=== PATIENT | male | born 1965 | race Caucasian/White ===

== ENCOUNTER 2016-09-07 12:12 | Emergency (ER) | payer BC ==
[~2016-09-07] VITALS: Ht 190.5 cm; Wt 102.1 kg
[2016-09-07 12:13] VITALS: BP 144/94
[2016-09-07] MEDS ORDERED: PARO20TA3 (12:19)
== END 2016-09-07 12:56 | disposition home or self-care (01) ==
LOC: M ED 12:37
DX: J01.90 Acute sinusitis, unspecified (principal); H92.03 Otalgia, bilateral

== ENCOUNTER 2017-07-16 22:11 | Emergency (ER) | payer BC ==
[2017-07-16] MEDS: KETOROLAC 60 MG/2 ML VIAL (J1885) IM (23:12)
[2017-07-17] MEDS: PERCOCET 5MG/325MG TAB PO (00:12)
[2017-07-17] MEDS: CYCLOBENZAPRINE 10 MG TAB PO (00:12)
== END 2017-07-17 00:24 | disposition home or self-care (01) ==
LOC: M ED 07-17 00:24
DX: M51.37 Other intervertebral disc degeneration, lumbosacral region (principal); F41.9 Anxiety disorder, unspecified; Z79.899 Other long term (current) drug therapy; F17.210 Nicotine dependence, cigarettes, uncomplicated
CPT/HCPCS: J1885

== ENCOUNTER → 2018-10-03 | Outpatient (REF) | payer BC ==
[~2018-10-03] MED LIST: CYCL10TA PO; PARO20TA3; PERC5TAB12 PO
== END ==
LOC: M LAB REF 16:38
PROVIDERS: ATTEND Physician Assistant
DX: J02.9 Acute pharyngitis, unspecified (principal)

== ENCOUNTER → 2018-10-03 | Outpatient (CLI) | payer BC ==
--- NOTE | 2018-10-03 11:19 | REP ---
Left knee five views History: Pain There is no acute fracture or dislocation. The joint spaces are normal in appearance. A calcified density is present medial to the patella. This represents ligamentous or tendon calcification. Impression: There is no acute fracture or dislocation. Electronically Signed by Leland Nugent MD 10/03/2018 11:11 A
== END ==
LOC: M WUC 10:13
PROVIDERS: ATTEND Physician Assistant
DX: M25.562 Pain in left knee (principal)

== ENCOUNTER → 2018-12-14 | Outpatient (REF) | payer BC ==
[~2018-12-14] MED LIST changes: +NAPR-837 PO; -PARO20TA3; +PARO20TA3 PO
[2018-12-14 15:51] LABS: BASO % 0.4 % (0.0-1.0); EOS # 0.2 10^3/uL (0.0-0.50); LYMPH # 2.6 10^3/uL (1.5-4.5); LYMPH % 35.9 % (24.0-44.0); MEAN CORPUSCULAR HEMOGLOBIN 31.8 pg (27.0-33.0); MEAN CORPUSCULAR HGB CONC 34.1 g/dl (32.0-36.5); MEAN CORPUSCULAR VOLUME 93.4 fl (80.0-96.0); MONO # 0.8 10^3/uL (0.0-0.8); MONO % 10.8 % (0.0-5.0); NEUTROPHILS # 3.5 10^3/uL (1.8-7.7); NEUTROPHILS % 49.8 % (36.0-66.0); PLATELET COUNT, AUTOMATED 291 10^3/uL (150-450); RED BLOOD COUNT 4.71 10^6/uL (4.30-6.10); WHITE BLOOD COUNT 7.1 10^3/uL (4.0-10.0)
[2018-12-14 16:43] LABS: ERYTHROCYTE SEDIMENTATION RATE 12 mm/hr (0-20)
[2018-12-17 00:06] LABS: Lyme Disease IgG/IgM Antibodie <0.91 ISR (0.00-0.90); Lyme Disease IgM Ab Quantitati <0.80 index (0.00-0.79)
== END ==
LOC: M LABDRAW1 13:17
PROVIDERS: ATTEND Orthopaedic Surgery
DX: M17.12 Unilateral primary osteoarthritis, left knee (principal)

== ENCOUNTER 2019-03-07 11:52 | Day surgery (SDC) | payer BC ==
[~2019-03-07] VITALS: Ht 190.5 cm; Wt 102.1 kg
[~2019-03-07 11:52] MED LIST changes: +LIDOCAINE 2% INJ 100 MG/5 ML SDV (FOR ANES.) As Ordered ONE; -NAPR-837 PO; +NS 1,000 ML IV ONE; +PROPOFOL 200 MG/20 ML VIAL As Ordered ONE
[2019-03-07] MEDS ORDERED: PHENYLephrine HCL 500 MCG/5 ML (100MCG/ML) SYRINGE (J2370) As Ordered ONE (13:46)
[2019-03-07] MEDS ORDERED: PROPOFOL 200 MG/20 ML VIAL As Ordered ONE (14:08)
--- NOTE | 2019-03-07 14:09 | ROOR ---
Patient Name: Jonathan Kaminski Procedure Date: 03/07/2019 1:35 PM Date of : 1965 Age: 53 Room: [facility] Gender: Male Note Status: Finalized Procedure: Total Colonoscopy to Cecum + Cold Snare Polypectomy + Hemoclip Indications: High risk colon cancer surveillance: Personal history of colonic polyps, Last colonoscopy: 2014 Providers: Leroy Coburn MD Referring MD: PHILIP Brown Requesting Provider: Medicines: Monitored Anesthesia Care Complications: No immediate complications. Procedure: Pre-Anesthesia Assessment: - The heart rate, respiratory rate, oxygen saturations, blood pressure, adequacy of pulmonary ventilation, and response to care were monitored throughout the procedure. The Colonoscope was introduced through the anus and advanced to the cecum, identified by appendiceal orifice and ileocecal valve. The colonoscopy was performed without difficulty. The patient tolerated the procedure well. The quality of the bowel preparation was excellent. Findings: The perianal and digital rectal examinations were normal. Non-bleeding internal hemorrhoids were found during retroflexion. The hemorrhoids were small and Grade I (internal hemorrhoids that do not prolapse). Scattered small-mouthed diverticula were found in the recto-sigmoid colon, sigmoid colon and descending colon. Multiple sessile polyps were found in the mid ascending colon. The polyps were small in size. These polyps were removed with a cold snare. Resection and retrieval were complete. To prevent bleeding after the polypectomy, one hemostatic clip was successfully placed (MR conditional). There was no bleeding at the end of the procedure. The exam was otherwise without abnormality on direct and retroflexion views. Impression: - Non-bleeding internal hemorrhoids. - Diverticulosis in the recto-sigmoid colon, in the sigmoid colon and in the descending colon. - Multiple small polyps in the mid ascending colon, removed with a cold snare. Resected and retrieved. Clip (MR conditional) was placed. - The examination was otherwise normal on direct and retroflexion views. - The exam was otherwise normal to the cecum. Recommendation: - Patient has a contact number available for emergencies. The signs and symptoms of potential delayed complications were discussed with the patient. Return to normal activities tomorrow. Written discharge instructions were provided to the patient. - High fiber diet. - Discharge patient to home. - Continue present medications. - Await pathology results. - Telephone GI clinic for pathology results in 1 week. - Repeat colonoscopy date to be determined after pending pathology results are reviewed for surveillance. - Return to referring physician. - The findings and recommendations were discussed with the patient's family. Leroy Coburn MD Leroy Coburn MD 03/07/2019 2:09:08 PM Electronically signed by Leroy Coburn MD Number of Addenda: 0 Note Initiated On: 03/07/2019 1:35 PM Estimated Blood Loss: Estimated blood loss: none.
[2019-03-07 14:35] VITALS: BP 142/95
== END 2019-03-07 14:50 | disposition home or self-care (01) ==
LOC: M OPP 11:52
PROVIDERS: ATTEND Internal Medicine Gastroenterology
DX: Z12.11 Encounter for screening for malignant neoplasm of colon (principal); Z86.010 Personal history of colon polyps; K64.0 First degree hemorrhoids; K57.30 Diverticulosis of large intestine without perforation or abscess without bleeding; D12.2 Benign neoplasm of ascending colon; F41.9 Anxiety disorder, unspecified; F17.210 Nicotine dependence, cigarettes, uncomplicated; Z79.899 Other long term (current) drug therapy
CPT/HCPCS: 45385; 88305; J2370

== ENCOUNTER 2019-04-26 07:53 | Emergency (ER) | payer OTHER, BC ==
[~2019-04-26] VITALS: Ht 190.5 cm; Wt 102.3 kg
[~2019-04-26 07:53] MED LIST changes: -LIDOCAINE 2% INJ 100 MG/5 ML SDV (FOR ANES.) As Ordered ONE; -NS 1,000 ML IV ONE; -PROPOFOL 200 MG/20 ML VIAL As Ordered ONE
--- NOTE | 2019-04-26 09:45 | REP ---
Clinical: Trauma. Fall. Technique: Frontal view of the pelvis with neutral and frog lateral views of the right hip. Findings: No obvious acute fracture dislocation. Skeletal structures, joint spaces, and surrounding soft tissues appear relatively normal for age. Impression: No acute fracture or dislocation. Electronically Signed by Joe Grimes MD 04/26/2019 09:36 A
--- NOTE | 2019-04-26 09:46 | REP ---
Clinical: Trauma. Fall. . Technique: AP, lateral, bilateral oblique, and coned-down views. Findings: Alignment and lordosis is maintained. The vertebral bodies including transverse process and spinous processes are intact and there is no evidence for acute fracture / compression injury or subluxation. No evidence for spondylolysis or spondylolisthesis. Mild/early moderate generalized age-related changes noted. Impression: Generalized age-related changes. No acute lumbosacral spine trauma/injury appreciated. Electronically Signed by Joe Grimes MD 04/26/2019 09:37 A
[2019-04-26] MEDS ORDERED: NAPR-837 PO (10:00)
[2019-04-26 10:10] VITALS: BP 111/73
== END 2019-04-26 10:12 | disposition home or self-care (01) ==
LOC: M ED 07:53
DX: S30.0XXA Contusion of lower back and pelvis, initial encounter (principal); W18.30XA Fall on same level, unspecified, initial encounter; Y92.098 Other place in other non-institutional residence as the place of occurrence of the external cause; M51.36 Other intervertebral disc degeneration, lumbar region; F41.9 Anxiety disorder, unspecified; Z79.899 Other long term (current) drug therapy

== ENCOUNTER → 2019-06-11 | Outpatient (REF) | payer BC ==
[~2019-06-11] MED LIST changes: +NAPR-837 PO
[2019-06-11 15:30] LABS: BASO % 0.6 % (0.0-1.0); EOS # 0.2 10^3/uL (0.0-0.5); EOS % 2.8 % (0.0-3.0); HEMATOCRIT 48.6 % (42.0-52.0); HEMOGLOBIN 16.2 g/dl (13.5-17.5); LYMPH # 2.4 10^3/uL (1.5-5.0); LYMPH % 37.2 % (24.0-44.0); MEAN CORPUSCULAR HEMOGLOBIN 31.4 pg (27.0-33.0); MEAN CORPUSCULAR HGB CONC 33.3 g/dl (32.0-36.5); MEAN CORPUSCULAR VOLUME 94.2 fl (80.0-96.0); MONO # 0.6 10^3/uL (0.0-0.8); MONO % 8.9 % (0.0-5.0); NEUTROPHILS # 3.2 10^3/uL (1.5-8.5); NEUTROPHILS % 50.2 % (36.0-66.0); PLATELET COUNT, AUTOMATED 312 10^3/uL (150-450); RED BLOOD COUNT 5.16 10^6/uL (4.30-6.10); WHITE BLOOD COUNT 6.4 10^3/uL (4.0-10.0)
[2019-06-11 15:55] LABS: ERYTHROCYTE SEDIMENTATION RATE 9 mm/hr (0-20)
[2019-06-11 16:02] LABS: ALBUMIN 3.9 GM/DL (3.2-5.2); BILIRUBIN,DIRECT 0.1 MG/DL (0.0-0.2); BILIRUBIN,TOTAL 0.4 MG/DL (0.2-1.0); CALCIUM LEVEL 9.1 MG/DL (8.5-10.1); TOTAL PROTEIN 7.5 GM/DL (6.4-8.2)
== END ==
LOC: M LABDRAW1 11:04
PROVIDERS: ATTEND Internal Medicine Pulmonary Disease
DX: R91.8 Other nonspecific abnormal finding of lung field (principal)

== ENCOUNTER 2020-06-24 22:27 | Emergency (ER) | payer BC ==
[~2020-06-24] VITALS: Ht 190.5 cm; Wt 108.5 kg
[~2020-06-24 22:27] MED LIST changes: +CYCL-707 PO; -CYCL10TA PO
--- OUTSIDE RECORDS SUMMARY | 2020-06-24 22:34 | CCD ---
Author [facility] Organization [facility] Address [address] [place] [address] Phone Care Team Providers Care Director [employer] Name Role Phone Isaac EDUCATION DEAN, Gina Costello PP [phone] Rola Bañuelos Unavailable [phone] [facility] Gastroenterology and Metabolic Disease, [facility] Unavailable [phone] Reason for Referral No Reason for Referral Recorded Problems Includes: Active, inactive, and resolved Problems All Visits Onset Date - Time Resolved Date - Time Provider Co ndition Status Hypertension (Systemic) 05/20/2020 - 8:41AM Gina Gray NP Active Emphysema, unspecified 01/23/2020 - 12:00AM Gina Gray NP Active Note: per pulmonary consult 01/2020 Solitary Pulmonary Nodule 05/28/2019 - 12:00AM Gina Gray NP Active Note: 16.5 mm left upper lob e Preventive Medicine Services 05/15/2019 - 12:00AM Kelsey Gray NP Active Osteoarthritis Localized Knee Left 12/12/2018 - 12:00AM Vika Aguilar RN Active Note: Mechanical problems in the left knee, probably had a remote dislocation in a general counselor, no degenerative arthritis seen on the x-ray. MRI scan recomended. Overweight 10/28/2016 - 12:00AM Ana Rosa PALACIOS Active Trigeminal Neuralgia 02/06/2013 - 12:00AM Unknown - Unknown Vika Patel NP Resolved Note: followed by dr beatrice spencer, referral to neurology made per note re eval 7-[address] spencer Vitamin D Deficiency 03/09/2011 - 12:00AM Ana Rosa PALACIOS Active Note: Unchanged Impaired Fasting Glucose 03/03/2011 - 12:00AM Unknown - Unknown Vika J. Shaben EDUCATION DEAN Resolved Note: Unchanged - FBG 101; r epeat labs pending Nicotine Dependence 03/02/2011 - 12:00AM Ana Rosairma PALACIOS Active Note: Unchanged - started ag e 20; 1/2 ppd; interested in dual therapy Elevated Blood Pressure Reading Without Diagnosis of H yperte 03/04/2010 - 12:00AM Gina Gray NP Inactive Note: Unchanged - White coat hypertension at times Hyperlipidemia 03/04/2010 - 12:00AM Ana Rosa Rodney Cline P A Active Note: Unchanged Anxiety Disorder Nos 07/15/2009 - 12:00AM Ana Rosa Rodney Rangela yamil PALACIOS Active Note: Well-Controlled - on P axil for many years Other and Unspecified Injury to Finger 10/29/2008 - 12:00AM Unkn own - Unknown Vika Patel EDUCATION DEAN Resolved Note: 09/25/08 right thumb de bridement of open fx, removal of skin fat , fascia and bone, internal fixation proximal phalanx intrarticular and extensor tendon repair done by Dr. Antoine Currently followed by [facility] whom pt went to for 2nd opinion Plan of Treatment Referrals To Diagnosis GI - Colonoscopy - Referral Note: Please schedule patient with provi jaylen; prefers [facility] GI - Colonoscopy - Referral Encntr for g eneral adult medical exam w/o abnormal findings Note: Please schedule patient with provi jaylen; requests [facility] Encounter for genera l adult medical exam w abnormal findings Note: Please schedule patient with [facility] j[facility]; colonoscopy. previously seen [facility] but would like to go to [facility] last scourer apt. language barrier with previous office. previous colonoscopy with polyps and repeat was due 04/2016. GI - Colonoscopy - Referral Leroy Coburn MD Encounter fo r screening for malignant neoplasm of colon Note: Please schedule patient with provi jaylen; colonoscopy; requesting [place]. history polyps Pulmonology Solitary pulmonary n odule Note: Please schedule patient with provi jaylen for findings on low dose CT lung. See images [facility] Urology Elevated prosta te specific antigen [PSA] Note: Please schedule patient with [facility] in [place] Future Appointments Date Time Location Provider Chronic Disease Follow-up 11/24/2020 4:00PM [facility] Gina Gray NP Future Tests Order Diagnosis Results Due Ordering Provid er Visit Summary - Standard Visit Visit Summary Standard Visi t Essential (primary) hypertension 06/05/20 Gina Gray EDUCATION DEAN Lab CBC w/ Auto Diff 12/02/20 Gina Gu imball EDUCATION DEAN Lab COMPREHENSIVE METABOLIC PANEL 12/02/20 Gina Gray EDUCATION DEAN Lab LIPID PANEL 12/02/20 Ginakatey Burton ll EDUCATION DEAN Lab TSH 12/02/20 Gina Burton ll EDUCATION DEAN Findings Encounter Date Ordered return to the clinic if condition worsens or n ew symptoms arise Primary Care Telehealth FaceTime with Gina Gray NP 06/03/2020 Ordered return to the clinic if condition worsens or n ew symptoms arise Acute Follow-up Telehealth with Gina Gray NP 05/21/2020 Ordered return to the clinic if condition worsens or n ew symptoms arise AHR with Gina Gray NP 05/20/2020 Ordered Clinical summary transmitted to referring provider electronically with reasonable certainty of receipt or receiving provider electronically through [employer] [facility] Follow-up Labs with Gina Gray NP 05/28/2019 Ordered Clinical summary transmitted to referring provider electronically with reasonable certainty of receipt or receiving provider electronically through [employer] [facility] Establish Care with Gina Gray NP 05/15/2019 Ordered Clinical summary transmitted to referring provider electronically or receiving provider electronically through [employer] [facility] AHR with Ana Rosa PALACIOS 05/09/2018 Ordered return to the clinic if condition worsens or n ew symptoms arise AHR with Ana Rosa PALACIOS 05/09/2018 Ordered return to the clinic if condition worsens or n ew symptoms arise AHR with Ana Rosa Cline PA 05/05/2017 Ordered Transition in care, clinical sum mariluz provided electronically through [employer] Chronic Disease Follow-up with Ana Rosa PALACIOS 10/28/2016 Return to the clinic if condition worsens or new sympt oms arise Chronic Disease Follow-up with Ana Rosa PALACIOS 10/28/2016 Ordered fluids Walk-In with Mariluz Hastings EDUCATION DEAN 10/11/2016 Ordered return to the clinic if condition worsens or n ew symptoms arise Walk-In with Mariluz Hastings EDUCATION DEAN 10/11/2016 Ordered Transition in care, clinical sum mariluz provided electronically through [employer] Walk-In with Mariluz Hastings NP 10/11/2016 Ordered return to the clinic if condition worsens or n ew symptoms arise AHR with Ana Rosa PALACIOS 07/22/2015 Ordered disposition - 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 Patient or quality assurance was instructed in use of medication for otitis media. Importance of followup was stressed. Also discussed appropiate use of antipyretics and decongestants. Also, the patient is to return if there is persistnece of fever or severe pain for more than 48 hours, or other new significant symptoms Same Day Acute with Mariluz Hastings NP 09/16/2013 Ordered return to the clinic if condition worsens or n ew symptoms arise Same Day Acute with Mariluz Hastings NP 09/16/2013 Ordered follow-up visit 1 year Medication Follow-up with Matt Patel NP 07/11/2013 Ordered return to the clinic if condition worsens or n ew symptoms arise Medication Follow-up with Vika Patel NP 07/11/2013 Medications as reviewed. Order CXR Tylenol PRN RTC if symptoms persist or worsen M Same Day with Roselyn Box NP 07/04/2012 Ordered return to the clinic if condition worsens or n ew symptoms arise M Same Day with Roselyn Box NP 07/04/2012 Ordered follow-up visit 1 year AHR with Vika Patel NP 03/07/2012 Ordered return to the clinic if condition worsens or n ew symptoms arise AHR with Vika Patel NP 03/07/2012 Ordered follow-up visit 6 months/ 1 year 30 minutes with Emely Patel NP 03/02/2011 Ordered return to the clinic if condition worsens or n ew symptoms arise 30 minutes with Vika Patel NP 03/02/2011 Advised to increase PO fluids and inc rease rest. Tylenol / motrin prn pain / fever. Will send urine for urinalysis and culture. May consider urology referral if he has had history of infections in past. He routinely sees Vika Patel NP who is PCP. He was advised to RTC if no improvement in 48 hours or sooner with new or worsening sx. Patient expressed understanding and agreed with plan M Same Day with Queta Aponte NP 08/27/2010 Ordered return to the clinic if condition worsens or n ew symptoms arise M Same Day with Queta Aponte NP 08/27/2010 Ordered fluids M Same Day with Mariluz PALACIOS 04/08 Ordered return to the clinic if condition worsens or n ew symptoms arise M Same Day with Mariluz PALACIOS 04/08/2010 Ordered a lipid profile 30 minutes with Vika Patel NP 03/04/2010 Ordered CBC CMP, TSH, PSA 30 minutes with Vika Patel NP 03/04/2010 Ordered follow-up visit 6 months 30 minutes with Vika Patel NP 03/04/2010 Ordered fluids M Office Visit - Short with Sotero brand DO 01/19/2010 Ordered return to the clinic if condition worsens or n ew symptoms arise M Office Visit - Short with Sotero Wren DO 01/19/2010 Ordered a comprehensive metabolic panel CBC Lipids 3 0 minutes with Vika Patel NP 07/15/2009 Ordered follow-up visit 30 minutes with Vika Patel NP 07/15/2009 Ordered thyroid function tests 30 minutes with Vika regalado NP 07/15/2009 Assessments Includes: Assessments for all patient encounters Findings Encounter Date Conjunctivitis in the left eye Primary Care Telehealth FaceTime with Gina Gray EDUCATION DEAN 06/03/2020 Hypertension Primary Care Telehealth FaceTime with Landon Gray EDUCATION DEAN 06/03/2020 Nicotine dependence Primary Care Telehealth FaceTime with Landon Gray EDUCATION DEAN 06/03/2020 Overweight Primary Care Telehealth FaceTime with Landon Gray EDUCATION DEAN 06/03/2020 Assessment of nonspecific abnormal results of liver fu nction studies Acute Follow-up Telehealth with Gina Gray EDUCATION DEAN 05/21/2020 Assessment of prostate-specific antigen in serum was e levated Acute Follow-up Telehealth with Gina Gray EDUCATION DEAN 05/21/2020 Anxiety disorder NOS AHR with Gina Gray EDUCATION DEAN Conjunctivitis in the left eye AHR with Gina Gray EDUCATION DEAN 05/20/2020 Dermatitis AHR with Gina Gray EDUCATION DEAN 05/20/2020 Hyperlipidemia AHR with Gina L Vinton EDUCATION DEAN 05/20/2020 Hypertension AHR with Gina L Vinton EDUCATION DEAN 05/20/2020 Nicotine dependence AHR with Gina L Vinton EDUCATION DEAN 05/20/2020 Overweight AHR with Gina L Vinton EDUCATION DEAN 05/20/2020 Visit for: routine adult H&P with abnormal findings AH R with Gina L Isaac EDUCATION DEAN 05/20/2020 Assessment of solitary pulmonary nodule Follow-up Labs with Gina L Isaac EDUCATION DEAN 05/28/2019 Anxiety disorder NOS Establish Care with Gina L Isaac N P 05/15/2019 Hyperlipidemia Establish Care with Gina L Vinton EDUCATION DEAN 05/15/2019 Nicotine dependence Establish Care with Gina L Isaac EDUCATION DEAN 05/15/2019 Overweight Establish Care with Gina L Vinton EDUCATION DEAN 05/15/2019 Visit for routine adult H&P without abnormal findings Establish Care with Gina L Isaac EDUCATION DEAN 05/15/2019 Vitamin D deficiency Establish Care with Gina L Vinton N P 05/15/2019 Anxiety disorder NOS AHR with Ana Rosa T [place] PA 05/09/2018 Hyperlipidemia AHR with Ana Rosa T [place] PA 05/09/2018 Nicotine dependence AHR with Ana Rosa T Son PA 05/09/2018 Visit for: routine adult H&P AHR with Ana Rosa T Son PA Vitamin D deficiency AHR with Ana Rosa T [place] PA 05/09/2018 Anxiety disorder NOS AHR with Ana Rosa T Son PA 05/05/2017 Upper respiratory infection AHR with Ana Rosa T [place] PA 07/2017 Visit for: routine adult H&P AHR with Ana Rosa T Son PA Anxiety disorder NOS Chronic Disease Follow-up with Ana Rosa T [place] PA 10/28/2016 Hyperlipidemia Chronic Disease Follow-up with Ana Rosa T [place] PA 10/28/2016 Nicotine dependence Chronic Disease Follow-up with Ana Rosa T Son PA 10/28/2016 Overweight Chronic Disease Follow-up with Ana Rosa T [place] PA 10/28/2016 Vitamin D deficiency Chronic Disease Follow-up with Ana Rosa T [place] PA 10/28/2016 Viral syndrome Walk-In with Mariluz Hastings EDUCATION DEAN 10/11/2016 Anxiety disorder NOS AHR with Ana Rosa T [place] PA 07/22/2015 Hyperlipidemia AHR with Ana Rosa T Son PA 07/22/2015 Nicotine dependence AHR with Ana Rosa T [place] PA 07/22/2015 Visit for: routine adult H&P AHR with Ana Rosa T [place] PA Vitamin D deficiency AHR with Ana Rosa T [place] PA 07/22/2015 Anxiety disorder NOS AHR with Ana Rosa T [place] PA 07/16/2014 Hyperlipidemia AHR with Ana Rosa T [place] PA 07/16/2014 Nicotine dependence AHR with Ana Rosa T Son PA 07/16/2014 Normal routine history and physical adult AHR with Ana Rosa T Son PA 07/16/2014 Vitamin D deficiency AHR with Ana Rosa T Son PA 07/16/2014 Acute bronchitis Same Day Acute with Mariluz Nicole Navi talamantes EDUCATION DEAN 09/16/2013 Otitis media BILAT Same Day Acute with Elainedonte talamantes EDUCATION DEAN 09/16/2013 Anxiety disorder NOS Medication Follow-up with Vika regalado NP 07/11/2013 Nicotine dependence Medication Follow-up with Vika kent EDUCATION DEAN 07/11/2013 Normal routine history and physical Medication Follow- up with Vika Patel NP 07/11/2013 Bronchitis M Same Day with Roselyn Box EDUCATION DEAN 013 Normal routine history and physical s ee updated problem list above for impression and plan of any problems addressed today. AHR with Vika Patel EDUCATION DEAN 03/07/2012 Normal routine history and physical Anxiety Elevated BP without diagnosis of hypertension 30 minutes with Vika Patel NP 03/02/2011 Urinary tract infection M Same Day with Queta Aponte NP Bronchitis M Same Day with Mariluz PALACIOS 04/08 Impaired fasting glucose M Same Day with Mariluz PALACIOS 04/08/2010 Pharyngitis M Same Day with Mariluz PALACIOS 04/08 Impaired Fasting Glucose Elevated BP without dx of hypertension 30 minutes with Vika Patel NP 03/04/2010 Anxiety disorder NOS 30 minutes with Vika Patel NP 06/2009 Hyperlipidemia 30 minutes with Vika Patel NP 06/2009 Nicotine dependence - continuous M Office Visit - Shor t with Sotero Wren DO 01/19/2010 Upper respiratory infection M Office Visit - Short with Indy Wren DO 01/19/2010 Generalized anxiety disorder 30 minutes with Vika del angel NP 07/15/2009 Instructions Instructions not supported for this document typeNo Instructions Recorded Medical Equipment - Implanted Devices Includes: Current and historical DevicesNo Medical Equipment Recorded Medications Includes: Current and historical Medications Current Medications (continue as prescribed) Gentamicin Sulfate 0.3% Ophthalmic Solution 06/03/2020 - 07/2020 Provider: Gina Gray NP Diagnosis: Unspecified conjunct ivitis 2 drops both eyes 4 times a day for 7 days PARoxetine HCl 20 MG Oral Tablet 05/20/2020 Provide r: Gina Gray NP Diagnosis: Anxiety disorder, un specified 1 tab by mouth once a day Past Medications on file Erythromycin 5 MG/GM Ophthalmic Ointment 05/20/2020 - 2020 Provider: Gina Gray NP Diagnosis: Unspecified conjunct ivitis 0.5 inch ribbon to both eyes 4 times daily for 7 days PARoxetine HCl 20 MG Oral Tablet 05/05/2020 - 05/20/2020 Pro vider: Gina Gray NP Diagnosis: Hyperlipidemia, unsp ecified 1 tab by mouth once a day Anoro Ellipta 62.5-25 MCG/INH Inhalation Aerosol Powde r Breath Activated 06/14/2019 - 10/11/2019 Provider: Pepe Torres MD Diagnosis: Paxil 20 MG Oral Tablet 05/10/2019 - 05/05/2020 Provider: Gina Gray NP Diagnosis: Hyperlipidemia, unsp ecified once a day Nicotine 7MG/24HR Transdermal Patch 24 Hour 06/09/2018 - Provider: Ana Rosa PALACIOS Diagnosis: Nicotine dependence, cigarettes, uncomplicated once a day; 1 patch transdermal; change every 24 hours; begin after finishing 14 mg patch Nicotine 14MG/24HR Transdermal Patch 24 Hour 06/09/2018 - Provider: Ana Rosa PALACIOS Diagnosis: Nicotine dependence, cigarettes, uncomplicated once a day; 1 patch transdermal; change every 24 hours Paxil 20MG Oral Tablet 05/09/2018 - 05/10/2019 Provider: Ana Rosa PALACIOS Diagnosis: Hyperlipidemia, unsp ecified once a day Nicotine Polacrilex 4MG Mouth/Throat Lozenge 05/09/2018 - Provider: Ana Rosa PALACIOS Diagnosis: Nicotine dependence, cigarettes, uncomplicated as directed; place losenge in cheek as n eeded for breakthrough cravings; use lowest affective dose; MDD 2 losenges Nicotine 21MG/24HR Transdermal Patch 24 Hour 05/09/2018 - Provider: Ana Rosa PALACIOS Diagnosis: Nicotine dependence, cigarettes, uncomplicated once a day; 1 patch transdermal q 24 hours Paxil 20MG Oral Tablet 05/09/2018 - 05/09/2018 Provider: Ana Rosa PALACIOS Diagnosis: Hyperlipidemia, unsp ecified once a day Paxil 20MG Oral Tablet 05/05/2017 - 05/09/2018 Provider: Ana Rosa PALACIOS Diagnosis: Hyperlipidemia, unsp ecified once a day Benzonatate 200MG Oral Capsule 10/11/2016 - 10/28/2016 Provi jaylen: Mariluz Hastings NP Diagnosis: three times a day prn cough Ventolin HFA 108 (90 Base)MCG/ACT Inhalation Aerosol S olution 10/11/2016 - 05/05/2017 Provider: Mariluz Hastings NP Diagnosis: 2 PUFFS INH Q 4 - 6 HRS PRN Paxil 20MG Oral Tablet 09/30/2016 - 05/05/2017 Provider: Ana Rosa PALACIOS Diagnosis: Hyperlipidemia, unsp ecified once a day Paxil 20 MG Tablet 10/20/2015 - 10/11/2016 Provider: Ana Rosa PALACIOS Diagnosis: Anxiety disorder, un specified qd - once a day once a day 1 tab po daily Paxil 20 MG Tablet 10/02/2015 - 09/30/2016 Provider: Ana Rosa PALACIOS Diagnosis: Hyperlipidemia, unsp ecified once a day Paxil 20 MG Tablet 10/02/2015 - 10/20/2015 Provider: Ana Rosa PALACIOS Diagnosis: Anxiety disorder, un specified qd - once a day once a day 1 tab po daily Paxil 20 MG Tablet 07/22/2015 - 10/02/2015 Provider: Ana Rosa PALACIOS Diagnosis: Hyperlipidemia, unsp ecified once a day Paxil 20 MG Tablet 07/22/2015 - 10/02/2015 Provider: Ana Rosa PALACIOS Diagnosis: Anxiety disorder, un specified qd - once a day once a day 1 tab po daily Vitamin D 1000 UNIT Tablet 08/30/2014 - 07/22/2015 Provider: Diagnosis: Paxil 20 MG Tablet 07/16/2014 - 07/22/2015 Provider: Ana Rosa PALACIOS Diagnosis: Anxiety State Unspec ified qd - once a day once a day 1 tab po daily Augmentin 875-125 MG OR TABS 09/16/2013 - 07/16/2014 Provide r: Mariluz Leavittanagan EDUCATION DEAN Diagnosis: Paxil 20 MG OR TABS 07/11/2013 - 07/16/2014 Provider: Vika Patel NP Diagnosis: Anxiety State Unspec ified 1 tab po daily Paxil 20 MG OR TABS 05/09/2013 - 07/11/2013 Provider: Vika Patel EDUCATION DEAN Diagnosis: Anxiety State Unspec ified 1 tab po daily carBAMazepine 100 MG OR CHEW 02/06/2013 - 07/11/2013 Provide r: Diagnosis: per dr spencer 100mg tablet Ventolin HFA 108 (90 Base) MCG/ACT IN AERS 07/04/2012 - 11/2012 Provider: Roselyn Box NP Diagnosis: Acute Bronchitis take 2 puffs QID PRN cough/wheezing Medrol (Frank) 4 MG OR TABS 07/04/2012 - 02/06/2013 Provider: Roselyn Box NP Diagnosis: Acute Bronchitis take as directed. Zithromax Z-Frank 250 MG OR TABS 07/04/2012 - 02/06/2013 Provi jaylen: Roselyn Box NP Diagnosis: Acute Bronchitis take 2 tabs PO day 1, then 1 tab PO day 2-5 Vitamin D 1000 UNIT OR CAPS 03/07/2012 - 07/04/2012 Provider : Diagnosis: Paxil 20 MG OR TABS 03/07/2012 - 05/09/2013 Provider: Vika Patel NP Diagnosis: Anxiety State Unspec ified 1 tab po daily Paxil 20 MG OR TABS 10/15/2011 - 03/07/2012 Provider: Vika Patel NP Diagnosis: Anxiety State Unspec ified 1 tab po daily Vitamin D 1000 UNIT OR CAPS 03/09/2011 - 03/07/2012 Provider : Diagnosis: Paxil 20 MG OR TABS 03/02/2011 - 10/15/2011 Provider: Vika Patel NP Diagnosis: Anxiety State Unspec ified 1 tab po daily Cipro 500 MG OR TABS 08/27/2010 - 03/02/2011 Provider: Queta Aponte NP Diagnosis: Paxil 20 MG OR TABS 08/26/2010 - 03/02/2011 Provider: Vika Patel NP Diagnosis: Anxiety State Unspec ified 1 tab po daily Zithromax Z-Frank 250 MG OR TABS 04/08/2010 - 08/24/2010 Provi jaylen: Mariluz PALACIOS Diagnosis: 2 tabs po day one, 1tab po daily days 2- 5 Medrol (Frank) 4 MG OR TABS 04/08/2010 - 08/24/2010 Provider: Mariluz PALACIOS Diagnosis: Paxil 20 MG OR TABS 03/04/2010 - 08/26/2010 Provider: Vika Patel NP Diagnosis: Anxiety State Unspec ified 1 tab po daily Paxil 20 MG OR TABS 03/04/2010 - 08/24/2010 Provider: Vika Patel NP Diagnosis: Generalized Anxiety Disorder 1 daily Proventil HFA 108 (90 Base) MCG/ACT IN AERS 01/19/2010 - 06/2009 Provider: Sotero Wren DO Diagnosis: 2 puffs up to QID PRN - guaiFENesin-Codeine 100-10 MG/5ML OR SYRP 01/19/2010 - 03/04 Provider: Sotero Wren DO Diagnosis: 2 tsp at bedtime if needed Paxil 20 MG OR TABS 07/15/2009 - 03/04/2010 Provider: Vika Patel NP Diagnosis: Generalized Anxiety Disorder 1 daily Paxil 20 MG OR TABS 07/15/2009 - 07/15/2009 Provider: Vika Patel NP Diagnosis: Generalized Anxiety Disorder 1 daily Ambien 10 MG OR TABS 03/25/2008 - 07/15/2009 Provider: Dwain Leach RPA-C Diagnosis: 1 hs as directed Paxil 20 MG OR TABS 03/25/2008 - 07/15/2009 Provider: Dwain Leach RPA-C Diagnosis: 1 daily Paxil 20 MG OR TABS 03/25/2008 - 07/15/2009 Provider: Dwain Leach RPA-C Diagnosis: Generalized Anxiety Disorder 1 daily Paxil 20 MG OR TABS 02/14/2007 - 03/25/2008 Provider: Coral Munoz DO Diagnosis: Generalized Anxiety Disorder Tobramycin Sulfate 0.3% OP SOLN 12/26/2006 - 07/15/2009 Prov ider: Sotero Coello Siena CONTE Diagnosis: 2 drops 4 times a day, affected eye(s) Medications Administered Includes: Administered Medications in patient's chartNo Administered Medications Recorded Vital Signs Includes: Vital Signs from 06/05/2019 through 06/05/2020 Vital Name 06/03/2020 03:33P 05/21/2020 01:21P 05/20/2020 09:31A 05/20/2020 08:16A Pain Level 0 0 0 Blood Pressure Sitting R 128/80 138 /98 BP Cuff Size Large Pulse Rate-Sitting (bpm) 75 Pulse Rhythm Regular Respiration Rate (breaths/min) 18 Temp-Tympanic (F) 96.3 Height (in) 73 Weight (lb) 225 Body Mass Index (kg/m2) 29.7 Body Surface Area (m2) 2.26 Oxygen Saturation (%) 97 Flow Rate (l/min) (None (Ro om Air)) FiO2 (%) 21 Note: pt unable to obtain vitals Results Includes: Results from 06/05/2019 through 06/05/2020 GAMMA GLUTAMYL TRANSPEPTIDASE [facility] Ordered by Gina Gray NP on 05/21/[address] [place] [address], [id number] Collected: 05/20/2020 Reported: 05/22/2020 08:15 tel :[phone] GAMMA GLUTAMYL TRANSPEPTIDASE 41 U/L (5-90) N (Normal) Note: Responsible Observer: GGT GAMMA GL UTAMYL TRANSPEPTIDASE 300.3000 (A) Reviewed by Gina Gray NP on 05/03; All test results are final unless otherwise noted. Reported Physicians [facility] Ordered by Gina Gray NP on 05/21/[address] [place] [address], [id number] Collected: 05/20/2020 Reported: 05/22/2020 08:16 tel :[phone] Reported Physicians See Note None Note: Reported Physicians:Ordering: Gina Abbottding: Gina Gray Reviewed by Gina Gray NP on 05/03; All test results are final unless otherwise noted. RHEUMATOID FACTOR [facility] Ordered by Gina Gray NP on 05/20/[address] [place], [address] Collected: 05/20/2020 Reported: 05/20/2020 14:15 tel :[phone] RHEUMATOID FACTOR NEGATIVE (NEGATIVE) None Note: Test performed by latex agglutina tion methodologyResponsible Observer: RHEUMATOID FACT RHEUMATOID FACTOR 500.0600 (A) Reviewed by Gina Gray NP on 05/03; All test results are final unless otherwise noted. SED RATE [facility] Ordered by Gina Gray NP on 05/20/[address] [place], [address] Collected: 05/20/2020 Reported: 05/20/2020 14:17 tel :[phone] SED RATE 13 mm/hr (0-20) N (Normal) Note: Responsible Observer: ESR SED RATE 100.6000 (A) Reviewed by Gina Gray NP on 05/03; All test results are final unless otherwise noted. URIC ACID [facility] Ordered by Gina Gray NP on 05/20/[address] [place], [address] Collected: 05/20/2020 Reported: 05/22/2020 08:15 tel :[phone] URIC ACID 7.2 MG/DL (2.6-7.2) N (Normal) Note: Responsible Observer: URIC URIC AC ID 300.2150 (A) Reviewed by Gina Gray NP on 05/03; All test results are final unless otherwise noted. C-REACTIVE PROTEIN [facility] Ordered by Gina Gray NP on 05/20/[address] [place], [address] Collected: 05/20/2020 Reported: 05/22/2020 08:15 tel :[phone] C-REACTIVE PROTEIN 13 MG/L (0.00-5.00) H (High) Note: Responsible Observer: C-REACTIVE P ROT C-REACTIVE PROTEIN 300.3650 (A) Reviewed by Gina Gray NP on 05/03; All test results are final unless otherwise noted. Cyclic Citrullinat Pep IgG/IgA [facility] Ordered by Gina Gray NP on 05/20/[address] [place] [address], [address] Collected: 05/20/2020 Reported: 05/22/2020 09:24 tel :[phone] Cyclic Citrullinat Pep IgG/IgA 12 units (0-19) None Note: Negativ e <20 Weak positive 20 - 39 Moderate positive 40 - 59 Strong positive >59 Performed at: - [facility] [address] [id number] Rug Dyer Helper: David Sanchez MD, Phone: [phone] Observer: Cyclic Cit Pep Cyclic Citrullinat Pep IgG/IgA [id number] [phone] (A) Reviewed by Gina Gray NP on 05/03; All test results are final unless otherwise noted. Antinuclear Antibodies, IFA [facility] Ordered by Gina Gray NP on 05/20/[address] [place] [address], [address] Collected: 05/20/2020 Reported: 05/22/2020 09:24 tel :[phone] SALLY,IFA,S Negative (.) None Note: Negative <1:80 Borderline 1:80 Positive >1:80 Performed at: - [facility] [address] [id number] [place] D[place] Helper: Hallie Ariza MD, Phone: [phone] Observer: SALLY,IFA,S SALLY,IFA,S [id number] [phone] (A) Reviewed by Gina Gray NP on 05/03; All test results are final unless otherwise noted. Reported Physicians [facility] Ordered by Gina Gray NP on 05/20/[address] [place], [address] Collected: 05/20/2020 Reported: 05/22/2020 09:24 tel :[phone] Reported Physicians See Note None Note: Reported Physicians:Ordering: Gina Abbott LAttending: Gina Gray Reviewed by Gina Gray NP on 05/03; All test results are final unless otherwise noted. CBC w/ Auto Diff [facility] Ordered by Gina Gray NP on 05/20/[address] [place] [address], [address] Collected: 05/20/2020 Reported: 05/20/2020 14:17 tel : BASO # (AUTO) 0.04 10\^3/uL (0.00-0.20) N (Normal) Note: Responsible Observer: BASO # (AUTO ) BASO # (AUTO) 100.1500 (A) BASO % (AUTO) 0.6 % (0.0-2.0) N (Normal) Note: Responsible Observer: BASO % (AUTO ) BASO % (AUTO) 100.1250 (A) EOS # (AUTO) 0.17 10\^3/uL (0.00-1.10) N (Normal) Note: Responsible Observer: EOS # (AUTO) EOS # (AUTO) 100.1450 (A) EOS % (AUTO) 2.7 % (0.0-11.0) N (Normal) Note: Responsible Observer: EOS % (AUTO) EOS % (AUTO) 100.1200 (A) GRAN # (AUTO) 3.22 10\^3/uL (1.50-6.50) N (Normal) Note: Responsible Observer: GRAN # (AUTO ) GRAN #(AUTO) 100.1325 (A) GRAN % (AUTO) 51.1 % (42.0-75.0) N (Normal) Note: Responsible Observer: GRAN % (AUTO ) GRAN % (AUTO) 100.1000 (A) HEMATOCRIT 47.6 % (41.0-53.0) N (Normal) Note: Responsible Observer: HCT HEMATOCR IT 100.0400 (A) HEMOGLOBIN 15.8 G/DL (13.0-17.5) N (Normal) Note: Responsible Observer: HGB HEMOGLOB IN 100.0300 (A) IG # (AUTO) 0.0 10\^3/uL (<0.5) None Note: Responsible Observer: IG # (AUTO) IG # (AUTO) 100.1260 (A) IG % (AUTO) 0.3 % (1.00-5.00) None Note: Responsible Observer: IG % (AUTO) IG % (AUTO) 100.1255 (A) LYMPH # (AUTO) 2.2 k/uL (1.0-5.0) N (Normal) Note: Responsible Observer: LYMPH # (AUT O) LYMPH # (AUTO) 100.1350 (A) LYMPH % (AUTO) 35.3 % (20.0-51.0) N (Normal) Note: Responsible Observer: LYMPH % (AUT O) LYMPH % (AUTO) 100.1100 (A) MCH 30.9 PG (27.0-34.0) N (Normal) Note: Responsible Observer: MCH MCH 100 .0600 (A) MCHC 33.2 G/DL (32-36) N (Normal) Note: Responsible Observer: MCHC MCHC 1 00.0650 (A) MCV 93.2 FL (80.0-100.0) N (Normal) Note: Responsible Observer: MCV MCV 100 .0550 (A) MONO # (AUTO) 0.63 k/uL (0.20-1.50) N (Normal) Note: Responsible Observer: MONO # (AUTO ) MONO # (AUTO) 100.1400 (A) MONO % (AUTO) 10.0 % (2.0-15.0) N (Normal) Note: Responsible Observer: MONO % (AUTO ) MONO% (AUTO) 100.1150 (A) MPV 9.3 FL (8.7-13.2) N (Normal) Note: Responsible Observer: MPV MPV 100 .0950 (A) PLATELET COUNT 355 10\^3/uL (130-400) N (Normal) Note: Responsible Observer: PLT PLATELET COUNT 100.0850 (A) RED BLOOD COUNT 5.11 10\^6/uL (4.30-5.80) N (Normal) Note: Responsible Observer: RBC RED BLOO D COUNT 100.0250 (A) RDW 12.5 % (11.5-14.5) N (Normal) Note: Responsible Observer: RDW RDW 100 .0700 (A) WHITE BLOOD COUNT 6.31 10\^3/uL (4.00-10.50) N (Normal) Note: Responsible Observer: WBC WHITE BL OOD COUNT 100.0150 (A) Reviewed by Gina Gray NP on 05/03; All test results are final unless otherwise noted. COMPREHENSIVE METABOLIC PANEL [facility] Ordered by Gina Gray NP on 05/20/[address] [place] [address], [address] Collected: 05/20/2020 Reported: 05/22/2020 08:15 tel :[phone] ALB/GLOB RATIO 2.1 G/DL (1.0-3.0) N (Normal) Note: Responsible Observer: A/G RATIO AL B/GLOB RATIO 300.4100 (A) ALBUMIN 4.7 G/DL (3.0-5.1) N (Normal) Note: Responsible Observer: ALB ALBUMIN 300.3900 (A) ALKALINE PHOSPHATASE 141 U/L (40-140) H (High) Note: Responsible Observer: ALK PHOS ALK LOREE PHOSPHATASE 300.3110 (A) ALT 25 U/L (5-48) N (Normal) Note: Responsible Observer: ALT/SGPT ALT 300.3100 (A) AST 22 U/L (5-40) N (Normal) Note: Responsible Observer: AST/SGOT AST 300.3050 (A) BUN/CREAT RATIO 15 (8-36) N (Normal) Note: Responsible Observer: BUN/CREAT RA MATY BUN/CREAT RATIO 300.0450 (A) BILIRUBIN,TOTAL 0.5 MG/DL (0.1-1.3) N (Normal) Note: Responsible Observer: TOTAL BILI T OTAL BILIRUBIN 300.2700 (A) BLOOD UREA NITRO 17 MG/DL (7-25) N (Normal) Note: Responsible Observer: BUN BLOOD UR EA NITROGEN 300.0350 (A) CA 9.6 MG/DL (8.7-10.5) N (Normal) Note: Responsible Observer: CA CALCIUM 300.2200 (A) CHLORIDE 104 MEQ/L (94-110) N (Normal) Note: Responsible Observer: CL CHLORIDE 300.0200 (A) CARBON DIOXIDE 28 MEQ/L (22-33) N (Normal) Note: Responsible Observer: CO2 CARBON D IOXIDE 300.0250 (A) CREATININE 1.1 MG/DL (0.6-1.4) N (Normal) Note: Responsible Observer: CREAT CREATI NINE 300.0400 (A) ANION GAP 9 (5-16) N (Normal) Note: Responsible Observer: ANION GAP AN ION GAP 300.0300 (A) GFR 69.2 ML/MIN None Note: Stage G2 - Mildly decreased kidne y function The GFR is an estimate of the Glomerular Filtration Rate. It is an aid to assess a patient's renal function. It is not a conclusive diagnosis of kidney disease. GFR normal is >=90 The MDRD GFR calculation is considered valid between the ages of 18 and 75 years only.Responsible Observer: GFR GFR 300.0410 (A) GLOBULIN 2.2 G/DL (1.5-3.5) N (Normal) Note: Responsible Observer: GLOB GLOBULI N 300.4050 (A) GLUCOSE 98 MG/DL (70-100) N (Normal) Note: Responsible Observer: GLU GLUCOSE 300.0500 (A) POTASSIUM 4.5 MEQ/L (3.5-5.3) N (Normal) Note: Responsible Observer: K POTASSIUM 300.0150 (A) SODIUM 136 MEQ/L (135-145) N (Normal) Note: Responsible Observer: NA SODIUM 3 00.0100 (A) TOTAL PROTEIN 6.9 G/DL (5.9-8.3) N (Normal) Note: Responsible Observer: TP TOTAL PRO TEIN 300.3750 (A) Reviewed by Gina Gray NP on 05/03; All test results are final unless otherwise noted. LIPID PANEL [facility] Ordered by Gina Gray NP on 05/20/[address] [place] [address], [address] Collected: 05/20/2020 Reported: 05/22/2020 08:15 tel :[phone] CHOL/HDL RATIO 5.6 (0-4.9) H (High) Note: Responsible Observer: CHOL/HDL RAT IO CHOL/HDL RATIO 300.4700 (A) CHOLESTEROL 201 MG/DL (125-200) H (High) Note: Responsible Observer: CHOL CHOLEST MARYANN 300.4350 (A) HDL CHOLESTEROL 36 MG/DL (39-96) L (Low) Note: Responsible Observer: HDL HDL CHOL ESTEROL 300.4600 (A) LDL CHOLESTEROL 142 MG/DL (50-130) H (High) Note: Responsible Observer: LDL LDL CHOL ESTEROL 300.4400 (A) TRIGLYCERIDES 116 MG/DL (45-150) N (Normal) Note: Responsible Observer: TRIG TRIGLYC ERIDES 300.4300 (A) Reviewed by Gina Gray NP on 05/03; All test results are final unless otherwise noted. PSA SCREEN [facility] Ordered by Gina Gray NP on 05/20/[address] [place], [address] Collected: 05/20/2020 Reported: 05/22/2020 08:15 tel : PSA SCREEN 7.92 NG/ML (0.06-4.00) H (High) Note: Do not interpret PSA results as a bsolute evidence of the presence or absence of Malignant Disease. The obtained PSA value should be used in conjunction with information available from clinical evaluation and other diagnostic procedures. Following post-radical prostatectomy, the guidelines for biochemical recurrence of prostate cancer is a detectable or rising PSA value that is greater than or equal to 0.2 ng/ml with a second confirmatory level of greater than or equal to 0.2 ng/ml. The result for the PSA is determined using the [place] [employer] System that utilizes a direct chemiluminometric technology. The result is not interchangeble with different assay methods.Responsible Observer: PSA PROSTATE SPECIFIC ANTIGEN 300.5105 (A) Reviewed by Gina Gray NP on 05/03; All test results are final unless otherwise noted. TSH [facility] Ordered by Gina Gray NP on 05/20/[address], [place], [address] Collected: 05/20/2020 Reported: 05/22/2020 08:15 tel : TSH 1.922 uIU/ML (0.470-4.200) N (Normal) Note: Patients should not be tested for 72 hours post fluorescein dye angiography. A false depression of result may occur.Responsible Observer: TSH TSH 300.5500 (A) Reviewed by Gina Gray NP on 05/03; All test results are final unless otherwise noted. Reported Physicians [facility] Ordered by Gina Gray NP on 05/20/[address] [place], [address] Collected: 05/20/2020 Reported: 05/22/2020 08:16 tel : Reported Physicians See Note None Note: Reported Physicians:Ordering: Gina Abbottding: Gina Gray Reviewed by Gina Gray EDUCATION DEAN on 05/03; All test results are final unless otherwise noted. History of Present Illness History of Present Illness not supported for this document typeNo History of Present Illness Recorded Social History Description Last Updated Caffeine use was one 1 liter 06/03/2020 Secondhand cigarette smoke exposure 06/03/2020 Smoking status 06/03/2020 : Current everyday smoker 06/2020 Alcohol use (male) less than 4 drinks per occasion / 14 per week 05/20/2020 Daily cola consumption 1 liter 05/20/2020 No domestic violence 05/20/2020 Not using drugs 05/20/2020 Procedures and Surgical History Surgical History Last Updated History of chest tube insertion 05/02/2009 s/p spontan eous pneumothorax 05/20/2020 History of orthopedic surgery surgical repair of righ t thumb after an injury 05/20/2020 Medical History Includes: Medical History in patient's chart Description Last Updated Colon polyps 05/09/2018 History of anxiety disorder NOS 05/09/2018 Past medical history -Please see Problem List for Act halie Chronic Problems 05/09/2018 Family History Includes: Family History in patient's chart Description Last Updated Family history of cancer father-prostate 05/15/2019 Maternal history of not using drugs 05/15/2019 No maternal history of depression 05/15/2019 No paternal history of depression 05/15/2019 Paternal history of not using drugs 05/15/2019 Family history of hypertension 05/09/2018 Review of Systems Review of Systems not supported for this document typeNo Review of Systems Recorded Mental Status Mental Status not supported for this document type Description Cognitive functioning was normal Oriented to time, place, and person Thought processes were not impaired The thought content revealed no impairme nt Functional Status Functional Status not supported for this document typeNo Functional Status Recorded Physical Exam Physical Exam not supported for this document typeNo Physical Exam Recorded Immunizations Includes: Immunizations in patient's chart Vaccine Dose # Date Site Reaction(s) Status Source Boostrix 1 07/11/2013 Left Arm Complete (Administered) [facility] Influenza 1 03/25/2008 Left Arm Complete (Administered) [facility] Influenza 2 03/02/2011 Left Arm Complete (Administered) [facility] Influenza 3 05/09/2018 Complete (Refused) [facility] are Allergies Includes: Active, inactive, and resolved AllergiesNo Known Allergies Encounters Includes: Encounters from 06/05/2019 through 06/05/2020 Encounter Provider Location Date Check-In Time Check-Out Time D iagnosis Primary Care Telehealth FaceTime Gina Gray NP [facility] 06/03/2020 05/20/2020 3:40PM 4:07PM Conjunctivitis - Lef t Eye, Hypertension (Systemic), Overweight, Nicotine Dependence [Patient Encounter] Gina Gray NP 05/23/20202020 2:00PM 05/21/2020 11:59PM Acute Follow-up Telehealth Gina Gray NP [facility] 05/20/2020 1:30PM 2:02PM Assessment of Serum Prostate -specific Antigen (Psa) Elevated, Assessment of Nonspecific Abnormal Results of Function Studies Liver AHR Gina Gray NP [facility] 05/20/2020 7:54AM 9: 25AM Overweight, Visit For: Routine Adult H&p with Abnormal Findings, Hyperlipidemia, Nicotine Dependence, Anxiety Disorder Nos, Hypertension (Systemic), Dermatitis, Conjunctivitis - Left Eye Chart Prep Bonita Alvarado RN 04/24/2020 05/28/2019 10:22AM 11:59PM Chart Update Gina Gray NP 01/23/2020 05/28/2019 12 :58PM 05/28/2019 11:59PM Insurance Includes: Active Insurance Policies Plan Name Member ID Group # Subscriber Relationship Effective Da nitza 1 - [employer] [phone] [id number] Jonathan Kaminski Self 08/01/2015 - Unknown Advance Directives Includes: Current Advance Directives Directive Pat Aware Third Constitution Party Effective Date Reviewed Status RHIO Yes 03/07/2012 Current and Ve rified Note: 03/07/12 Ebola Screening Performed Yes 05/28/2019 Current and Verified Note: Within the last month, have you traveled outside of the [place]? - NO packet given Pt Bill of Rights, Priv Prac, Ad Dir Yes 05/20/2020 Current and Verified Note: Pt declined AD packet Health Concerns Includes: Active Health Concerns Anxiety Disorder Nos Onset 07/15/2009 Emphysema, unspecified Onset 01/23/2020 Hyperlipidemia Onset 03/04/2010 Hypertension (Systemic) Onset 05/20/2020 Nicotine Dependence Onset 03/02/2011 Overweight Onset 10/28/2016 Preventive Medicine Services Onset 05/15/2019 Vitamin D Deficiency Onset 03/09/2011 Goals Includes: Active Goals Goal for Nicotine Use: smoking cessation Reduce risk of heart attacks and strokes and cancers Added 03/02/2011 by Provider Health Concern: Nicotine Dependence Maintain Vitamin D level above 30 Added 03/09/2011 by Provider Health Concern: Vitamin D Deficiency Preventative Medicine Services: Added 05/15/2019 by Provider Health Concern: Preventive Medicine Services Goal for Mental Health: control of sympt oms Added 05/16/2019 by Provider Health Concern: Anxiety Disorder Nos Goal for Cardiovascular Health:Total cho lesterol < 200Triglycerides < 150LDL <130BP less than 140/90 Added 05/16/2019 by Provider Health Concerns: Hyperlipidemia, Hypertension (Systemic) Goal for Weight loss: BMI less than 25 o r 5-10 % weight loss Added 05/16/2019 by Provider Health Concern: Overweight Goal for Pulmonary health: Maintain curr ent pulmonary functionAvoid exacerbations.Symptom control Added 05/20/2020 by Provider Health Concern: Emphysema, unspecified Interventions Includes: Interventions for active Goals Patient is aware of the adverse effects of smoking. Discussed the benefits of smoking cessation.Continues to smoke daily against medical advice.Continue to cut down on the amount of cigarettes smoked daily.Continue Nicotine lozenges as directed. Added 05/16/2019 Goal: Goal for Nicotine Use: smoking cessationReduce risk of heart attacks and strokes and cancers When the level of Vitamin D in the body is too low it can cause the bones to become thin, brittle or misshapen. Vitamin D also can play a role in insulin resistance, high blood pressure and immune function.Adults get most of their Vitamin D through their diet and the exposure to sunlight. The recommended amount of Vitamin D per day for adults is 600 IU. Added 05/16/2019 Goal: Maintain Vitamin D level above 30 Colon Cancer Screening beginning age 50; Last Colonoscopy: 03/07/19Due for next colonoscopy 03/23Lung Cancer Screening; 01/15/2020.AAA screening; Will order when he turns 63Prostate Cancer Screening: PSA-0.81 on 05/15/2019Vaccines:--Influenza-Declines--Pneumovax 23-future--[id number]--Iqww-9/12/14 Added 05/15/2019 Goal: Preventative Medicine Services: Dentist-Dr. CarnesOptometrist- Cayetano Jo Added 05/16/2019 Goal: Preventative Medicine Services: --Take a time out: practice yoga, listen to music, meditate, get a massage, or learn relaxation techniques. Stepping back from the problem helps clear your head.--Eat well balanced meals. Do not skip any meals. Do keep healthful energy-boosting snacks on hand.--Limit alcohol and caffeine, both of which can aggravate anxiety and trigger panic attacks.--Get enough sleep. When stressed your body needs additional sleep and rest.--Exercise daily to help you feel good and maintain your health.--Take deep breaths. Inhale and exhale slowly.--Count to 10 slowly. Repeat and count to 20 if necessary.--Welcome humor. A good laugh goes a long way.--Maintain a positive attitude. Make an effort to replace negative thoughts with positive ones.--Learn what triggers your anxiety. Is it work, family, school, or something else you can identify? Write in a journal when you're feeling stressed or anxious, and look for a pattern.--Talk to someone. Tell friends/family you're feeling overwhelmed and let them know how they can help you. Talk to a provider, therapist, or counselor for professional help. to a provider, therapist, or counselor for professional help. Added 05/16/2019 Goal: Goal for Mental Health: control of symptoms Continue with lifestyle modificationsDie t: Low fat, low cholesterol diet low sodium diet and reduce caffeineDrink 48-64 ounces of water daily.Nicotine: Avoid nicotine / smokingExercise 4-5 times per week for at least 20 minutes each day.To lower your cholesterol:-Avoiding red meat, butter, fried foods, cheese, and other foods that have a lot of saturated fat-Losing weight (if you are overweight)-Being more active Discussed carli factors for cardiovascular disease such as Male of age 53, smoker, family history of HTN, overweight.He will monitor and record blood pressure and heart rate at least twice a week and bring to your next appointment.Call clinic for blood pressure greater than 160/90.If BP remains elevated, he agrees to start anti-hypertensive agent. Added 05/16/2019 Goal: Goal for Cardiovascular Health:Total cholesterol < 200Triglycerides < 150LDL <130BP less than 140/90 --Work on weight loss by increasing phys ical activity to include at least 20-30 minutes daily. --Increase fresh fruits and vegetables while decreasing portion sizes. --Increase lean meats & proteins. --Exchange white breads and foods for whole grains. --Decreasing your weight can help protect against and/or improve other health conditions such as Diabetes, Hypertension and Hyperlipidemia. Added 05/16/2019 Goal: Goal for Weight loss: BMI less than 25 or 5-10 % weight loss Specialty Services: Continue to follow up with Pulmonary as scheduled.Quit smokingAvoid any known triggers that cause exacerbations. Added 05/20/2020 Goal: Goal for Pulmonary health: Maintain current pulmonary functionAvoid exacerbations.Symptom control Evaluations & Outcomes Includes: Evaluations & Outcomes for active Goals Goal converted from Patient Problem data . Goal is currently In Progress. Added 03/02/2011 - In Progress Goal: Goal for Nicotine Use: smoking cessationReduce risk of heart attacks and strokes and cancers Goal converted from Patient Problem data . Goal is currently In Progress. Added 03/09/2011 - In Progress Goal: Maintain Vitamin D level above 30
--- OUTSIDE RECORDS SUMMARY | 2020-06-24 22:35 | CCD ---
Author Author [facility] Organization [facility] Address Unknown Phone Unavailable Care Team Providers Care Therapist Occupational Name Role Phone Shaben, E Mariluz BUSINESS ANALYST [employer] Unavailable Unavailable Shaben, E Mariluz BUSINESS ANALYST [employer] Unavailable Unavailable Shaben, E Mariluz BUSINESS ANALYST [employer] Unavailable Unavailable Shaben, E Mariluz BUSINESS ANALYST [employer] Unavailable Unavailable Shaben, E Mariluz BUSINESS ANALYST [employer] Unavailable Unavailable Shaben, E Mariluz BUSINESS ANALYST [employer] Unavailable Unavailable Shaben, E Mariluz BUSINESS ANALYST [employer] Unavailable Unavailable Shaben, E Mariluz BUSINESS ANALYST [employer] Unavailable Unavailable Shaben, E Mariluz BUSINESS ANALYST [employer] Unavailable Unavailable Shaben, E Mariluz BUSINESS ANALYST [employer] Unavailable Unavailable Shaben, E Mariluz BUSINESS ANALYST [employer] Unavailable Unavailable Shaben, E Mariluz BUSINESS ANALYST [employer] Unavailable Unavailable Shaben, E Mariluz BUSINESS ANALYST [employer] Unavailable Unavailable Shaben, E Mariluz BUSINESS ANALYST [employer] Unavailable Unavailable Shaben, E Mariluz BUSINESS ANALYST [employer] Unavailable Unavailable Shaben, E Mariluz BUSINESS ANALYST [employer] Unavailable Unavailable Shaben, E Mariluz BUSINESS ANALYST [employer] Unavailable Unavailable Shaben, E Mariluz BUSINESS ANALYST [employer] Unavailable Unavailable Shaben, E Mariluz BUSINESS ANALYST [employer] Unavailable Unavailable Shaben, E Mariluz BUSINESS ANALYST [employer] Unavailable Unavailable Shaben, E Mariluz BUSINESS ANALYST [employer] Unavailable Unavailable Shaben, E Mariluz BUSINESS ANALYST [employer] Unavailable Unavailable Shaben, E Mariluz BUSINESS ANALYST [employer] Unavailable Unavailable Shaben, E Mariluz BUSINESS ANALYST [employer] Unavailable Unavailable Trang Lewis Unavailable Unavailable Kovall, L Delilah PA Unavailable Unavailable Kovall, L Delilah PA Unavailable Unavailable Kovall, L Delilah PA Unavailable Unavailable Kovall, L Delilah PA Unavailable Unavailable Kovall, L Delilah PA Unavailable Unavailable Kovall, L Delilah PA Unavailable Unavailable Kovall, L Delilah PA Unavailable Unavailable Christiano LUNA, Bonita Unavailable [phone] Shaben, E Mariluz BUSINESS ANALYST [employer] Unavailable Unavailable Shaben, E Mariluz BUSINESS ANALYST [employer] Unavailable Unavailable Shaben, E Mariluz BUSINESS ANALYST [employer] Unavailable Unavailable Shaben, E Mariluz BUSINESS ANALYST [employer] Unavailable Unavailable Shaben, E Mariluz BUSINESS ANALYST [employer] Unavailable Unavailable Shaben, E Mariluz BUSINESS ANALYST [employer] Unavailable Unavailable Shaben, E Mariluz BUSINESS ANALYST [employer] Unavailable Unavailable Shaben, E Mariluz BUSINESS ANALYST [employer] Unavailable Unavailable Shaben, E Mariluz BUSINESS ANALYST [employer] Unavailable Unavailable Shaben, E Mariluz BUSINESS ANALYST [employer] Unavailable Unavailable Shaben, E Mariluz BUSINESS ANALYST [employer] Unavailable Unavailable Shaben, E Mariluz BUSINESS ANALYST [employer] Unavailable Unavailable Shaben, E Mariluz BUSINESS ANALYST [employer] Unavailable Unavailable Shaben, E Mariluz BUSINESS ANALYST [employer] Unavailable Unavailable Shaben, E Mariluz BUSINESS ANALYST [employer] Unavailable Unavailable Shaben, E Mariluz BUSINESS ANALYST [employer] Unavailable Unavailable Shaben, E Mariluz BUSINESS ANALYST [employer] Unavailable Unavailable Shaben, E Mariluz BUSINESS ANALYST [employer] Unavailable Unavailable Shaben, E Mariluz BUSINESS ANALYST [employer] Unavailable Unavailable Shaben, E Mariluz BUSINESS ANALYST [employer] Unavailable Unavailable Shaben, E Mariluz BUSINESS ANALYST [employer] Unavailable Unavailable Shaben, E Mariluz BUSINESS ANALYST [employer] Unavailable Unavailable Shaben, E Mariluz BUSINESS ANALYST [employer] Unavailable Unavailable Shaben, E Mariluz BUSINESS ANALYST [employer] Unavailable Unavailable NISHANT, L DELILAH JAVA SOFTWARE ENGINEER Unavailable Unavailable NISHANT, L DELILAH JAVA SOFTWARE ENGINEER Unavailable Unavailable NISHANT, L DELILAH JAVA SOFTWARE ENGINEER Unavailable Unavailable NISHANT, L DELILAH JAVA SOFTWARE ENGINEER Unavailable Unavailable NISHANT, L DELILAH JAVA SOFTWARE ENGINEER Unavailable Unavailable NISHANT, L DELILAH JAVA SOFTWARE ENGINEER Unavailable Unavailable NISHANT, L DELILAH JAVA SOFTWARE ENGINEER Unavailable Unavailable NISHANT, L DELILAH JAVA SOFTWARE ENGINEER Unavailable Unavailable NISHANT, L DELILAH JAVA SOFTWARE ENGINEER Unavailable Unavailable NISHANT, L DELILAH JAVA SOFTWARE ENGINEER Unavailable Unavailable NISHANT, L DELILAH JAVA SOFTWARE ENGINEER Unavailable Unavailable NISHANT, L DELILAH JAVA SOFTWARE ENGINEER Unavailable Unavailable NISHANT, L DELILAH JAVA SOFTWARE ENGINEER Unavailable Unavailable NISHANT, L DELILAH JAVA SOFTWARE ENGINEER Unavailable Unavailable NISHANT, L DELILAH JAVA SOFTWARE ENGINEER Unavailable Unavailable NISHANT, L DELILAH JAVA SOFTWARE ENGINEER Unavailable Unavailable NISHANT, L DELILAH JAVA SOFTWARE ENGINEER Unavailable Unavailable NISHANT, L DELILAH JAVA SOFTWARE ENGINEER Unavailable Unavailable NISHANT, L DELILAH JAVA SOFTWARE ENGINEER Unavailable Unavailable NISHANT, L DELILAH JAVA SOFTWARE ENGINEER Unavailable Unavailable NISHANT, L DELILAH JAVA SOFTWARE ENGINEER Unavailable Unavailable NISHANT, L DELILAH JAVA SOFTWARE ENGINEER Unavailable Unavailable NISHANT, L DELILAH JAVA SOFTWARE ENGINEER Unavailable Unavailable NISHANT, L DELILAH JAVA SOFTWARE ENGINEER Unavailable Unavailable NISHANT, L DELILAH JAVA SOFTWARE ENGINEER Unavailable Unavailable NISHANT, L DELILAH JAVA SOFTWARE ENGINEER Unavailable Unavailable NISHANT, L DELILAH JAVA SOFTWARE ENGINEER Unavailable Unavailable NISHANT, L DELILAH JAVA SOFTWARE ENGINEER Unavailable Unavailable NISHANT, L DELILAH JAVA SOFTWARE ENGINEER Unavailable Unavailable NISHANT, L DELILAH JAVA SOFTWARE ENGINEER Unavailable Unavailable NISHANT, L DELILAH JAVA SOFTWARE ENGINEER Unavailable Unavailable NISHANT, L DELILAH JAVA SOFTWARE ENGINEER Unavailable Unavailable NISHANT, L DELILAH JAVA SOFTWARE ENGINEER Unavailable Unavailable NISHANT, L DELILAH JAVA SOFTWARE ENGINEER Unavailable Unavailable NISHANT, L DELILAH JAVA SOFTWARE ENGINEER Unavailable Unavailable NISHANT, L DELILAH JAVA SOFTWARE ENGINEER Unavailable Unavailable NISHANT, L DELILAH JAVA SOFTWARE ENGINEER Unavailable Unavailable NISHANT, L DELILAH JAVA SOFTWARE ENGINEER Unavailable Unavailable NISHANT, L DELILAH JAVA SOFTWARE ENGINEER Unavailable Unavailable NISHANT, L DELILAH JAVA SOFTWARE ENGINEER Unavailable Unavailable NISHANT, L DELILAH JAVA SOFTWARE ENGINEER Unavailable Unavailable NISHANT, L DELILAH JAVA SOFTWARE ENGINEER Unavailable Unavailable NISHANT, L DELILAH JAVA SOFTWARE ENGINEER Unavailable Unavailable NISHANT, L DELILAH JAVA SOFTWARE ENGINEER Unavailable Unavailable NISHANT, L DELILAH JAVA SOFTWARE ENGINEER Unavailable Unavailable NISHANT, L DELILAH JAVA SOFTWARE ENGINEER Unavailable Unavailable NISHANT, L DELILAH JAVA SOFTWARE ENGINEER Unavailable Unavailable NISHANT, L DELILAH JAVA SOFTWARE ENGINEER Unavailable Unavailable NISHANT, L DELILAH JAVA SOFTWARE ENGINEER Unavailable Unavailable NISHANT, L DELILAH JAVA SOFTWARE ENGINEER Unavailable Unavailable NISHANT, L DELILAH JAVA SOFTWARE ENGINEER Unavailable Unavailable NISHANT, L DELILAH JAVA SOFTWARE ENGINEER Unavailable Unavailable NISHANT, L DELILAH JAVA SOFTWARE ENGINEER Unavailable Unavailable NISHANT, L DELILAH JAVA SOFTWARE ENGINEER Unavailable Unavailable NISHANT, L DELILAH JAVA SOFTWARE ENGINEER Unavailable Unavailable NISHANT, L DELILAH JAVA SOFTWARE ENGINEER Unavailable Unavailable NISHANT, L DELILAH JAVA SOFTWARE ENGINEER Unavailable Unavailable NISHANT, L DELILAH JAVA SOFTWARE ENGINEER Unavailable Unavailable NISHANT, L DELILAH JAVA SOFTWARE ENGINEER Unavailable Unavailable NISHANT, L DELILAH JAVA SOFTWARE ENGINEER Unavailable Unavailable NISHANT, L DELILAH JAVA SOFTWARE ENGINEER Unavailable Unavailable NISHANT, L DELILAH JAVA SOFTWARE ENGINEER Unavailable Unavailable NISHANT, L DELILAH JAVA SOFTWARE ENGINEER Unavailable Unavailable NISHANT, L DELILAH JAVA SOFTWARE ENGINEER Unavailable Unavailable NISHANT, L DELILAH JAVA SOFTWARE ENGINEER Unavailable Unavailable NISHANT, L DELILAH JAVA SOFTWARE ENGINEER Unavailable Unavailable NISHANT, L DELILAH JAVA SOFTWARE ENGINEER Unavailable Unavailable NISHANT, L DELILAH JAVA SOFTWARE ENGINEER Unavailable Unavailable NISHANT, L DELILAH JAVA SOFTWARE ENGINEER Unavailable Unavailable NISHANT, L DELILAH JAVA SOFTWARE ENGINEER Unavailable Unavailable Santana Torres MD Unavailable Unavailable Santana Torres MD Unavailable Unavailable TorresSantana MD Unavailable Unavailable TorresSantana MD Unavailable Unavailable TorresSantana MD Unavailable Unavailable Santana Torres MD Unavailable Unavailable Santana Torres MD Unavailable Unavailable Santana Torres MD Unavailable Unavailable Santana Torres MD Unavailable Unavailable Santana Torres MD Unavailable Unavailable TorresSantana MD Unavailable Unavailable TorresSantana MD Unavailable Unavailable TorresSantana MD Unavailable Unavailable TorresSantana MD Unavailable Unavailable TorresSantana MD Unavailable Unavailable TorresSantana MD Unavailable Unavailable TorresSantana MD Unavailable Unavailable Santana Torres MD Unavailable Unavailable Santana Torres MD Unavailable Unavailable TorresSantana MD Unavailable Unavailable TorresSantana MD Unavailable Unavailable TorresSantana MD Unavailable Unavailable Santana Torres MD Unavailable Unavailable Santana Torres MD Unavailable Unavailable Santana Torres MD Unavailable Unavailable Santana Torres MD Unavailable Unavailable Santana Torres MD Unavailable Unavailable Santana Torres MD Unavailable Unavailable Santana Torres MD Unavailable Unavailable Santana Torres MD Unavailable Unavailable Santana Torres MD Unavailable Unavailable Santana Torres MD Unavailable Unavailable Santana Torres MD Unavailable Unavailable Santana Torres MD Unavailable Unavailable Santana Torres MD Unavailable Unavailable Santana Torres MD Unavailable Unavailable Santana Torres MD Unavailable Unavailable Santana Torres MD Unavailable Unavailable Santana Torres MD Unavailable Unavailable Santana Torres MD Unavailable Unavailable Santana Torres MD Unavailable Unavailable Santana Torres MD Unavailable Unavailable Santana Torres MD Unavailable Unavailable Santana Torres MD Unavailable Unavailable Santana Torres MD Unavailable Unavailable Santana Torres MD Unavailable Unavailable Santana Torres MD Unavailable Unavailable Santana Torres MD Unavailable Unavailable Santana Torres MD Unavailable Unavailable Santana Torres MD Unavailable Unavailable Santana Torres MD Unavailable Unavailable Santana Torres MD Unavailable Unavailable Santana Torres MD Unavailable Unavailable Santana Torres MD Unavailable Unavailable Santana Torres MD Unavailable Unavailable Santana Torres MD Unavailable Unavailable Santana oTrres MD Unavailable Unavailable Santana Torres MD Unavailable Unavailable Santana Torres MD Unavailable Unavailable Santana Torres MD Unavailable Unavailable Santana Torres MD Unavailable Unavailable Santana Torres MD Unavailable Unavailable Santana Torrse MD Unavailable Unavailable Santana Torres MD Unavailable Unavailable Santana Torres MD Unavailable Unavailable Santana Torres MD Unavailable Unavailable Santana Torres MD Unavailable Unavailable Torres, Santana Pepe MD Unavailable Unavailable Torres, Santana Cantu MD Unavailable Unavailable Torres, Santana Pepe MD Unavailable Unavailable Torres, Santana Pepe MD Unavailable Unavailable Torres, Santana Pepe MD Unavailable Unavailable Torres, Santana Ppee MD Unavailable Unavailable Torres, Santana Pepe MD Unavailable Unavailable Torres, Santana Pepe MD Unavailable Unavailable Torres, Santana Pepe MD Unavailable Unavailable Torres, Santana Pepe MD Unavailable Unavailable Torres, Santana Pepe MD Unavailable Unavailable Torres, Santana Pepe MD Unavailable Unavailable Torres, Santana Pepe MD Unavailable Unavailable Torres, Santaan Pepe MD Unavailable Unavailable Torres, Santana Pepe MD Unavailable Unavailable Torres, Santana Pepe MD Unavailable Unavailable Torres, Santana Pepe MD Unavailable Unavailable Torres, Santana Pepe MD Unavailable Unavailable Torres, Santana Pepe MD Unavailable Unavailable Torres, Santana Pepe MD Unavailable Unavailable Torres, Santana Pepe MD Unavailable Unavailable Torres, Santaan Pepe MD Unavailable Unavailable Torres, Santana Pepe MD Unavailable Unavailable Torres, Santana Pepe MD Unavailable Unavailable Torres, Santana Pepe MD Unavailable Unavailable Torres, Santana Pepe MD Unavailable Unavailable Torres, Santana Pepe MD Unavailable Unavailable Torres, Santana Pepe MD Unavailable Unavailable Torres, Santana Pepe MD Unavailable Unavailable Torres, Santana Pepe MD Unavailable Unavailable Torres, Santana Pepe MD Unavailable Unavailable Torres, Santana Cantu MD Unavailable Unavailable Torres, Santana Pepe MD Unavailable Unavailable Torres, Santana Pepe MD Unavailable Unavailable Torres, Santana Pepe MD Unavailable Unavailable Re-disclosure Warning The records that you are about to access may contain information from federally-assisted alcohol or drug abuse programs. If such information is present, then the following federally mandated warning applies: This information has been disclosed to you from records protected by federal confidentiality rules (42 CFR part 2). The federal rules prohibit you from making any further disclosure of this information unless further disclosure is expressly permitted by the written consent of the person to whom it pertains or as otherwise permitted by 42 CFR part 2. A general authorization for the release of medical or other information is NOT sufficient for this purpose. The Federal rules restrict any use of the information to criminally investigate or prosecute any alcohol or drug abuse patient.The records that you are about to access may contain highly sensitive health information, the redisclosure of which is protected by Article 27-F of the [place] State Public Health law. If you continue you may have access to information: Regarding HIV / AIDS; Provided by facilities licensed or operated by the [facility] Office of Mental Health; or Provided by the [facility] Office for People With Developmental Disabilities. If such information is present, then the following [facility] mandated warning applies: This information has been disclosed to you from confidential records which are protected by state law. State law prohibits you from making any further disclosure of this information without the specific written consent of the person to whom it pertains, or as otherwise permitted by law. Any unauthorized further disclosure in violation of state law may result in a fine or mcc sentence or both. A general authorization for the release of medical or other information is NOT sufficient authorization for further disc losure. Advance Directives Directive Description Business Planning Manager Automobile Relocation Engineer Status Observation Descr iption Data Source(s) packet given Pt Bill of Rights, Priv Prac, Ad Dir completed packet given Pt Bill of Rights, Priv Prac, Ad Dir [facility] Note: Pt declined AD packet Ebola Screening Performed completed Ebol a Screening Performed [facility] ([facility]) Note: Within the last month, have you tr aveled outside of the [place]? -NO packet given Pt Bill of Rights, Priv Prac, Ad Dir completed packet given Pt Bill of Rights, Priv Prac, Ad Dir [facility] ([facility]) Note: Pt declined AD packet Ebola Screening Performed completed Ebol a Screening Performed [facility] ([facility]) Note: Within the last month, have you tr [place]veled outside of the [place]? -NO Allergies and Adverse Reactions Type Description Substance Reaction Status Data Source(s ) Allergy to substance No Known Allergies No known allergies (situation ) [facility] ([facility]) Allergy to substance No Known Allergies No known allergies (situation ) [facility] ([facility]) Allergy to substance No Known Allergies No known allergies (situation ) [facility] ([facility]) Family History Family Member Name Family Member Gender Family Member Status Date o f Status Description Data Source(s) Unknown Unknown Problem [facility] ([facility]) Encounters Encounter Providers Location Date Indications Data Source(s ) Outpatient<td ID="encounterTypeDescripti onID0">Primary Care Telehealth FaceTime</td><td>Delilah Dillard NP</td><td>[facility]</td><td>06/03/2020</td><td>05/20/2020 3:40PM</td><td>4:07PM</td> <td><content ID="encounterDiagnosisID0-0">Conjunctivitis - Left Eye</content>, <content ID="encounterDiagnosisID0-1">Hypertension (Systemic)</content>, <content ID="encounterDiagnosisID0-2">Overweight</content>, <content ID="encounterDiagnosisID0-3">Nicotine Dependence</content></td> Attender: DELILAH DILLARD NP [facility] 05/20/2020 03:40:00 PM EST - 06/03/2020 04:07:48 PM EST Conjunctivitis - Left EyeHypertension (Systemic)OverweightNicotine Dependence [facility] ([facility]) Conjunctivitis - Left Eye Hypertension (Systemic) Overweight Nicotine Dependence Unknown<td ID="encounterTypeDescriptionI D1">[Patient Encounter]</td><td>Delilah Dillard NP</td><td></td><td>05/23/2020</td><td>05/20/2020 2:00PM</td><td>05/21/2020 11:59PM</td><td></td> Attender: DELILAH DILLARD NP 05/20/2020 02:00:00 PM EST - 05/21/2020 11:59:00 PM EST [place] [facility] Outpatient<td ID="encounterTypeDescripti onID2">Acute Follow-up Telehealth</td><td>Delilah Dillard NP</td><td>[facility]</td><td>05/21/2020</td><td>05/20/2020 1:30PM</td><td>2:02PM</td><td> <content ID="encounterDiagnosisID2-0">Assessment of Serum Prostate-specific Antigen (Psa) Elevated</content>, <content ID="encounterDiagnosisID2-1"> Assessment of Nonspecific Abnormal Results of Function Studies Liver</content></td> Attender: DELILAH DILLARD NP [facility] 05/20/2020 01:30:00 PM EST - 05/21/2020 02:02:08 PM EST Assessment of Nonspecific Abnormal Results of Function Studies LiverAssessment of Serum Prostate-specific Antigen (Psa) Elevated [facility] ([facility]) Assessment of Nonspecific Abnormal Resul ts of Function Studies Liver Assessment of Serum Prostate-specific An tigen (Psa) Elevated Outpatient Attender: DELILAH DILLARD NP 05/20/2020 09:34:0 0 AM EST lab [facility] lab Outpatient<td ID="encounterTypeDescripti onID3">[facility]</td><td>Delilah Dillard NP</td><td>[facility]</td><td>05/20/2020</td><td>7:54AM</td><td>9:25AM</td><td><content ID="encounterDiagnosisID3-0">Overweight</content>, <content ID="encounterDiagnosisID3-1">Visit For: Routine Adult H&p with Abnormal Findings</content>, <content ID="encounterDiagnosisID3- 2">Hyperlipidemia</content>, <content ID="encounterDiagnosisID3-3">Nicotine Dependence</content>, <content ID="encounterDiagnosisID3-4">Anxiety Disorder Nos</content>, <content ID="encounterDiagnosisID3-5">Hypertension (Systemic)</content>, <content ID="encounterDiagnosisID3-6">Dermatitis</content> , <content ID="encounterDiagnosisID3-7">Conjunctivitis - Left Eye</content></td> Attender: DELILAH DILLARD NP [facility] 05/20/2020 07:54:00 AM EST - 05/20/2020 09:25:02 AM EST Conjunctivitis - Left EyeDermatitisHyper tension (Systemic)Visit For: Routine Adult H&p with Abnormal FindingsOverweightNicotine DependenceHyperlipidemiaAnxiety Disorder Nos [facility] ([facility]) Conjunctivitis - Left Eye Dermatitis Hypertension (Systemic) Visit For: Routine Adult H&p with Abnorm al Findings Overweight Nicotine Dependence Hyperlipidemia Anxiety Disorder Nos Outpatient Attender: Pepe Pérez/Amy/William/Troy fischer 10/02/2019 01:45:00 PM EDT [facility] ([facility] ) Outpatient Referrer: Pepe Torres MD 09/14/2019 09:13:0 0 AM EDT [facility] Outpatient Referrer: Pepe Torres MD 09/14/2019 09:12:0 0 AM EDT [facility] Outpatient Referrer: Pepe Torres MD 09/07/2019 08:57:0 0 AM EDT [facility] Outpatient Referrer: Pepe Torres MD 08/13/2019 01:54:0 0 PM EDT [facility] Outpatient Attender: Pepe Pérez/Amy/William/R eindl 07/05/2019 02:00:00 PM EST [facility] ([facility] Outpatient Attender: Pepe Pérez/Amy/William/R eindl 06/11/2019 09:00:00 AM EST [facility] ([facility] Outpatient Referrer: Mariluz BHATT 06/07/2019 09:35:00 A M EST [facility] Outpatient Referrer: Mariluz Patel [facility] 06/07/2019 08:56:00 A M EST [facility] Outpatient<td ID="encounterTypeDescripti onID0">Follow-up Labs</td><td>Delilah Dillard NP</td><td>[facility]</td><td>05/28/2019</td><td><content ID="encounterDiagnosisID0-0">Assessment of Solitary Pulmonary Nodule</content></td> Attender: DELILAH DILLARD NP [facility] 0 04:18:00 PM EST - 05/28/2019 04:49:11 PM EST Assessment of Solitary Pulmonary Nodule [place] ([facility]) Assessment of Solitary Pulmonary Nodule Unknown<td ID="encounterTypeDescriptionI D5">Chart Update</td><td>Delilah Dillard NP</td><td></td><td>01/23/2020</td><td>05/28/2019 12:58PM</td><td>05/28/2019 11:59PM</td><td></td> Attender: DELILAH DILLARD NP 05/28/2019 12:58:00 PM EST - 05/28/2019 11:59:00 PM EST [facility] ([facility]) Unknown<td ID="encounterTypeDescriptionI D4">Chart Prep</td><td>Bonita Alvarado RN</td><td></td><td>04/24/2020</td><td>05/28/2019 10:22AM</td><td>05/28/2019 11:59PM</td><td></td> Attender: Bonita Alvarado RN 05/28/2019 10:22:00 AM EST - 05/28/2019 11:59:00 PM EST [facility] ([facility]) Unknown<td ID="encounterTypeDescriptionI D1">Referral Order</td><td>Mariluz Patel JAVA SOFTWARE ENGINEER</td><td></td><td>05/25/2019</td><td></td> Attender: Mariluz FRANZP 05/25/2019 02:30:00 PM EST - 05/25/2019 11:59:00 PM EST [facility] ([facility]) Outpatient Referrer: DELILAH DILLARD NP 05/24/2019 01:02:0 0 PM EST [facility] Outpatient Referrer: DELILAH DILLARD NP 05/24/2019 01:01:0 0 PM EST [facility] Outpatient Referrer: DELILAH DILLARD NP 05/24/2019 11:19:0 0 AM EST [facility] Outpatient Referrer: DELILAH DILLARD NP 05/22/2019 11:10:0 0 AM EST [facility] Outpatient Referrer: DELILAH DILLARD NP 05/17/2019 11:15:0 0 AM EST [facility] Outpatient Referrer: DELILAH DILLARD NP 05/15/2019 02:08:0 0 PM EST [facility] Outpatient Referrer: DELILAH DILLARD NP 05/15/2019 01:45:0 0 PM EST [facility] Outpatient Referrer: Delilah PALACIOS 05/15/2019 01:44:00 PM EST [facility] Outpatient Attender: DELILAH DILLARD NP 05/15/2019 08:39:0 0 AM EST Lab [facility] Outpatient<td ID="encounterTypeDescripti onID2">Establish Care</td><td>Delilah Dillard NP</td><td>[facility]</td><td>05/15/2019</td><td><content ID="encounterDiagnosisID2-0">Hyperlipidemia</content>, <content ID="encounterDiagnosisID2-1">Vitamin D Deficiency</content>, <content ID="encounterDiagnosisID2-2">Anxiety Disorder Nos</content>, <content ID="encounterDiagnosisID2-3">Nicotine Dependence</content>, <content ID="encounterDiagnosisID2-4">Overweight</content>, <content ID="encounterDiagnosisID2-5">Visit For: Routine Adult H&p Without Abnormal Findings</content></td> Attender: DELILAH DILLARD NP [facility] 020 07:56:00 AM EST - 05/15/2019 08:34:57 AM EST Visit For: Routine Adult H&p Without Abnormal FindingsVisit For: Routine Adult H&p Without Abnormal FindingsOverweightOverweightVitamin D DeficiencyVitamin D DeficiencyNicotine DependenceNicotine DependenceHyperlipidemiaHyperlipidemiaAnxiety Disorder NosAnxiety Disorder Nos [place] [facility] [place] Visit For: Routine Adult H&p Without Abn ormal Findings Visit For: Routine Adult H&p Without Abn ormal Findings Overweight Overweight Vitamin D Deficiency Vitamin D Deficiency Nicotine Dependence Nicotine Dependence Hyperlipidemia Hyperlipidemia Anxiety Disorder Nos Anxiety Disorder Nos Outpatient Referrer: Delilah PALACIOS 05/10/2019 03:54:00 PM EST [facility] Radiology Imaging Medications Medication Brand Name Start Date Product Form Dose Route Admi nistrative Instructions Pharmacy Instructions Status Indications Reaction Description Data Source(s) 0.3 % 06/04/2020 12:00:00 AM EST drops 5 INSTILL 2 DROPS IN EACH EYE FOUR TIMES A DAY INSTILL 2 DROPS IN EACH EYE FOUR TIMES A DAY SOLD: 06/05/2020 [facility] Gentamicin Sulfate (FDC) 3 MG/ML Ophthal mony Solution Gentamicin Sulfate 0.3% Ophthalmic Solution Gentamicin Sulfate 0.3% Ophthalmic Solution 06/03/2020 12:00:00 AM EST active gentamic in 3 MG/ML Ophthalmic [facility] PARoxetine HCl 20 MG Oral Tablet PARoxetine HCl 20 MG Oral T ablet 05/20/2020 12:00:00 AM EST 1 active paroxeti ne hydrochloride 20 MG Oral Tablet MICHAEL ([facility]) 5 mg/gram (0.5 %) 05/20/2020 12:00:00 AM EST ointment 3 APPLY 1/2 INCH RIBBON TO BOTH EYES FOUR TIMES A DAY FOR 7 DAYS APPLY 1/2 INCH RIBBON TO BOTH EYES FOUR TIMES A DAY FOR 7 DAYS SOLD: 05/26/2020 [facility] Erythromycin 0.005 MG/MG Ophthalmic Oint ment Erythromycin 5 MG/GM Ophthalmic Ointment Erythromycin 5 MG/GM Ophthalmic Ointment 05/20/2020 12:00:00 AM EST completed erythromycin 0.005 MG/ MG Ophthalmic Ointment [facility] PARoxetine HCl 20 MG Oral Tablet PARoxetine HCl 20 MG Oral T ablet 05/05/2020 12:00:00 AM EST 1 aborted paroxetine hydrochloride 20 MG Oral Tablet MICHAEL ([facility]) 75 mg 06/24/2019 12:00:00 AM EST capsule 10 TAKE ONE CAPSULE BY MOUTH EVERY 12 HOURS TAKE ONE CAPSULE BY MOUTH EVERY 12 HOURS SOLD: 06/24/2019 [facility] 30 ACTUAT umeclidinium 0.0625 MG/ACTUAT / vilanterol 0.025 MG/ACTUAT Dry Powder Inhaler [Anoro] Anoro Ellipta 62.5-25 MCG/INH Inhalation Aerosol Powder Breath Activated Anoro Ellipta 62.5-25 MCG/INH Inhalation Aerosol Powder Breath Activated 06/14/2019 12:00:00 AM EST 1 aborted 30 ACTUAT umeclidinium 0.0625 MG/ACTUAT / vilanterol 0.025 MG/ACTUAT Dry Powder Inhaler [Anoro] MICHAEL ([facility]) 62.5-25 mcg/actuation 06/11/2019 12:00:00 AM EST blister wit h device 180 INHALE ONE PUFF BY MOUTH EVERY DAY INHALE ONE PUFF BY MOUTH EVERY DAY SOLD: 06/13/2019 [facility] 30 ACTUAT umeclidinium 0.0625 MG/ACTUAT / vilanterol 0.025 MG/ACTUAT Dry Powder Inhaler [Anoro] Anoro Ellipta 06/11/2019 12:00:00 AM EST RESPIRA ANGELY completed MEDENT ([facility], ) Paroxetine 20 MG Oral Tablet [Paxil] Paxil 20 MG Oral Tablet Paxil 20 MG Oral Tablet 05/10/2019 12:00:00 AM EST 1 aborted paroxetine hydrochloride 20 MG Oral Tablet [Paxil] MICHAEL ([facility]) 500 mg 04/26/2019 12:00:00 AM EST tablet 20 TAKE ONE TABLET BY MOUTH TWICE A DAY WITH FOOD TAKE ONE TABLET BY MOUTH TWICE A DAY WITH FOOD SOLD: 019 [facility] 24 HR Nicotine 0.292 MG/HR Transdermal P atch Nicotine 7MG/24HR Transdermal Patch 24 Hour Nicotine 7MG/24HR Transdermal Patch 24 Hour 06/09/2018 12:00 :00 AM EST 1 aborted 24 HR nicotine 0 .292 MG/HR Transdermal System MICHAEL ([facility]) 24 HR Nicotine 0.583 MG/HR Transdermal P atch Nicotine 14MG/24HR Transdermal Patch 24 Hour Nicotine 14MG/24HR Transdermal Patch 24 Hour 9 12:00:00 AM EST 1 aborted 24 HR nicotine 0 .583 MG/HR Transdermal System MICHAEL ([facility]) Nicotine 4 MG Oral Lozenge Nicotine Polacrilex 4MG Angelica th/Throat Lozenge Nicotine Polacrilex 4MG Mouth/Throat Lozenge 05/09/2018 12:00:00 AM EST aborted nicotine 4 [address] Oral Lozenge [address] ([facility]) Paroxetine 20 MG Oral Tablet [Paxil] Paxil 20MG Oral T ablet Paxil 20MG Oral Tablet 05/09/2018 12:00:00 AM EST 1 aborted paroxetine hydrochloride 20 MG Oral Tablet [Paxil] MICHAEL ([facility]) Insurance Providers Payer name Policy type / Coverage type Policy ID Covered green party ID Covered green party's relationship to ayala Policy Ayala Plan Information [place] 302/307 [id number] SP [id number] EXCELLUS BCBS B [id number] S VYE [id number] BCBS [facility] Other 0 Self 0 SELF PAY BLUE CROSS [id number] SP [id number] 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 BCBS [facility] Other 0 Self 0 [facility]BS [facility] Other 0 Self 0 SELF PAY BLUE CROSS [id number] SP [id number] PACO CONSTRUCTION O [id number] S [id number] PACO CONSTRUCTION [id number] SP [id number] [facility]BS [facility] Other 0 Self 0 [place] PPO 302/307 [id number] SP [id number] BCBS/[employer]cell[employer] Commercial [id number] Self [id number] [id number] BCBS/[employer] Commercial [id number] Self VY [id number] BCBS [facility] Other 0 Self 0 SELF PAY BLUE CROSS [id number] SP [id number] [facility]BS [facility] Other 0 Self 0 [facility] Other 0 Self 0 ID IDENTIFICATION [id number] Other In surance [id number] [employer] [id number] Blue Cross/Shield [id number] BCBS [facility] Other 0 Self 0 BLUE CROSS [id number] SP [id number] BCBS [place] PPO 302/307 [id number] SP [id number] BLUE CROSS [id number] SP [id number] BLUE CROSS [id number] SP [id number] SELF PAY P S [id number] Problems, Conditions, and Diagnoses Code Display Name Description Problem Type Effective Dates Data Source(s) 27142102 Hypertensive disorder, systemic arterial (disorder) Hypertension (Systemic) Problem 05/20/2020 08:41:00 AM [place] ([employer] [facility]) 492.8 Emphysema, unspecified Emphysema, unspecified Problem 01/23/2020 12:00:00 [facility] 793.11 Solitary Pulmonary Nodule Solitary Pulmonary Nodule Fi nding 05/28/2019 12:00:00 AM [facility] [id number] Solitary Pulmonary Nodule Solitary Pulmonary Nodule Fi nding 05/28/2019 12:00:00 AM [facility] 00785 Preventive Medicine Services Preventive Medicine Servi wilman Problem 05/15/2019 12:00:00 AM EST MICHAEL ([facility]) 53224 Preventive Medicine Services Preventive Medicine Servi wilman Problem 05/15/2019 12:00:00 AM EST MICHAEL ([facility]) 52217 Preventive Medicine Services Preventive Medicine Servi wilman Problem 05/15/2019 12:00:00 AM EST MICHAEL ([facility]) E78.5 Hyperlipidemia, unspecified E78.5 - Hyperlipidemia, un specified Diagnosis 05/20/2020 09:34:00 AM [facility] Z12.5 Encounter for screening for malignant ne oplasm of prostate Z12.5 - Encounter for screening for malignant neoplasm of prostate Diagnosis 05/20/2020 09:34:00 AM [facility] E66.3 Overweight E66.3 - Overweight Diagnosis 05/20/2020 09:34: 00 AM [facility] L30.9 Dermatitis, unspecified L30.9 - Dermatitis, unspecifie d Diagnosis 05/20/2020 09:34:00 AM [facility] Surgeries/Procedures Procedure Description Date Indications Data Source(s) Operation on bone (procedure) History of orthopedic fields rgery surgical repair of right thumb after an injury 05/20/2020 12:00:00 AM EST [address] ([facility]) Insertion of pleural tube drain (procedure) History of chest tube insertion 05/02/2009 s/p spontaneous pneumothorax 05/20/2020 12:00:00 AM EST MICHAEL ([facility]) Spirometry 06/11/2019 12:00:00 AM EST M EDENT ([facility], ) Aerosol Or Vapor Inhalations 06/11/2019 12:00:00 AM ES T MEDENT ([facility], ) Results ID Date Data Source [id number] 05/20/2020 09:50:00 AM EST [facility] Name Value Range Interpretation Code Description Data Madelyn rce(s) Supporting Document(s) Reported Physicians See Note Reported Physicians MICHAEL ([facility]) Note: Reported Physicians:Ordering: Delilah Abbott LAttending: Delilah Dillard ID Date Data Source [id number] 05/20/2020 09:50:00 AM EST MICHAEL ([facility]) Name Value Range Interpretation Code Description Data Madelyn rce(s) Supporting Document(s) Thyrotropin [Units/volume] in Serum or Plasma by Detec tion limit <= 0.05 mIU/L 1.922 uIU/ML Normal TSH [place] ([facility]) Note: Patients should not be tested for 72 hours post fluorescein dye angiography. A false depression of result may occur.Responsible Observer: TSH TSH 300.5500 (A) ID Date Data Source [id number] 05/20/2020 09:50:00 AM EST [place] ([facility]) Name Value Range Interpretation Code Description Data Madelyn rce(s) Supporting Document(s) PSA SCREEN 7.92 NG/ML Above high normal PSA SCREEN [place] ([facility]) Note: Do not interpret PSA results as [...] for the PSA is determined using the [employer] that utilizes a direct chemiluminometric technology. The result is not interchangeble with different assay methods.Responsible Observer: PSA PROSTATE SPECIFIC ANTIGEN 300.5105 (A) ID Date Data Source [id number] 05/20/2020 09:50:00 AM EST [place] ([facility]) Name Value Range Interpretation Code Description Data Madelyn rce(s) Supporting Document(s) Deprecated Cholesterol.in LDL/Cholestero l.in HDL [Mass ratio] in Serum or Plasma 5.6 Above high normal CHOL/HDL RATIO [place] ([facility]) Note: Responsible Observer: CHOL/HDL RAT IO CHOL/HDL RATIO 300.4700 (A) Cholesterol crystals [Presence] in Stone by Infrared spectroscop y 201 MG/DL Above high normal CHOLESTEROL [place] ([facility]) Note: Responsible Observer: CHOL CHOLEST MARYANN 300.4350 (A) Cholesterol in LDL [Mass/volume] in Serum or Plasma by Direct as say 142 MG/DL Above high normal LDL CHOLESTEROL [place] ([facility]) Note: Responsible Observer: LDL LDL CHOL ESTEROL 300.4400 (A) Cholesterol in HDL [Mass/volume] in Serum or Plasma ultracen trifugate 36 MG/DL Below low normal HDL CHOLESTEROL [place] ([facility]) Note: Responsible Observer: HDL HDL CHOL ESTEROL 300.4600 (A) Triglyceride [Mass/volume] in Serum or Plasma 116 MG/DL N ormal TRIGLYCERIDES [place] ([facility]) Note: Responsible Observer: TRIG TRIGLYC ERIDES 300.4300 (A) ID Date Data Source [id number] 05/20/2020 09:50:00 AM EST [place] ([facility]) Name Value Range Interpretation Code Description Data Madelyn rce(s) Supporting Document(s) Albumin/Globulin [Mass Ratio] in Amniotic fluid 2.1 G/DL Normal ALB/GLOB RATIO [place] ([facility]) Note: Responsible Observer: A/G RATIO AL B/GLOB RATIO 300.4100 (A) Alkaline phosphatase isoenzyme [Units/volume] in Serum or Plasma 141 U/L Above high normal ALKALINE PHOSPHATASE [place] ([facility]) Note: Responsible Observer: ALK PHOS ALK LOREE PHOSPHATASE 300.3110 (A) Albumin [Mass/volume] in Synovial fluid 4.7 G/DL Normal ALBUMIN [place] ([facility]) Note: Responsible Observer: ALB ALBUMIN 300.3900 (A) Alanine aminotransferase [Enzymatic activity/volume] in Seru m or Plasma 25 U/L Normal ALT [place] ([facility]) Note: Responsible Observer: ALT/SGPT ALT 300.3100 (A) Aspartate aminotransferase [Enzymatic activity/volume] in Serum or Plasma 22 U/L Normal AST [place] ([facility]) Note: Responsible Observer: AST/SGOT AST 300.3050 (A) Urea nitrogen/Creatinine [Mass Ratio] in Serum or Plasma 15 Normal BUN/CREAT RATIO [place] ([facility]) Note: Responsible Observer: BUN/CREAT RA MATY BUN/CREAT RATIO 300.0450 (A) Bilirubin.total [Mass/volume] in Serum or Plasma 0.5 MG/DL Normal BILIRUBIN,TOTAL [place] ([facility]) Note: Responsible Observer: TOTAL BILI T OTAL BILIRUBIN 300.2700 (A) BLOOD UREA NITRO 17 MG/DL Normal BLOOD UREA NITRO [facility] ([facility]) Note: Responsible Observer: BUN BLOOD UR EA NITROGEN 300.0350 (A) CA 9.6 MG/DL Normal CA [facility] Note: Responsible Observer: CA CALCIUM 300.2200 (A) Chloride [Moles/volume] in Serum, Plasma or Blood 104 MEQ/L Normal CHLORIDE MICHAEL ([facility]) Note: Responsible Observer: CL CHLORIDE 300.0200 (A) Carbon dioxide, total [Moles/volume] in Serum or Plasma 28 MEQ/L Normal CARBON DIOXIDE MICHAEL ([facility]) Note: Responsible Observer: CO2 CARBON D IOXIDE 300.0250 (A) Creatine/Creatinine [Mass Ratio] in Urine 1.1 MG/DL Danielle l CREATININE MICHAEL ([facility]) Note: Responsible Observer: CREAT CREATI NINE 300.0400 (A) Anion gap in Blood 9 Normal ANION GAP MICHAEL ([facility]) Note: Responsible Observer: ANION GAP AN ION GAP 300.0300 (A) Globulin [Mass/volume] in Serum by calculation 2.2 G/DL Normal GLOBULIN MICHAEL ([facility]) Note: Responsible Observer: GLOB GLOBULI N 300.4050 (A) GFR 69.2 ML/MIN GFR MICHAEL ([facility]) Note: Stage G2 - Mildly decreased kidne y function The GFR is an estimate of the Glomerular Filtration Rate. It is an aid to assess a patient's renal function. It is not a conclusive diagnosis of kidney disease. GFR normal is >=90 The MDRD GFR calculation is considered valid between the ages of 18 and 75 years only.Responsible Observer: GFR GFR 300.0410 (A) Glucose [Presence] in Urine 98 MG/DL Normal GLUCOSE GR [place] ([facility]) Note: Responsible Observer: GLU GLUCOSE 300.0500 (A) Potassium [Mass/volume] in Blood 4.5 MEQ/L Normal POT ASSIUM MICHAEL ([facility]) Note: Responsible Observer: K POTASSIUM 300.0150 (A) Sodium [Moles/volume] in Serum, Plasma or Blood 136 MEQ/L Normal SODIUM MICHAEL ([facility]) Note: Responsible Observer: NA SODIUM 3 00.0100 (A) Protein [Mass/volume] in Synovial fluid 6.9 G/DL Normal TOTAL PROTEIN MICHAEL ([facility]) Note: Responsible Observer: TP TOTAL PRO TEIN 300.3750 (A) ID Date Data Source [id number] 05/20/2020 09:50:00 AM EST MICHAEL ([facility]) Name Value Range Interpretation Code Description Data Madelyn rce(s) Supporting Document(s) BASO # (AUTO) 0.04 10\\^3/uL Normal BASO # (AUTO) MICHAEL ([facility]) Note: Responsible Observer: BASO # (AUTO ) BASO # (AUTO) 100.1500 (A) BASO % (AUTO) 0.6 % Normal BASO % (AUTO) MICHAEL ([facility]) Note: Responsible Observer: BASO % (AUTO ) BASO % (AUTO) 100.1250 (A) EOS # (AUTO) 0.17 10\\^3/uL Normal EOS # (AUTO) MICHAEL ( [facility]) Note: Responsible Observer: EOS # (AUTO) EOS # (AUTO) 100.1450 (A) EOS % (AUTO) 2.7 % Normal EOS % (AUTO) MICHAEL ([facility]) Note: Responsible Observer: EOS % (AUTO) EOS % (AUTO) 100.1200 (A) GRAN # (AUTO) 3.22 10\\^3/uL Normal GRAN # (AUTO) MICHAEL ([facility]) Note: Responsible Observer: GRAN # (AUTO ) GRAN #(AUTO) 100.1325 (A) GRAN % (AUTO) 51.1 % Normal GRAN % (AUTO) MICHAEL ([facility]) Note: Responsible Observer: GRAN % (AUTO ) GRAN % (AUTO) 100.1000 (A) Hematocrit [Volume Fraction] of Blood by Automated count 47.6 % Normal HEMATOCRIT MICHAEL ([facility]) Note: Responsible Observer: HCT HEMATOCR IT 100.0400 (A) Hemoglobin [Mass/volume] in Blood 15.8 G/DL Normal HE MOGLOBIN MICHAEL ([facility]) Note: Responsible Observer: HGB HEMOGLOB IN 100.0300 (A) IG # (AUTO) 0.0 10\\^3/uL IG # (AUTO) MICHAEL ([facility]) Note: Responsible Observer: IG # (AUTO) IG # (AUTO) 100.1260 (A) IG % (AUTO) 0.3 % IG % (AUTO) MICHAEL ([facility]) Note: Responsible Observer: IG % (AUTO) IG % (AUTO) 100.1255 (A) LYMPH # (AUTO) 2.2 k/uL Normal LYMPH # (AUTO) MICHAEL ( [facility]) Note: Responsible Observer: LYMPH # (AUT O) LYMPH # (AUTO) 100.1350 (A) LYMPH % (AUTO) 35.3 % Normal LYMPH % (AUTO) MICHAEL ( [facility]) Note: Responsible Observer: LYMPH % (AUT O) LYMPH % (AUTO) 100.1100 (A) Erythrocyte mean corpuscular hemoglobin [Entitic mass] by Automated count 30.9 PG Normal MCH [place] ([facility]) Note: Responsible Observer: MCH MCH 100 .0600 (A) Erythrocyte mean corpuscular hemoglobin concentration [Mass/volume] by Automated count 33.2 G/DL Normal MCHC [place] ([facility]) Note: Responsible Observer: MCHC MCHC 1 00.0650 (A) Erythrocyte mean corpuscular volume [Entitic volume] by Auto mated count 93.2 FL Normal MCV [place] ([facility]) Note: Responsible Observer: MCV MCV 100 .0550 (A) MONO # (AUTO) 0.63 k/uL Normal MONO # (AUTO) MICHAEL ([facility]) Note: Responsible Observer: MONO # (AUTO ) MONO # (AUTO) 100.1400 (A) MONO % (AUTO) 10.0 % Normal MONO % (AUTO) MICHAEL ([facility]) Note: Responsible Observer: MONO % (AUTO ) MONO% (AUTO) 100.1150 (A) MPV 9.3 FL Normal MPV MICHAEL ([facility]) Note: Responsible Observer: MPV MPV 100 .0950 (A) Platelets [#/volume] in Plasma by Automated count 355 10\\^3/uL Normal PLATELET COUNT [place] ([facility]) Note: Responsible Observer: PLT PLATELET COUNT 100.0850 (A) Erythrocytes [#/volume] in Blood by Automated count 5.11 10\\^6/uL Normal RED BLOOD COUNT [place] ([facility]) Note: Responsible Observer: RBC RED BLOO D COUNT 100.0250 (A) Erythrocyte distribution width [Ratio] by Automated count 12.5 % Normal RDW [place] ([facility]) Note: Responsible Observer: RDW RDW 100 .0700 (A) Leukocytes [#/volume] in Blood by Automated count 6.31 10\\^3/uL Normal WHITE BLOOD COUNT [place] ([facility]) Note: Responsible Observer: WBC WHITE BL OOD COUNT 100.0150 (A) ID Date Data Source [id number] 05/20/2020 09:50:00 AM EST MICHAEL ([facility]) Name Value Range Interpretation Code Description Data Madelyn rce(s) Supporting Document(s) Reported Physicians See Note Reported Physicians [place] ([facility]) Note: Reported Physicians:Ordering: Delilah Abbott LAttending: Delilah Dillard ID Date Data Source [id number] 05/20/2020 09:50:00 AM EST MICHAEL ([facility]) Name Value Range Interpretation Code Description Data Madelyn rce(s) Supporting Document(s) SALLY,IFA,S Negative SALLY,IFA,S [place] ([facility]) Note: Negative <1:80 Borderline 1:80 Positive >1:80 Performed at: - [facility] [address] [id number] [employer] Coach: Hallie Ariza MD, Phone: [phone] Observer: SALLY,IFA,S SALLY,IFA,S [phone] (A) ID Date Data Source [id number] 05/20/2020 09:50:00 AM EST MICHAEL ([facility]) Name Value Range Interpretation Code Description Data Madelyn rce(s) Supporting Document(s) Cyclic Citrullinat Pep IgG/IgA 12 units Cycli c Citrullinat Pep IgG/IgA [place] ([facility]) Note: Negativ e <20 Weak positive 20 - 39 Moderate positive 40 - 59 Strong positive >59 Performed at: - [facility] [address] [id number] [employer] Coach: David Sanchez MD, Phone: [phone] Observer: Cyclic Cit Pep Cyclic Citrullinat Pep IgG/IgA [phone] (A) ID Date Data Source [id number] 05/20/2020 09:50:00 AM EST MICHAEL ([facility]) Name Value Range Interpretation Code Description Data Madelyn rce(s) Supporting Document(s) C-REACTIVE PROTEIN 13 MG/L Above high normal C-REACTIVE PROTEIN [place] ([facility]) Note: Responsible Observer: C-REACTIVE P ROT C-REACTIVE PROTEIN 300.3650 (A) ID Date Data Source [id number] 05/20/2020 09:50:00 AM EST MICHAEL ([facility]) Name Value Range Interpretation Code Description Data Madelyn rce(s) Supporting Document(s) URIC ACID 7.2 MG/DL Normal URIC ACID [place] ([facility]) Note: Responsible Observer: URIC URIC AC ID 300.2150 (A) ID Date Data Source [id number] 05/20/2020 09:50:00 AM EST MICHAEL ([facility]) Name Value Range Interpretation Code Description Data Madelyn rce(s) Supporting Document(s) SED RATE 13 mm/hr Normal SED RATE [place] ([facility]) Note: Responsible Observer: ESR SED RATE 100.6000 (A) ID Date Data Source [id number] 05/20/2020 09:50:00 AM EST MICHAEL ([facility]) Name Value Range Interpretation Code Description Data Madelyn rce(s) Supporting Document(s) Rheumatoid factor [Presence] in Serum by Latex agglutination NEGATI VE RHEUMATOID FACTOR [place] ([facility]) Note: Test performed by latex agglutina tion methodologyResponsible Observer: RHEUMATOID FACT RHEUMATOID FACTOR 500.0600 (A) ID Date Data Source [id number] 05/20/2020 09:50:00 AM EST MICHAEL ([facility]) Name Value Range Interpretation Code Description Data Madelyn rce(s) Supporting Document(s) Reported Physicians See Note Reported Physicians [place] ([facility]) Note: Reported Physicians:Ordering: Delilah Abbott LAttending: Delilah Dillard ID Date Data Source [id number] 05/20/2020 09:50:00 AM EST [place] ([facility]) Name Value Range Interpretation Code Description Data Madelyn rce(s) Supporting Document(s) Gamma glutamyl transferase [Enzymatic activity/volume] in Serum or Plasma 41 U/L Normal GAMMA GLUTAMYL TRANSPEPTIDASE [place] ([facility]) Note: Responsible Observer: GGT GAMMA GL UTAMYL TRANSPEPTIDASE 300.3000 (A) ID Date Data Source [id number] 05/20/2020 02:15:00 PM [facility] Name Value Range Interpretation Code Description Data Madelyn rce(s) Supporting Document(s) RHEUMATOID FACTOR NEGATIVE NEGATIVE [facility] Test performed by latex agglutination m ethodology ID Date Data Source [id number] 05/20/2020 02:17:00 PM EST [facility] Name Value Range Interpretation Code Description Data Madelyn rce(s) Supporting Document(s) SED RATE 13 mm/hr 0-20 N [facility] ID Date Data Source [id number] 05/22/2020 08:15:00 AM EST [facility] Name Value Range Interpretation Code Description Data Madelyn rce(s) Supporting Document(s) URIC ACID 7.2 MG/DL 2.6-7.2 N [facility] ID Date Data Source [id number] 05/22/2020 09:24:00 AM EST [facility] Name Value Range Interpretation Code Description Data Madelyn rce(s) Supporting Document(s) Cyclic Citrullinat Pep IgG/IgA 12 units 0-19 [facility] Negative <20 Weak positive 20 - 39 Moderate positive 40 - 59 Strong positive >59 Performed at: - [facility] [id number] [employer] Coach: David Sanchez MD, Phone: [phone] ID Date Data Source [id number] 05/22/2020 08:15:00 AM EST [facility] Name Value Range Interpretation Code Description Data Madelyn rce(s) Supporting Document(s) C-REACTIVE PROTEIN 13 MG/L 0.00-5.00 [facility] ID Date Data Source [id number] 05/22/2020 09:24:00 AM EST [facility] Name Value Range Interpretation Code Description Data Madelyn rce(s) Supporting Document(s) SALLY,IFA,S Negative . [facility] Ne gative <1:80 Borderline 1:80 Positive > 1:80 Performed at: [facility] [id number] High School Coach: Hallie Ariza MD, Phone: [phone] ID Date Data Source [id number] 05/20/2020 02:17:00 PM EST [facility] Name Value Range Interpretation Code Description Data Madelyn rce(s) Supporting Document(s) WHITE BLOOD COUNT 6.31 10^3/uL 4.00-10.50 N [facility] ealth RED BLOOD COUNT 5.11 10^6/uL 4.30-5.80 [facility] HEMOGLOBIN 15.8 G/DL 13.0-17.5 [facility] 47.6 % 41.0-53.0 [facility] MCV 93.2 FL 80.0-100.0 [facility] MCH 30.9 PG 27.0-34.0 [facility] MCHC 33.2 G/DL 32-36 [facility] RDW 12.5 % 11.5-14.5 [facility] PLATELET COUNT 355 10^3/uL 130-400 [facility] MPV 9.3 FL 8.7-13.2 [place] [employer] GRAN % (AUTO) 51.1 % 42.0-75.0 [facility] LY[facility]H % (AUTO) 35.3 % 20.0-51.0 [place] [employer] MONO % (AUTO) 10.0 % 2.0-15.0 [place] [employer] EOS % (AUTO) 2.7 % 0.0-11.0 [facility] BASO % (AUTO) 0.6 % 0.0-2.0 [place] [employer] IG % (AUTO) 0.3 % 1.00-5.00 [place] [employer] IG # (AUTO) 0.0 10^3/uL <0.5 [place] [employer] GRAN # (AUTO) 3.22 10^3/uL 1.50-6.50 [place] [employer] LYMPH # (AUTO) 2.2 k/uL 1.0-5.0 [place] [employer] MONO # (AUTO) 0.63 k/uL 0.20-1.50 [place] [employer] EOS # (AUTO) 0.17 10^3/uL 0.00-1.10 [place] [employer] BASO # (AUTO) 0.04 10^3/uL 0.00-0.20 [place] [employer] ID Date Data Source [id number] 05/22/2020 08:15:00 AM [facility] Name Value Range Interpretation Code Description Data Madelyn rce(s) Supporting Document(s) SODIUM 136 MEQ/L 135-145 [place] [employer] POTASSIUM 4.5 MEQ/L 3.5-5.3 [facility] CHLORIDE 104 MEQ/L 94-110 [facility] CARBON DIOXIDE 28 MEQ/L 22-33 [facility] ANION GAP 9 5-16 [facility] BLOOD UREA NITRO 17 MG/DL 7-25 N [facility] CREATININE 1.1 MG/DL 0.6-1.4 [facility] GFR 69.2 ML/MIN [facility] Stage G2 - Mildly decreased kidney func tion The GFR is an estimate of the Glomerular Filtration Rate. It is an aid to assess a patient's renal function. It is not a conclusive diagnosis of kidney disease. GFR normal is >=90 The MDRD GFR calculation is considered valid between the ages of 18 and 75 years only. BUN/CREAT RATIO 15 8-36 [facility] GLUCOSE 98 MG/DL 70-100 [facility] CA 9.6 MG/DL 8.7-10.5 [facility] BILIRUBIN,TOTAL 0.5 MG/DL 0.1-1.3 [facility] AST 22 U/L 5-40 N [facility] ALT 25 U/L 5-48 [facility] ALKALINE PHOSPHATASE 141 U/L 40-140 H [facility] alth TOTAL PROTEIN 6.9 G/DL 5.9-8.3 N [facility] ALBUMIN 4.7 G/DL 3.0-5.1 [facility] GLOBULIN 2.2 G/DL 1.5-3.5 [facility] ALB/GLOB RATIO 2.1 G/DL 1.0-3.0 N [facility] ID Date Data Source [id number] 05/22/2020 08:15:00 AM [facility] Name Value Range Interpretation Code Description Data Madelyn rce(s) Supporting Document(s) TRIGLYCERIDES 116 MG/DL 45-150 N [facility] CHOLESTEROL 201 MG/DL 125-200 H [facility] LDL CHOLESTEROL 142 MG/DL 50-130 H [facility] HDL CHOLESTEROL 36 MG/DL 39-96 L [facility] CHOL/HDL RATIO 5.6 0-4.9 H [facility] ID Date Data Source [id number] 05/22/2020 08:15:00 AM [facility] Name Value Range Interpretation Code Description Data Madelyn rce(s) Supporting Document(s) PSA SCREEN 7.92 NG/ML 0.06-4.00 [facility] [employer] Do not interpret PSA results as absolut e evidence of the presence or absence of [...] for the PSA is determined using the [employer] that utilizes a direct chemiluminometric technology. The result is not interchangeble with different assay methods. ID Date Data Source [id number] 05/22/2020 08:15:00 AM [facility] [employer] Name Value Range Interpretation Code Description Data Madelyn rce(s) Supporting Document(s) TSH 1.922 uIU/ML 0.470-4.200 N [employer] Patients should not be tested for 70 ho urs post fluorescein dye angiography. A false depression of result may occur. ID Date Data Source [id number] 05/22/2020 08:15:00 AM [facility] [employer] Name Value Range Interpretation Code Description Data Madelyn rce(s) Supporting Document(s) GAMMA GLUTAMYL TRANSPEPTIDASE 41 U/L 5-90 N [employer] ID Date Data Source [id number] 03/29/2020 12:00:00 AM EST [facility] Name Value Range Interpretation Code Description Data Madelyn rce(s) Supporting Document(s) SARS coronavirus 2 RNA [Presence] in Res piratory specimen by MIKY with probe detection [facility] This lab was ordered by Jeimy Mercedes and reported by Hunie. ID Date Data Source [id number] 01/15/2020 12:00:00 AM EDT [facility] Pepe Torres MD Patient Name: FRANCE [id number] [facility] Date of : 1965[place] Date of Exam: 01/15/2020ALEX Mercedes [id number]#: Fax: [phone] EXAM: CT THORAX WITHOUT CONTRASTCLINICAL INFORMATION: Followup nodules.All priors were reviewed the latest of which is dated 09/14/2019, alsowithout contrast.64 slice low dose helical CT scanning was obtained through out the thoraxwithout intravenous contrast along with sagittal and coronalreconstructions.There is no significant change in the appearance of the mediastinum orpulmonary venkat. Non-enlarged lymph nodes are noted, status quo. There areno pleural or pericardial effusions. There is no significant change in theappearance of the imaged upper abdomen or imaged osseous structures.Evaluation of the lung quiñones shows essentially stable appearing scatteredground-glass opacities with evidence of small pleural blebs and parenchymalbulla, all stable. There is no evidence of interim development of anabnormal nodule, mass, or opacity.IMPRESSION:Stable CT findings as described above.Accredited by the [employer] in [place].ED Campbell/Estephanie you for referring FRANCE KAMINSKI to our office. Electronically Signed - VETO GUZMAN DO 01/16/20 16:35 Name Value Range Interpretation Code Description Data Madelyn rce(s) Supporting Document(s) ID Date Data Source [id number] 01/01/2020 02:57:00 PM EDT [facility] Name Value Range Interpretation Code Description Data Madelyn rce(s) Supporting Document(s) SARS-CoV-2 RdRp gene result [facility] This lab was ordered by Jeimy RAMON Maximino ellis and reported by Jeimy Mckeon. ID Date Data Source [id number] 09/14/2019 12:00:00 AM EDT [facility] Pepe Torres MD Patient Name: FRANCE [id number] [facility] Date of : 1965[place] Date of Exam: 09/14/2019ALEX Mercedes [id number]#: Fax: [phone] EXAM: CT THORAX WITHOUT CONTRASTCLINICAL INFORMATION: Followup nodule.All priors were reviewed, the latest is 06/08/2019.64 slice low dose helical CT scanning was obtained throughout the thoraxwithout intravenous cont rast along with sagittal and coronalreconstructions.The mediastinum and pulmonary venkat are unchanged. There is no mass oradenopathy. There are no pleural or pericardial effusions. The imagedupper abdomen shows a tiny right nephrolith, status quo. Calcificationsare again seen in the spleen from chronic granulomatous changes, statusquo. The imaged osseous structures are within normal limits and unchanged.Evaluation of the lung quiñones shows chronic patchy ground-glass opacitiesalong with some areas of honeycomb lung, all stable. No new abnormalnodules, masses, or opacities have developed. The opacity seen previouslyin the lingula is smaller and less dense. The 6 mm sized nodular densityseen in the right lung base is unchanged.IMPRESSION:1. 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 The lingular opacity has improved as described above.3. No new abnormalities have developed.4. There is no revised Fleischner Society criteria on the recomm endationfor followup of such findings. Followup should be based on clinicalassessment.Accredited by the [employer] in [place].Veto Guzman, ED/sandracTmaricarmen you for referring FRANCE KAMINSKI to our office. Electronically Signed - VETO GUZMAN DO 09/14/19 13:18 Name Value Range Interpretation Code Description Data Madelyn rce(s) Supporting Document(s) ID Date Data Source [id number] 06/11/2019 11:05:00 AM EST [facility] ([facility]) Name Value Range Interpretation Code Description Data Madelyn rce(s) Supporting Document(s) Alt/SGPT 25 U/L 12-78 Normal (applies to non-numeric resul ts) [facility] ([facility]) awaiting fungal & connective tissue Ast/Sgot 18 U/L 7-37 Normal (applies to non-numeric resul ts) [facility] ([facility]) awaiting fungal & connective tissue Alkaline Phosphatase 130 U/L 45-117 Above high normal [facility] ([facility]) awaiting fungal & connective tissue Bilirubin,Total 0.4 mg/dL 0.2-1.0 Normal (applies to non-numeric results) [facility] awaiting fungal & connective tissue Total Protein 7.5 GM/DL 6.4-8.2 Normal (applies to non-numeric re sults) [facility]) awaiting fungal & connective tissue Bilirubin,Direct 0.1 mg/dL 0.0-0.2 Normal (applies to non-numeric results) [facility]) awaiting fungal & connective tissue Albumin 3.9 GM/DL 3.2-5.2 Normal (applies to non-numeric resul ts) [facility]) awaiting fungal & connective tissue Albumin/Globulin Ratio 1.08 1.00-1.93 Normal (applies to non-numeric results) [facility]) awaiting fungal & connective tissue ID Date Data Source [id number] 06/11/2019 11:05:00 AM EST [facility] ([facility]) Name Value Range Interpretation Code Description Data Madelyn rce(s) Supporting Document(s) Red Blood Count 5.16 10 4.30-6.10 Normal (applies to non-numeric results) [facility] ([facility]) awaiting fungal & connective tissue White Blood Count 6.4 10 4.0-10.0 Normal (applies to non-numeri c results) [facility] ([facility]) awaiting fungal & connective tissue Hemoglobin 16.2 g/dL 13.5-17.5 Normal (applies to non-numeric resul ts) [facility] ([facility]) awaiting fungal & connective tissue Mean Corpuscular Volume 94.2 fl 80.0-96.0 Normal ( applies to non-numeric results) [facility] ([facility]) awaiting fungal & connective tissue Hematocrit 48.6 % 42.0-52.0 Normal (applies to non-numeric resul ts) [facility] ([facility]) awaiting fungal & connective tissue Mean Corpuscular Hemoglobin 31.4 pg 27.0-33.0 Norm al (applies to non-numeric results) [facility] ([facility]) awaiting fungal & connective tissue Red Cell Distribution Width 13.1 % 11.5-14.5 Norm al (applies to non-numeric results) [facility] ([facility]) awaiting fungal & connective tissue Mean Corpuscular HGB Conc 33.3 g/dL 32.0-36.5 Normal (applies to non-numeric results) [facility] ([facility]) awaiting fungal & connective tissue Neutrophils % 50.2 % 36.0-66.0 Normal (applies to non-numeric re sults) [facility] ([facility]) awaiting fungal & connective tissue Lymph % 37.2 % 24.0-44.0 Normal (applies to non-numeric resul ts) [facility] ([facility]) awaiting fungal & connective tissue Platelet Count, Automated 312 10 150-450 Normal (applies to non-numeric results) [facility] ([facility]) awaiting fungal & connective tissue Eos % 2.8 % 0.0-3.0 Normal (applies to non-numeric resul ts) [facility] ([facility]) awaiting fungal & connective tissue Rolette % 8.9 % 0.0-5.0 Above high normal [facility] ([facility]) awaiting fungal & connective tissue Immature Granulocyte % 0.3 % 0-3.0 Normal (applies to non-n umeric results) [facility] ([facility]) awaiting fungal & connective tissue Nucleated Red Blood Cell % 0.0 % 0-0 Normal (applies to n on-numeric results) [facility] ([facility]) awaiting fungal & connective tissue Baso % 0.6 % 0.0-1.0 Normal (applies to non-numeric resul ts) [facility]) awaiting fungal & connective tissue Lymph # 2.4 10 1.5-5.0 Normal (applies to non-numeric resul ts) [facility]) awaiting fungal & connective tissue Neutrophils # 3.2 10 1.5-8.5 Normal (applies to non-numeric re sults) [facility]) awaiting fungal & connective tissue Rolette # 0.6 10 0.0-0.8 Normal (applies to non-numeric resul ts) [facility]) awaiting fungal & connective tissue Baso # 0.0 10 0.0-0.2 Normal (applies to non-numeric resul ts) [facility]) awaiting fungal & connective tissue Eos # 0.2 10 0.0-0.5 Normal (applies to non-numeric resul ts) [facility]) awaiting fungal & connective tissue ID Date Data Source [id number] 06/11/2019 11:05:00 AM EST [facility] ([facility]) Name Value Range Interpretation Code Description Data Madelyn rce(s) Supporting Document(s) Angiotensin converting enzyme [Enzymatic activity/volu me] in Serum or Plasma 33 U/L 14-82 Normal (applies to non-numeric results) [facility]) awaiting fungal & connective tissue Calcium [Mass/volume] in Serum or Plasma 9.1 mg/dL 8.5-10. 1 Normal (applies to non-numeric results) [facility]) awaiting fungal & connective tissue ID Date Data Source [id number] 06/11/2019 11:05:00 AM EST [facility] ([facility]) Name Value Range Interpretation Code Description Data Madelyn rce(s) Supporting Document(s) Aspergillus Fumigatus Natasha Laboratory test result Normal (applies to non- numeric results) [facility] ([facility]) awaiting fungal & connective tissue Aspergillus Niger Natasha Laboratory test result Nor mal (applies to non-numeric results) [facility] ([facility]) awaiting fungal & connective tissue Aspergillus Flavus Natasha Laboratory test result No rmal (applies to non-numeric results) [facility] ([facility]) awaiting fungal & connective tissue ID Date Data Source [id number] 06/11/2019 11:05:00 AM [facility] ([facility]) Name Value Range Interpretation Code Description Data Madelyn rce(s) Supporting Document(s) Histoplasmosis Antibody Laboratory test result N ormal (applies to non-numeric results) [facility] ([facility]) awaiting fungal & connective tissue Cryptococcus sp Ag [Presence] in Serum by Immunoassay Laboratory test result Normal (applies to non-numeric results) [facility] ([facility]) awaiting fungal & connective tissue Coccidioides sp Ab [Units/volume] in Serum 0.6 IV Normal (applies to non- numeric results) [facility] ([facility]) awaiting fungal & connective tissue Blastomyces Antibody Level Laboratory test result Normal (applies to non- numeric results) [facility] ([facility]) awaiting fungal & connective tissue ID Date Data Source [id number] 06/11/2019 11:05:00 AM EST [facility] ([facility]) Name Value Range Interpretation Code Description Data Madelyn rce(s) Supporting Document(s) Aspergillus Fumigatus AB Laboratory test result Normal (applies to non-numeric results) [facility] ([facility]) awaiting fungal & connective tissue Aureobasidium Pullulans Laboratory test result N ormal (applies to non-numeric results) [facility] ([facility]) awaiting fungal & connective tissue Micropolyspora Faeni AB Laboratory test result N ormal (applies to non-numeric results) [facility] ([facility]) awaiting fungal & connective tissue Ellsworth Serum AB Laboratory test result Normal (a pplies to non-numeric results) [facility] ([facility]) awaiting fungal & connective tissue Thermoactinomyces Sacchari Laboratory test result Normal (applies to non- numeric results) [facility] ([facility]) awaiting fungal & connective tissue Thermoactinomyces Vulgaris Laboratory test result Normal (applies to non- numeric results) [facility] ([facility]) awaiting fungal & connective tissue ID Date Data Source [id number] 06/11/2019 11:05:00 AM EST [facility] ([facility]) Name Value Range Interpretation Code Description Data Madelyn rce(s) Supporting Document(s) Perinuclear AB Anca-P Laboratory test result Nor mal (applies to non-numeric results) [facility]) awaiting fungal & connective tissue Anca-Atypical Laboratory test result Normal (applies t o non-numeric results) [facility]) awaiting fungal & connective tissue Cytoplasmic Neutrop AB Anca-C Laboratory test result Normal (applies to non- numeric results) [facility] ([facility]) awaiting fungal & connective tissue ID Date Data Source [id number] 06/11/2019 11:05:00 AM EST [facility] ([facility]) Name Value Range Interpretation Code Description Data Madelyn rce(s) Supporting Document(s) Laboratory test finding (navigational concept) Laboratory test r esult Normal (applies to non-numeric results) [facility] awaiting fungal & connective tissue ID Date Data Source [id number] 06/11/2019 11:05:00 AM EST [facility] ([facility]) Name Value Range Interpretation Code Description Data Madelyn rce(s) Supporting Document(s) BUSINESS CONTINUITY DIRECTOR Antibodies 0.2 AI 0.0-0.9 Normal (applies to non-numeric r esults) [facility] ([facility]) awaiting fungal & connective tissue Antinuclear Antibodies Direct Laboratory test result Normal (applies to non- numeric results) [facility]) awaiting fungal & connective tissue Sjogren's Anti SS-A Laboratory test result 0.0-0.9 Danielle l (applies to non- numeric results) [facility] ([facility]) awaiting fungal & connective tissue Sjogren's Anti SS-B Laboratory test result 0.0-0.9 Danielle l (applies to non- numeric results) [facility] ([facility]) awaiting fungal & connective tissue Aguilar Antibodies Laboratory test result 0.0-0.9 Normal ( applies to non-numeric results) [facility]) awaiting fungal & connective tissue ID Date Data Source [id number] 06/11/2019 11:05:00 AM EST [facility] ([facility]) Name Value Range Interpretation Code Description Data Madelyn rce(s) Supporting Document(s) Erythrocyte sedimentation rate by Westergren method 9 mm/hr 0-20 Normal (applies to non-numeric results) [facility]) awaiting fungal & connective tissue ID Date Data Source [id number] 06/08/2019 12:00:00 AM EST [facility] Mariluz Patel Np Patient Name: SARA KAMINSKI Date of : 1965[place] [address] Date of Exam: 06/08/2019PH#: Fax: [phone] EXAM: CT THORAX WITH CONTRASTCLINICAL INFORMATION: Lung nodule.Comparison screening CT chest 05/24/19, CT abdomen and pelvis 04/14/16 [facility].Low dose [address] scanning of the chest was obtained using 3 mmincrements after the administration of intravenous contrast andreconstructed in both coronal and sagittal scan planes. 75 cc of Tlraofl183 was administered intravenously.In the region of the lingula at the site of the suspected nodule seen onthe recent lung screening CT, there is a band of density which is pleuralbased having a transverse diameter of approximately 2.3 cm and an APthickness maximally of about 8 mm. This band of density has a somewhatelongated triangular appearance with the base along the lateral pleuralsurface, tapering medially. In my opinion, this is more consistent with anarea of fibroatelectasis rather than neoplasm. however, followup iswarranted. It is new when compared to the prior CT of 04/14/16.In the right posterior costophrenic sulcus in a subpleural location, thereis an ill-defined 6 mm nodu lar density which is probably related tosubpleural fibrotic scarring. More superiorly throughout the right lung,there are ill-defined areas of subpleural fibrotic scarring. There isdiffuse interstitial fibrotic scarring of a fjfu-zl-vfbcnfol degree.Subpleural bullous change is seen to a lklu-de-sscinbhq extent primarily inboth upper lobes. Calcified granuloma seen in right lower lobe. Heart isnot significantly enlarged. There is no dilatation of the thoracic aorta.There are mild atherosclerotic calcifications. There is no mediastinal,hilar or chest wall lymphadenopathy. There is no pleural or pericardialeffusion. Calcified granulomas are seen in the spleen. There aredegenerative changes in the spine.IMPRESSION:In the lingula, there is a band of parenchymal density 2.3 cm in transversedimension and 8 mm in AP dimension with a pleural base, tapering medially.In my opinion, this is most consistent with an area of fibroatelectasisrather than neoplasm. However, I would recommend either PET CT, or [address] as followup. Subpleural 6 mm nodular density is seen in theright posterior costophrenic sulcus. Otherwise, there are diffuse fibroticchanges throughout both lungs and a tiny calcified granuloma seen in theright lower lobe. No adenopathy.Accredited by the [employer] in [place].Larry Briseno, JOSE ANGEL/Estephanie you for referring FRANCE KAMINSKI to our office. Electronically Signed - LARRY BRISENO MD 06/08/19 15:52 Name Value Range Interpretation Code Description Data Madelyn rce(s) Supporting Document(s) ID Date Data Source [id number] 05/24/2019 12:00:00 AM EST [facility] Delilah Dillard Np Patient Name: [facility]INSKI [facility] 1965[facility] [place] [address] Date of Exam: 05/24/2019PH#: Fax: [phone] EXAM: LOW DOSE CT LUNG SCREENINGCLINICAL INFORMATION: Nicotine dependance. 30+ year smoking history.TECHNIQUE:64 slice low dose lung screening CT was obtained using axial images in a YBfilter (lung) without intravenous contrast. As per the protocol, only lungwindow images were sent to the read station for interpretation.FINDINGS:No comparison studies.The lung quiñones are well inflated. There are scattered ground-glassopacities peripherally on both sides and along major fissure in the leftupper lung zone and both bases. Triangular shaped density peripherally inthe inferior lingular segment of the left upper lobe at the left lung baseis up to 16.5 mm. It has a more solid appearance. A few small pleuralbased nodules in the deep sulcus of the right lower lobe up to 5 mm insize. Some mild cylindrical bronchiectatic changes are seen. Noparenchymal lung mass is evident. No pneumothorax or pneumomediastinum.Some degree of hyperinflation present. Prominent epicardial fat pads.Marginal osteophytes in the spine with the shoulders, ribs and spine alongwith sternum and manubrium without destructive lesion or definite fracture. IMPRESSION:1. LungRads Category 4B. Solid nodule greater than [address] with contrast along with pulmonary referral to evaluate for theneed for PET CT or tissue sampling. Patients with this category of lesionhave the probability of malignancy of 15% at the time of the scan.Accredited by the [employer] in [place].Sotero Dowd, WEN/Estephanie you for referring FRANCE KAMINSKI to our office. Electronically Signed - SOTERO DOWD MD 05/25/19 12:30 Name Value Range Interpretation Code Description Data Madelyn rce(s) Supporting Document(s) ID Date Data Source [id number] 05/15/2019 08:55:00 AM EST [facility] ([facility]) Name Value Range Interpretation Code Description Data Madelyn rce(s) Supporting Document(s) Reported Physicians See Note Reported Physicians [place] ([facility]) Note: Reported Physicians:Ordering: Delilah Abbott LAttending: Delilah Dillard ID Date Data Source [id number] 05/15/2019 08:55:00 AM EST MICHAEL ([facility]) Name Value Range Interpretation Code Description Data Madelyn rce(s) Supporting Document(s) Thyrotropin [Units/volume] in Serum or Plasma by Detec tion limit <= 0.05 mIU/L 1.887 uIU/ML Normal TSH [place] ([facility]) Note: Patients should not be tested for 72 hours post fluorescein dye angiography. A false depression of result may occur.Responsible Observer: TSH TSH 300.5500 (A) ID Date Data Source [id number] 05/15/2019 08:55:00 AM EST [email or web address] ([place]) Name Value Range Interpretation Code Description Data Madelyn rce(s) Supporting Document(s) Calcidiol [Mass/volume] in Serum or Plasma 27.9 ng/ml Below low normal Vitamin D,25-HYDROXY [place] ([facility]) Note: Vitamin D Status Rang e Deficiency <20 ng/ml Insufficiency 20-29.9 ng/ml Sufficiency 30-100 ng/ml Toxicity >100 ng/ml Patients should not be tested for 72 hours post fluorescein dye angiography. A false elevation of result may occur.Responsible Observer: Vitamin D Vitamin D,25-Hydroxy 300.5230 (A) ID Date Data Source [id number] 05/15/2019 08:55:00 AM EST [email or web address] ([place]) Name Value Range Interpretation Code Description Data Madelyn rce(s) Supporting Document(s) Cholesterol crystals [Presence] in Stone by Infrared spectroscop y 181 MG/DL Normal CHOLESTEROL MICHAEL ([facility]) Note: Responsible Observer: CHOL CHOLEST MARYANN 300.4350 (A) Deprecated Cholesterol.in LDL/Cholestero l.in HDL [Mass ratio] in Serum or Plasma 4.6 Normal CHOL/HDL RATIO MICHAEL ([facility] ) Note: Responsible Observer: CHOL/HDL RAT IO CHOL/HDL RATIO 300.4700 (A) Triglyceride [Mass/volume] in Serum or Plasma 101 MG/DL N ormal TRIGLYCERIDES MICHAEL ([facility]) Note: Responsible Observer: TRIG TRIGLYC ERIDES 300.4300 (A) Cholesterol in HDL [Mass/volume] in Serum or Plasma ultracen trifugate 39 MG/DL Normal HDL CHOLESTEROL [place] ([facility]) Note: Responsible Observer: HDL HDL CHOL ESTEROL 300.4600 (A) Cholesterol in LDL [Mass/volume] in Serum or Plasma by Direct as say 122 MG/DL Normal LDL CHOLESTEROL [place] ([facility]) Note: Responsible Observer: LDL LDL CHOL ESTEROL 300.4400 (A) ID Date Data Source [id number] 05/15/2019 08:55:00 AM EST [email or web address] ([place]) Name Value Range Interpretation Code Description Data Madelyn rce(s) Supporting Document(s) Albumin/Globulin [Mass Ratio] in Amniotic fluid 2.0 G/DL Normal ALB/GLOB RATIO MICHAEL ([facility]) Note: Responsible Observer: A/G RATIO AL B/GLOB RATIO 300.4100 (A) Alkaline phosphatase isoenzyme [Units/volume] in Serum or Plasma 123 U/L Normal ALKALINE PHOSPHATASE MICHAEL ([facility]) Note: Responsible Observer: ALK PHOS ALK LOREE PHOSPHATASE 300.3110 (A) Albumin [Mass/volume] in Synovial fluid 4.4 G/DL Normal ALBUMIN MICHAEL ([facility]) Note: Responsible Observer: ALB ALBUMIN 300.3900 (A) Alanine aminotransferase [Enzymatic activity/volume] in Seru m or Plasma 18 U/L Normal ALT MICHAEL ([facility]) Note: Responsible Observer: ALT/SGPT ALT 300.3100 (A) Aspartate aminotransferase [Enzymatic activity/volume] in Serum or Plasma 20 U/L Normal AST MICHAEL ([facility]) Note: Responsible Observer: AST/SGOT AST 300.3050 (A) Urea nitrogen/Creatinine [Mass Ratio] in Serum or Plasma 17 Normal BUN/CREAT RATIO MICHAEL ([facility]) Note: Responsible Observer: BUN/CREAT RA MATY BUN/CREAT RATIO 300.0450 (A) BLOOD UREA NITRO 19 MG/DL Normal [facility]LOOD [facility]RO [facility] ([facility]) Note: Responsible Observer: BUN BLOOD UR EA NITROGEN 300.0350 (A) Bilirubin.total [Mass/volume] in Serum or Plasma 0.7 MG/DL Normal BILIRUBIN,TOTAL MICHAEL ([facility]) Note: Responsible Observer: TOTAL BILI T OTAL BILIRUBIN 300.2700 (A) CA 9.7 MG/DL Normal CA MICHAEL ([facility]) Note: Responsible Observer: CA CALCIUM 300.2200 (A) Anion gap in Blood 11 Normal ANION GAP MICHAEL ([facility]) Note: Responsible Observer: ANION GAP AN ION GAP 300.0300 (A) Chloride [Moles/volume] in Serum, Plasma or Blood 106 MEQ/L Normal CHLORIDE MICHAEL ([facility]) Note: Responsible Observer: CL CHLORIDE 300.0200 (A) Carbon dioxide, total [Moles/volume] in Serum or Plasma 28 MEQ/L Normal CARBON DIOXIDE MICHAEL ([facility]) Note: Responsible Observer: CO2 CARBON D IOXIDE 300.0250 (A) Creatine/Creatinine [Mass Ratio] in Urine 1.1 MG/DL Danielle l CREATININE MICHAEL ([facility]) Note: Responsible Observer: CREAT CREATI NINE 300.0400 (A) Globulin [Mass/volume] in Serum by calculation 2.2 G/DL Normal GLOBULIN MICHAEL ([facility]) Note: Responsible Observer: GLOB GLOBULI N 300.4050 (A) Glucose [Presence] in Urine 102 MG/DL Above high normal G LUCOSE MICHAEL ([facility]) Note: Responsible Observer: GLU GLUCOSE 300.0500 (A) GFR 69.5 ML/MIN GFR MICHAEL ([facility]) Note: Stage G2 - Mildly decreased kidne y function GFR normal is >=90 The MDRD GFR calculation is considered valid between the ages of 18 and 75 years only. The GFR is an estimate of the Glomerular Filtration Rate. It is considered accurate in evaluating patients with Chronic Kidney Disease,but may underestimate kidney function in Healthy Patients.Responsible Observer: GFR GFR 300.0410 (A) Protein [Mass/volume] in Synovial fluid 6.6 G/DL Normal TOTAL PROTEIN MICHAEL ([facility]) Note: Responsible Observer: TP TOTAL PRO TEIN 300.3750 (A) Potassium [Mass/volume] in Blood 4.1 MEQ/L Normal POT ASSIUM MICHAEL ([facility]) Note: Responsible Observer: K POTASSIUM 300.0150 (A) Sodium [Moles/volume] in Serum, Plasma or Blood 141 MEQ/L Normal SODIUM MICHAEL ([facility]) Note: Responsible Observer: NA SODIUM 3 00.0100 (A) ID Date Data Source [id number] 05/15/2019 08:55:00 AM EST MICHAEL ([facility]) Name Value Range Interpretation Code Description Data Madelyn rce(s) Supporting Document(s) BASO % (AUTO) 0.5 % Normal BASO % (AUTO) MICHAEL ([facility]) Note: Responsible Observer: BASO % (AUTO ) BASO % (AUTO) 100.1250 (A) BASO # (AUTO) 0.03 10\\^3/uL Normal BASO # (AUTO) MICHAEL ([facility]) Note: Responsible Observer: BASO # (AUTO ) BASO # (AUTO) 100.1500 (A) EOS # (AUTO) 0.19 10\\^3/uL Normal EOS # (AUTO) MICHAEL ( [facility]) Note: Responsible Observer: EOS # (AUTO) EOS # (AUTO) 100.1450 (A) EOS % (AUTO) 3.4 % Normal EOS % (AUTO) MICHAEL ([facility]) Note: Responsible Observer: EOS % (AUTO) EOS % (AUTO) 100.1200 (A) Hematocrit [Volume Fraction] of Blood by Automated count 47.0 % Normal HEMATOCRIT MICHAEL ([facility]) Note: Responsible Observer: HCT HEMATOCR IT 100.0400 (A) GRAN % (AUTO) 46.0 % Normal GRAN % (AUTO) [facility] Note: Responsible Observer: GRAN % (AUTO ) GRAN % (AUTO) 100.1000 (A) GRAN # (AUTO) 2.55 10\\^3/uL Normal GRAN # (AUTO) MICHAEL ([facility]) Note: Responsible Observer: GRAN # (AUTO ) GRAN #(AUTO) 100.1325 (A) Hemoglobin [Mass/volume] in Blood 16.0 G/DL Normal HE MOGLOBIN MICHAEL ([facility]) Note: Responsible Observer: HGB HEMOGLOB IN 100.0300 (A) IG # (AUTO) 0.0 10\\^3/uL IG # (AUTO) MICHAEL ([facility]) Note: Responsible Observer: IG # (AUTO) IG # (AUTO) 100.1260 (A) LYMPH % (AUTO) 41.1 % Normal LYMPH % (AUTO) MICHAEL ( [facility]) Note: Responsible Observer: LYMPH % (AUT O) LYMPH % (AUTO) 100.1100 (A) IG % (AUTO) 0.2 % IG % (AUTO) MICHAEL ([facility]) Note: Responsible Observer: IG % (AUTO) IG % (AUTO) 100.1255 (A) LYMPH # (AUTO) 2.3 k/uL Normal LYMPH # (AUTO) MICHAEL ( [facility]) Note: Responsible Observer: LYMPH # (AUT O) LYMPH # (AUTO) 100.1350 (A) Erythrocyte mean corpuscular hemoglobin [Entitic mass] by Automated count 31.0 PG Normal MCH MICHAEL ([facility]) Note: Responsible Observer: MCH MCH 100 .0600 (A) Erythrocyte mean corpuscular hemoglobin concentration [Mass/volume] by Automated count 34.0 G/DL Normal MCHC MICHAEL ([facility]) Note: Responsible Observer: MCHC MCHC 1 00.0650 (A) MONO # (AUTO) 0.49 k/uL Normal MONO # (AUTO) [facility] Note: Responsible Observer: MONO # (AUTO ) MONO # (AUTO) 100.1400 (A) Erythrocyte mean corpuscular volume [Entitic volume] by Auto mated count 91.1 FL Normal MCV MICHAEL ([facility]) Note: Responsible Observer: MCV MCV 100 .0550 (A) MONO % (AUTO) 8.8 % Normal MONO % (AUTO) [facility] Note: Responsible Observer: MONO % (AUTO ) MONO% (AUTO) 100.1150 (A) Erythrocytes [#/volume] in Blood by Automated count 5.16 10\\^6/uL Normal RED BLOOD COUNT [place] ([facility]) Note: Responsible Observer: RBC RED BLOO D COUNT 100.0250 (A) MPV 10.0 FL Normal MPV [place] ([facility]) Note: Responsible Observer: MPV MPV 100 .0950 (A) Platelets [#/volume] in Plasma by Automated count 277 10\\^3/uL Normal PLATELET COUNT [place] ([facility]) Note: Responsible Observer: PLT PLATELET COUNT 100.0850 (A) Erythrocyte distribution width [Ratio] by Automated count 12.6 % Normal RDW [place] ([facility]) Note: Responsible Observer: RDW RDW 100 .0700 (A) Leukocytes [#/volume] in Blood by Automated count 5.55 10\\^3/uL Normal WHITE BLOOD COUNT [place] ([facility]) Note: Responsible Observer: WBC WHITE BL OOD COUNT 100.0150 (A) ID Date Data Source [id number] 05/15/2019 08:55:00 AM EST MICHAEL ([facility]) Name Value Range Interpretation Code Description Data Madelyn rce(s) Supporting Document(s) Reported Physicians See Note Reported Physicians [place] ([facility]) Note: Reported Physicians:Ordering: Delilah Abbott LAttending: Delilah Dillard ID Date Data Source [id number] 05/15/2019 08:55:00 AM EST [facility] Name Value Range Interpretation Code Description Data Madelyn rce(s) Supporting Document(s) PSA SCREEN 0.81 NG/ML Normal PSA SCREEN [place] ([facility]) Note: Do not interpret PSA results as [...] for the PSA is determined using the [employer] that utilizes a direct chemiluminometric technology. The result is not interchangeble with different assay methods.Responsible Observer: PSA PROSTATE SPECIFIC ANTIGEN 300.5105 (A) ID Date Data Source [id number] 05/15/2019 12:39:00 PM EST [facility] Has Patient Fasted For The Past 12 Hour s? Y Has Patient Fasted For The Past 12 Hour s? Y Has Patient Fasted For The Past 12 Hour s? Y Has Patient Fasted For The Past 12 Hour s? Y Name Value Range Interpretation Code Description Data Madelyn rce(s) Supporting Document(s) WHITE BLOOD COUNT 5.55 10^3/uL 4.00-10.50 N [facility] ealth RED BLOOD COUNT 5.16 10^6/uL 4.30-5.80 N [facility] th HEMOGLOBIN 16.0 G/DL 13.0-17.5 N [place] [employer] HEMATOCRIT 47.0 % 41.0-53.0 [place] [employer] MCV 91.1 FL 80.0-100.0 [place] [employer] MCH 31.0 PG 27.0-34.0 [facility] 34.0 G/DL 32-36 [facility] R[facility] 12.6 % 11.5-14.5 [facility] PLATELET COUNT 277 10^3/uL 130-400 N [place] [employer] MPV 10.0 FL 8.7-13.2 [place] [employer] GRAN % (AUTO) 46.0 % 42.0-75.0 [place] [employer] LYMPH % (AUTO) 41.1 % 20.0-51.0 [place] [employer] MONO % (AUTO) 8.8 % 2.0-15.0 [place] [employer] EOS % (AUTO) 3.4 % 0.0-11.0 [place] [employer] BASO % (AUTO) 0.5 % 0.0-2.0 [place] [employer] IG % (AUTO) 0.2 % 1.00-5.00 [place] [employer] IG # (AUTO) 0.0 10^3/uL <0.5 [place] [employer] GRAN # (AUTO) 2.55 10^3/uL 1.50-6.50 N [place] [employer] LYMPH # (AUTO) 2.3 k/uL 1.0-5.0 [place] [employer] MONO # (AUTO) 0.49 k/uL 0.20-1.50 N [facility] EOS # (AUTO) 0.19 10^3/uL 0.00-1.10 [facility] BASO # (AUTO) 0.03 10^3/uL 0.00-0.20 N [facility] ID Date Data Source [id number] 05/15/2019 03:36:00 PM EST [facility] Has Patient Fasted For The Past 12 Hour s? Y Has Patient Fasted For The Past 12 Hour s? Y Has Patient Fasted For The Past 12 Hour s? Y Has Patient Fasted For The Past 12 Hour s? Y Name Value Range Interpretation Code Description Data Madelyn rce(s) Supporting Document(s) SODIUM 141 MEQ/L 135-145 N [facility] POTASSIUM 4.1 MEQ/L 3.5-5.3 [facility] CHLORIDE 106 MEQ/L 94-110 [facility] CARBON DIOXIDE 28 MEQ/L 22-33 [facility] ANION GAP 11 5-16 N [facility] BLOOD UREA NITRO 19 MG/DL 7-25 N [facility] CREATININE 1.1 MG/DL 0.6-1.4 [facility] GFR 69.5 ML/MIN [facility] Stage G2 - Mildly decreased kidney func tion GFR normal is >=90 The MDRD GFR calculation is considered valid between the ages of 18 and 75 years only. The GFR is an estimate of the Glomerular Filtration Rate. It is considered accurate in evaluating patients with Chronic Kidney Disease,but may underestimate kidney function in Healthy Patients. BUN/CREAT RATIO 17 8-36 N [facility] GLUCOSE 102 MG/DL 70-100 H [facility] CA 9.7 MG/DL 8.7-10.5 [facility] BILIRUBIN,TOTAL 0.7 MG/DL 0.1-1.3 N [facility] AST 20 U/L 5-40 N [facility] ALT 18 U/L 5-48 N [facility] ALKALINE PHOSPHATASE 123 U/L 40-140 N [facility] alth TOTAL PROTEIN 6.6 G/DL 5.9-8.3 N [facility] ALBUMIN 4.4 G/DL 3.0-5.1 [facility] GLOBULIN 2.2 G/DL 1.5-3.5 N [facility] ALB/GLOB RATIO 2.0 G/DL 1.0-2.7 [facility] ID Date Data Source [id number] 05/15/2019 03:36:00 PM [facility] Has Patient Fasted For The Past 12 Hour s? Y Has Patient Fasted For The Past 12 Hour s? Y Has Patient Fasted For The Past 12 Hour s? Y Has Patient Fasted For The Past 12 Hour s? Y Name Value Range Interpretation Code Description Data Madelyn rce(s) Supporting Document(s) TRIGLYCERIDES 101 MG/DL 45-150 N [facility] CHOLESTEROL 181 MG/DL 125-200 N [facility] LDL CHOLESTEROL 122 MG/DL 50-130 N [facility] HDL CHOLESTEROL 39 MG/DL 39-96 [facility] CHOL/HDL RATIO 4.6 0-4.9 [facility] ID Date Data Source [id number] 05/15/2019 03:36:00 PM [facility] Has Patient Fasted For The Past 12 Hour s? Y Has Patient Fasted For The Past 12 Hour s? Y Has Patient Fasted For The Past 12 Hour s? Y Has Patient Fasted For The Past 12 Hour s? Y Name Value Range Interpretation Code Description Data Madelyn rce(s) Supporting Document(s) Vitamin D,25-HYDROXY 27.9 ng/ml 30-100 [place] [facility] Vitamin D Status Range De ficiency <20 ng/ml Insufficiency 20-29.9 ng/ml Sufficiency 30-100 ng/ml Toxicity >100 ng/ml Patients should not be tested for 72 hours post fluorescein dye angiography. A false elevation of result may occur. ID Date Data Source [id number] 05/15/2019 03:36:00 PM [facility] Has Patient Fasted For The Past 12 Hour s? Y Has Patient Fasted For The Past 12 Hour s? Y Has Patient Fasted For The Past 12 Hour s? Y Has Patient Fasted For The Past 12 Hour s? Y Name Value Range Interpretation Code Description Data Madelyn rce(s) Supporting Document(s) TSH 1.887 uIU/ML 0.470-4.200 [facility] Patients should not be tested for 72 ho urs post fluorescein dye angiography. A false depression of result may occur. ID Date Data Source [id number] 05/15/2019 03:36:00 PM [facility] Has Patient Fasted For The Past 12 Hour s? Y Name Value Range Interpretation Code Description Data Madelyn rce(s) Supporting Document(s) PSA SCREEN 0.81 NG/ML 0.06-4.00 N [employer] Do not interpret PSA results as absolut e evidence of the presence or absence of [...] for the PSA is determined using the [employer] that utilizes a direct chemiluminometric technology. The result is not interchangeble with different assay methods. Procedure Social History Code Duration Value Status Description Data Source(s ) Smoking 06/03/2020 12:00:00 AM EST Smokes tobacco daily (findi ng) completed Smokes tobacco daily (finding) MICHAEL ([facility]) Smoking 05/28/2019 12:00:00 AM EST Smokes tobacco daily (findi ng) completed Smokes tobacco daily (finding) [facility] Smoking 05/15/2019 12:00:00 AM EST Smokes tobacco daily (findi ng) completed Smokes tobacco daily (finding) [facility] 05/02/1993 12:00:00 AM EST - 05/02/2019 12:00:00 AM EST Patient is a current smoker, smokes every day completed Patient is a current smoker, smokes every day [facility] ([facility], ) Vital Signs ID Date Data Source UNK Name Value Range Interpretation Code Description Data Source(s) PhenX - pain, abdominal - type and intensity protocol 0 0 [facility] PhenX - pain, abdominal - type and intensity protocol 0 0 [facility] pt unable to obtain vitals Diastolic blood pressure 80 mm[Hg] 80 mm[Hg] [facility] Systolic blood pressure 128 mm[Hg] 128 mm[Hg] G [place] ([facility]) Inhaled oxygen concentration 21 % 21 % MICHAEL ([facility]) Inhaled oxygen flow rate 0 L/min 0 L/min MICHAEL ([facility]) Oxygen saturation in Arterial blood by Pulse oximetry 97 % 97 % [place] ([facility]) PhenX - pain, abdominal - type and intensity protocol 0 0 MICHAEL ([facility]) Body surface area Derived from formula 2.26 m2 2.26 m2 MICHAEL ([facility]) Body mass index (BMI) [Ratio] 29.7 kg/m2 29.7 k g/m2 MIC[place]EL ([facility]) Body weight 225 [lb_av] 225 [lb_av] [facility] Body height 73 [in_i] 73 [in_i] [facility] Body temperature 96.3 [degF] 96.3 [degF] [place] ([facility]) Respiratory rate 18 /min 18 /min MICHAEL ([facility]) Heart rate rhythm 1 1 [place] ([facility]) Heart rate 75 /min 75 /min [place] ([facility]) Diastolic blood pressure 98 mm[Hg] 98 mm[Hg] MICHAEL ([facility]) Systolic blood pressure 138 mm[Hg] 138 mm[Hg] G [place] ([facility]) Body weight 106.596 kg 106.596 kg [facility] ([facility], ) Body mass index (BMI) [Ratio] 30.2 kg/m2 30.2 k g/m2 [facility] ([facility], ) Body weight 235.00 [lb_av] 235.00 [lb_av] MEDEN T ([facility], ) Body height 74 [in_i] 74 [in_i] [facility] ([facility], ) 6'2" Body temperature 98.2 [degF] 98.2 [degF] [facility] ([facility], ) Oxygen saturation in Arterial blood by Pulse oximetry 97 % 97 % [facility] ([facility], ) Room Air Heart rate 80 /min 80 /min [facility] ([facility], ) Diastolic blood pressure 80 mm[Hg] 80 mm[Hg] [facility] ([facility], ) Systolic blood pressure 124 mm[Hg] 124 mm[Hg] M EDENT ([facility]) Body weight 104.782 kg 104.782 kg [facility] ([facility]) Body mass index (BMI) [Ratio] 29.7 kg/m2 29.7 k g/m2 [facility] ([facility]) Body weight 231.00 [lb_av] 231.00 [lb_av] [facility] Body height 74 [in_i] 74 [in_i] [facility] ([facility]) 6'2" Oxygen saturation in Arterial blood by Pulse oximetry 98 % 98 % [facility] ([facility]) Heart rate 67 /min 67 /min [facility] ([facility]) Diastolic blood pressure 82 mm[Hg] 82 mm[Hg] [facility] ([facility]) Systolic blood pressure 118 mm[Hg] 118 mm[Hg] [facility] ([facility]) Body weight 102.967 kg 102.967 kg [facility] ([facility]) Body mass index (BMI) [Ratio] 28.4 kg/m2 28.4 k g/m2 [facility] ([facility]) Body weight 227.00 [lb_av] 227.00 [lb_av] [facility] Body height 75 [in_i] 75 [in_i] [facility] ([facility]) 6'3" Oxygen saturation in Arterial blood by Pulse oximetry 98 % 98 % [facility] ([facility]) Room Air Heart rate 83 /min 83 /min [facility] ([facility]) Diastolic blood pressure 90 mm[Hg] 90 mm[Hg] [facility] ([facility]) Systolic blood pressure 118 mm[Hg] 118 mm[Hg] [facility] ([facility]) Inhaled oxygen concentration 21 % 21 % [facility] Inhaled oxygen flow rate 0 L/min 0 L/min [facility] Oxygen saturation in Arterial blood by Pulse oximetry 94 % 94 % MICHAEL ([email or web address]) PhenX - pain, abdominal - type and intensity protocol 0 0 MICHAEL ([facility]) Body weight 227 [lb_av] 227 [lb_av] MICHAEL ([facility]) Body temperature 98.2 [degF] 98.2 [degF] [place] ([facility]) Respiratory rate 24 /min 24 /min [place] ([facility]) Heart rate rhythm 1 1 Y ([facility]) Heart rate 102 /min 102 /min [place] ([facility]) Diastolic blood pressure 98 mm[Hg] 98 mm[Hg] [place] ([facility]) Systolic blood pressure 136 mm[Hg] 136 mm[Hg] [facility] ([facility]) Inhaled oxygen concentration 21 % 21 % [place] ([facility]) Inhaled oxygen flow rate 0 L/min 0 L/min [place] ([facility]) Oxygen saturation in Arterial blood by Pulse oximetry 94 % 94 % [place] ([facility]) PhenX - pain, abdominal - type and intensity protocol 1 1 [place] ([facility]) Body surface area Derived from formula 2.26 m2 2.26 m2 [place] ([facility]) Body mass index (BMI) [Ratio] 29.7 kg/m2 29.7 k g/m2 [place] ([facility]) Body weight 225 [lb_av] 225 [lb_av] [place] ([facility]) Body height 73 [in_i] 73 [in_i] [place] ([facility]) Body temperature 96.2 [degF] 96.2 [degF] [place] ([facility]) Respiratory rate 21 /min 21 /min [place] ([facility]) Heart rate rhythm 1 1 ([facility]) Heart rate 73 /min 73 /min [place] ([facility]) Diastolic blood pressure 91 mm[Hg] 91 mm[Hg] [place] ([facility]) Systolic blood pressure 130 mm[Hg] 130 mm[Hg] [facility] ([facility]) Patient Treatment Plan of Care Planned Activity Planned Date Details Description Data Source (s) Gentamicin Sulfate (FDC) 3 MG/ML Ophthalmic Solution 021 12:00:00 AM [facility] ([facility]) Erythromycin 0.005 MG/MG Ophthalmic Ointment 05/20/2020 12:00:00 AM EST MICHAEL ([facility]) PARoxetine HCl 20 MG Oral Tablet 05/20/2020 12:00:00 AM EST MICHAEL ([facility]) PARoxetine HCl 20 MG Oral Tablet 05/05/2020 12:00:00 AM EST MICHAEL ([facility]) Paroxetine 20 MG Oral Tablet [Paxil] 05/10/2019 12:00:00 AM EST MICHAEL ([facility]) 24 HR Nicotine 0.583 MG/HR Transdermal Patch 06/09/2018 12:00:00 AM EST MICHAEL ([facility]) 24 HR Nicotine 0.292 MG/HR Transdermal Patch 06/09/2018 12:00:00 AM EST MICHAEL ([facility]) Nicotine 4 MG Oral Lozenge 05/09/2018 12:00:00 AM EST MICHAEL ([facility]) Paroxetine 20 MG Oral Tablet [Paxil] 05/09/2018 12:00:00 AM EST MICHAEL ([facility])
--- NOTE | 2020-06-24 23:50 | REPVR ---
PROCEDURE INFORMATION: Exam: CT Head Without Contrast Exam date and time: 06/24/2020 10:40 PM Age: 54 years old Clinical indication: Pain; Headache not specified TECHNIQUE: Imaging protocol: Computed tomography of the head without contrast. Radiation optimization: All CT scans at this facility use at least one of these dose optimization techniques: automated exposure control; mA and/or kV adjustment per patient size (includes targeted exams where dose is matched to clinical indication); or iterative reconstruction. COMPARISON: No relevant prior studies available. FINDINGS: Brain: Normal. No hemorrhage. Unremarkable white matter. No mass effect. Cerebral ventricles: No ventriculomegaly. Bones/joints: Unremarkable. No acute fracture. Paranasal sinuses: Visualized sinuses are unremarkable. No fluid levels. Mastoid air cells: Visualized mastoid air cells are well aerated. Soft tissues: Unremarkable. IMPRESSION: No acute intracranial abnormality. Electronically signed by: Shawn Quiñones On 06/24/2020 23:50:41 PM
[2020-06-25 01:08] LABS: HEMATOCRIT 45.8 % (42.0-52.0); HEMOGLOBIN 15.2 g/dl (13.5-17.5); MEAN CORPUSCULAR HEMOGLOBIN 30.8 pg (27.0-33.0); MEAN CORPUSCULAR HGB CONC 33.2 g/dl (32.0-36.5); MEAN CORPUSCULAR VOLUME 92.7 fl (80.0-96.0); PLATELET COUNT, AUTOMATED 298 10^3/uL (150-450); RED BLOOD COUNT 4.94 10^6/uL (4.30-6.10); WHITE BLOOD COUNT 6.1 10^3/uL (4.0-10.0)
[2020-06-25 01:27] LABS: ERYTHROCYTE SEDIMENTATION RATE 15 mm/hr (0-20)
[2020-06-25] MEDS ORDERED: KETOROLAC 30 MG/ML 1ML VIAL IV ONE (01:30)
[2020-06-25] MEDS ORDERED: METOCLOPRAMIDE INJ 10MG/2ML VIAL (J2765 PER 1) IV ONE (01:30)
[2020-06-25] MEDS ORDERED: NS 1,000 ML IV ONE (01:30)
[2020-06-25] MEDS ORDERED: diphenhydrAMINE 50MG/ML VIAL (J1200) IV ONE (01:30)
[2020-06-25] MEDS ORDERED: KETO10TAB PO (03:16)
[2020-06-25] MEDS ORDERED: AZEL1SPR3 NARES (03:16)
--- OUTSIDE RECORDS SUMMARY | 2020-06-25 03:50 | CCD ---
Author Author [facility] Organization [facility] Address Unknown Phone Unavailable Care Team Providers Care Computer Support Analyst Name Role Phone Shaben, E Mariluz IS SUPPORT ANALYST Unavailable Unavailable Shaben, E Mariluz IS SUPPORT ANALYST Unavailable Unavailable Shaben, E Mariluz IS SUPPORT ANALYST Unavailable Unavailable Shaben, E Mariluz IS SUPPORT ANALYST Unavailable Unavailable Shaben, E Mariluz IS SUPPORT ANALYST Unavailable Unavailable Shaben, E Mariluz IS SUPPORT ANALYST Unavailable Unavailable Shaben, E Mariluz IS SUPPORT ANALYST Unavailable Unavailable Shaben, E Mariluz IS SUPPORT ANALYST Unavailable Unavailable Shaben, E Mariluz IS SUPPORT ANALYST Unavailable Unavailable Shaben, E Mariluz IS SUPPORT ANALYST Unavailable Unavailable Shaben, E Mariluz IS SUPPORT ANALYST Unavailable Unavailable Shaben, E Mariluz IS SUPPORT ANALYST Unavailable Unavailable Shaben, E Mariluz IS SUPPORT ANALYST Unavailable Unavailable Shaben, E Mariluz IS SUPPORT ANALYST Unavailable Unavailable Shaben, E Mariluz IS SUPPORT ANALYST Unavailable Unavailable Shaben, E Mariluz IS SUPPORT ANALYST Unavailable Unavailable Shaben, E Mariluz IS SUPPORT ANALYST Unavailable Unavailable Shaben, E Mariluz IS SUPPORT ANALYST Unavailable Unavailable Shaben, E Mariluz IS SUPPORT ANALYST Unavailable Unavailable Shaben, E Mariluz IS SUPPORT ANALYST Unavailable Unavailable Shaben, E Mariluz IS SUPPORT ANALYST Unavailable Unavailable Shaben, E Mariluz IS SUPPORT ANALYST Unavailable Unavailable Shaben, E Mariluz IS SUPPORT ANALYST Unavailable Unavailable Shaben, E Mariluz IS SUPPORT ANALYST Unavailable Unavailable Trang Lewis Unavailable Unavailable Kovall, L Delilah PA Unavailable Unavailable Kovall, L Delilah PA Unavailable Unavailable Kovall, L Delilah PA Unavailable Unavailable Kovall, L Delilah PA Unavailable Unavailable Kovall, L Delilah PA Unavailable Unavailable Kovall, L Delilah PA Unavailable Unavailable Kovall, L Delilah PA Unavailable Unavailable Christiano LUNA, Bonita Unavailable [phone] Shaben, E Mariluz IS SUPPORT ANALYST Unavailable Unavailable Shaben, E Mariluz IS SUPPORT ANALYST Unavailable Unavailable Shaben, E Mariluz IS SUPPORT ANALYST Unavailable Unavailable Shaben, E Mariluz IS SUPPORT ANALYST Unavailable Unavailable Shaben, E Mariluz IS SUPPORT ANALYST Unavailable Unavailable Shaben, E Mariluz IS SUPPORT ANALYST Unavailable Unavailable Shaben, E Mariluz IS SUPPORT ANALYST Unavailable Unavailable Shaben, E Mariluz IS SUPPORT ANALYST Unavailable Unavailable Shaben, E Mariluz IS SUPPORT ANALYST Unavailable Unavailable Shaben, E Mariluz IS SUPPORT ANALYST Unavailable Unavailable Shaben, E Mariluz IS SUPPORT ANALYST Unavailable Unavailable Shaben, E Mariluz IS SUPPORT ANALYST Unavailable Unavailable Shaben, E Mariluz IS SUPPORT ANALYST Unavailable Unavailable Shaben, E Mariluz IS SUPPORT ANALYST Unavailable Unavailable Shaben, E Mariluz IS SUPPORT ANALYST Unavailable Unavailable Shaben, E Mariluz IS SUPPORT ANALYST Unavailable Unavailable Shaben, E Mariluz IS SUPPORT ANALYST Unavailable Unavailable Shaben, E Mariluz IS SUPPORT ANALYST Unavailable Unavailable Shaben, E Mariluz IS SUPPORT ANALYST Unavailable Unavailable Shaben, E Mariluz IS SUPPORT ANALYST Unavailable Unavailable Shaben, E Mariluz IS SUPPORT ANALYST Unavailable Unavailable Shaben, E Mariluz IS SUPPORT ANALYST Unavailable Unavailable Shaben, E Mariluz IS SUPPORT ANALYST Unavailable Unavailable Shaben, E Mariluz IS SUPPORT ANALYST Unavailable Unavailable NISHANT, L DELILAH WILDLIFE REFUGE SPECIALIST Unavailable Unavailable NISHANT, L DELILAH WILDLIFE REFUGE SPECIALIST Unavailable Unavailable NISHANT, L DELILAH WILDLIFE REFUGE SPECIALIST Unavailable Unavailable NISHANT, L DELILAH WILDLIFE REFUGE SPECIALIST Unavailable Unavailable NISHANT, L DELILAH WILDLIFE REFUGE SPECIALIST Unavailable Unavailable NISHANT, L DELILAH WILDLIFE REFUGE SPECIALIST Unavailable Unavailable NISHANT, L DELILAH WILDLIFE REFUGE SPECIALIST Unavailable Unavailable NISHANT, L DELILAH WILDLIFE REFUGE SPECIALIST Unavailable Unavailable NISHANT, L DELILAH WILDLIFE REFUGE SPECIALIST Unavailable Unavailable NISHANT, L DELILAH WILDLIFE REFUGE SPECIALIST Unavailable Unavailable NISHANT, L DELILAH WILDLIFE REFUGE SPECIALIST Unavailable Unavailable NISHANT, L DELILAH WILDLIFE REFUGE SPECIALIST Unavailable Unavailable NISHANT, L DELILAH WILDLIFE REFUGE SPECIALIST Unavailable Unavailable NISHANT, L DELILAH WILDLIFE REFUGE SPECIALIST Unavailable Unavailable NISHANT, L DELILAH WILDLIFE REFUGE SPECIALIST Unavailable Unavailable NISHANT, L DELILAH WILDLIFE REFUGE SPECIALIST Unavailable Unavailable NISHANT, L DELILAH WILDLIFE REFUGE SPECIALIST Unavailable Unavailable NISHANT, L DELILAH WILDLIFE REFUGE SPECIALIST Unavailable Unavailable NISHANT, L DELILAH WILDLIFE REFUGE SPECIALIST Unavailable Unavailable NISHANT, L DELILAH WILDLIFE REFUGE SPECIALIST Unavailable Unavailable NISHANT, L DELILAH WILDLIFE REFUGE SPECIALIST Unavailable Unavailable NISHANT, L DELILAH WILDLIFE REFUGE SPECIALIST Unavailable Unavailable NISHANT, L DELILAH WILDLIFE REFUGE SPECIALIST Unavailable Unavailable NISHANT, L DELILAH WILDLIFE REFUGE SPECIALIST Unavailable Unavailable NISHANT, L DELILAH WILDLIFE REFUGE SPECIALIST Unavailable Unavailable NISHANT, L DELILAH WILDLIFE REFUGE SPECIALIST Unavailable Unavailable NISHANT, L DELILAH WILDLIFE REFUGE SPECIALIST Unavailable Unavailable NISHANT, L DELILAH WILDLIFE REFUGE SPECIALIST Unavailable Unavailable NISHANT, L DELILAH WILDLIFE REFUGE SPECIALIST Unavailable Unavailable NISHANT, L DELILAH WILDLIFE REFUGE SPECIALIST Unavailable Unavailable NISHANT, L DELILAH WILDLIFE REFUGE SPECIALIST Unavailable Unavailable NISHANT, L DELILAH WILDLIFE REFUGE SPECIALIST Unavailable Unavailable NISHANT, L DELILAH WILDLIFE REFUGE SPECIALIST Unavailable Unavailable NISHANT, L DELILAH WILDLIFE REFUGE SPECIALIST Unavailable Unavailable NISHANT, L DELILAH WILDLIFE REFUGE SPECIALIST Unavailable Unavailable NISHANT, L DELILAH WILDLIFE REFUGE SPECIALIST Unavailable Unavailable NISHANT, L DELILAH WILDLIFE REFUGE SPECIALIST Unavailable Unavailable NISHANT, L DELILAH WILDLIFE REFUGE SPECIALIST Unavailable Unavailable NISHANT, L DELILAH WILDLIFE REFUGE SPECIALIST Unavailable Unavailable NISHANT, L DELILAH WILDLIFE REFUGE SPECIALIST Unavailable Unavailable NISHANT, L DELILAH WILDLIFE REFUGE SPECIALIST Unavailable Unavailable NISHANT, L DELILAH WILDLIFE REFUGE SPECIALIST Unavailable Unavailable NISHANT, L DELILAH WILDLIFE REFUGE SPECIALIST Unavailable Unavailable NISHANT, L DELILAH WILDLIFE REFUGE SPECIALIST Unavailable Unavailable NISHANT, L DELILAH WILDLIFE REFUGE SPECIALIST Unavailable Unavailable NISHANT, L DELILAH WILDLIFE REFUGE SPECIALIST Unavailable Unavailable NISHANT, L DELILAH WILDLIFE REFUGE SPECIALIST Unavailable Unavailable NISHANT, L DELILAH WILDLIFE REFUGE SPECIALIST Unavailable Unavailable NISHANT, L DELILAH WILDLIFE REFUGE SPECIALIST Unavailable Unavailable NISHANT, L DELILAH WILDLIFE REFUGE SPECIALIST Unavailable Unavailable NISHANT, L DELILAH WILDLIFE REFUGE SPECIALIST Unavailable Unavailable NISHANT, L DELILAH WILDLIFE REFUGE SPECIALIST Unavailable Unavailable NISHANT, L DELILAH WILDLIFE REFUGE SPECIALIST Unavailable Unavailable NISHANT, L DELILAH WILDLIFE REFUGE SPECIALIST Unavailable Unavailable NISHANT, L DELILAH WILDLIFE REFUGE SPECIALIST Unavailable Unavailable NISHANT, L DELILAH WILDLIFE REFUGE SPECIALIST Unavailable Unavailable NISHANT, L DELILAH WILDLIFE REFUGE SPECIALIST Unavailable Unavailable NISHANT, L DELILAH WILDLIFE REFUGE SPECIALIST Unavailable Unavailable NISHANT, L DELILAH WILDLIFE REFUGE SPECIALIST Unavailable Unavailable NISHANT, L DELILAH WILDLIFE REFUGE SPECIALIST Unavailable Unavailable NISHANT, L DELILAH WILDLIFE REFUGE SPECIALIST Unavailable Unavailable NISHANT, L DELILAH WILDLIFE REFUGE SPECIALIST Unavailable Unavailable NISHANT, L DELILAH WILDLIFE REFUGE SPECIALIST Unavailable Unavailable NISHANT, L DELILAH WILDLIFE REFUGE SPECIALIST Unavailable Unavailable NISHANT, L DELILAH WILDLIFE REFUGE SPECIALIST Unavailable Unavailable NISHANT, L DELILAH WILDLIFE REFUGE SPECIALIST Unavailable Unavailable NISHANT, L DELILAH WILDLIFE REFUGE SPECIALIST Unavailable Unavailable NISHANT, L DELILAH WILDLIFE REFUGE SPECIALIST Unavailable Unavailable NISHANT, L DELILAH WILDLIFE REFUGE SPECIALIST Unavailable Unavailable NISHANT, L DELILAH WILDLIFE REFUGE SPECIALIST Unavailable Unavailable Santana Torrse MD Unavailable Unavailable [...] Torres, Santana Pepe MD Unavailable Unavailable Torres, Satnana Pepe MD Unavailable Unavailable Torres, Santana Pepe [...] is protected by Article 27-F of the [place] State Public Health law. If you continue you may have access to information: Regarding HIV / AIDS; Provided by facilities licensed or operated by the [facility] Office of Mental Health; or Provided by the [facility] Office for People With Developmental Disabilities. If such information is present, then the following [facility] mandated warning applies: This information has been [...] law may result in a fine or longterm sentence or both. A general authorization for the release of medical or other information is NOT sufficient authorization for further disc losure. Advance Directives Directive Description Operational Assistant Military Communications Specialist Status Observation Descr iption Data Source(s) packet given Pt Bill of Rights, Priv Prac, Ad Dir completed packet given Pt Bill of Rights, Priv Prac, Ad Dir [facility] ([facility] Note: Pt declined AD packet Ebola Screening Performed completed Ebol a Screening Performed [facility] ([facility] Note: Within the last month, have you tr aveled outside of the [place]? -NO packet given Pt Bill of Rights, Priv Prac, Ad Dir completed packet given Pt Bill of Rights, Priv Prac, Ad Dir MICHAEL ([facility]) Note: Pt declined AD packet Ebola Screening Performed completed Ebol a Screening Performed [facility] ([facility]) Note: Within the last month, have you [...] Outpatient<td ID="encounterTypeDescripti onID0">Primary Care Telehealth FaceTime</td><td>Delilah Dillard NP</td><td>[facility]</td><td>06/03/2020</td><td>05/20/2020 3:40PM</td><td>4:07PM</td> <td><content ID="encounterDiagnosisID0-0">Conjunctivitis - Left Eye</content>, <content ID="encounterDiagnosisID0-1">Hypertension (Systemic)</content>, <content ID="encounterDiagnosisID0-2">Overweight</content>, <content ID="encounterDiagnosisID0-3">Nicotine Dependence</content></td> Attender: DELILAH DILLARD NP [facility] 05/20/2020 03:40:00 PM EST - 06/03/2020 04:07:48 PM EST Conjunctivitis - Left EyeHypertension (Systemic)OverweightNicotine Dependence MICHAEL ([facility]) Conjunctivitis - Left Eye Hypertension (Systemic) Overweight Nicotine Dependence Unknown<td ID="encounterTypeDescriptionI D1">[Patient Encounter]</td><td>Delilah Dillard NP</td><td></td><td>05/23/2020</td><td>05/20/2020 2:00PM</td><td>05/21/2020 11:59PM</td><td></td> Attender: DELILAH DILLARD NP 05/20/2020 02:00:00 PM EST - 05/21/2020 11:59:00 PM EST [facility] ([facility] Outpatient<td ID="encounterTypeDescripti onID2">Acute Follow-up Telehealth</td><td>Delilah Dillard NP</td><td>[facility]</td><td>05/21/2020</td><td>05/20/2020 1:30PM</td><td>2:02PM</td><td> <content ID="encounterDiagnosisID2-0">Assessment of Serum Prostate-specific Antigen (Psa) Elevated</content>, <content ID="encounterDiagnosisID2-1"> Assessment of Nonspecific Abnormal Results of Function Studies Liver</content></td> Attender: DELILAH DILLARD NP [facility] 05/20/2020 01:30:00 PM EST - 05/21/2020 02:02:08 PM EST Assessment of Nonspecific Abnormal Results of Function Studies LiverAssessment of Serum Prostate-specific Antigen (Psa) Elevated MICHAEL ([facility]) Assessment of Nonspecific Abnormal Resul ts of Function Studies Liver Assessment of Serum Prostate-specific An tigen (Psa) Elevated Outpatient Attender: DELILAH DILLARD NP 05/20/2020 09:34:0 0 AM EST lab [facility] lab Outpatient<td ID="encounterTypeDescripti onID3">AHR</td><td>Delilah Dillard NP</td><td>[facility]</td><td>05/20/2020</td><td>7:54AM</td><td>9:25AM</td><td><content ID="encounterDiagnosisID3-0">Overweight</content>, <content ID="encounterDiagnosisID3-1">Visit For: Routine Adult H&p with Abnormal Findings</content>, <content ID="encounterDiagnosisID3- 2">Hyperlipidemia</content>, <content ID="encounterDiagnosisID3-3">Nicotine Dependence</content>, <content ID="encounterDiagnosisID3-4">Anxiety Disorder Nos</content>, <content ID="encounterDiagnosisID3-5">Hypertension (Systemic)</content>, <content ID="encounterDiagnosisID3-6">Dermatitis</content> , <content ID="encounterDiagnosisID3-7">Conjunctivitis - Left Eye</content></td> Attender: DELILAH DILLARD NP [facility] 05/20/2020 07:54:00 AM EST - 05/20/2020 09:25:02 AM EST Conjunctivitis - Left EyeDermatitisHyper tension (Systemic)Visit For: Routine Adult H&p with Abnormal FindingsOverweightNicotine DependenceHyperlipidemiaAnxiety Disorder Nos MICHAEL ([facility]) Conjunctivitis - Left Eye Dermatitis Hypertension (Systemic) Visit For: Routine Adult H&p with Abnorm al Findings Overweight Nicotine Dependence Hyperlipidemia Anxiety Disorder Nos Outpatient Attender: Pepe Pérez/Amy/William/Troy fischer 10/02/2019 01:45:00 PM EDT [facility] ([facility], ) Outpatient Referrer: Pepe Torres [...] Pérez/Amy/William/R eindl 07/05/2019 02:00:00 PM EST [facility] ([facility] Outpatient Attender: Pepe Pérez/Amy/William/R eindl 06/11/2019 09:00:00 AM EST [facility] ([facility] Outpatient Referrer: Mariluz BHATT 06/07/2019 09:35:00 A M EST [facility] Outpatient Referrer: Mariluz Patel [facility] 06/07/2019 08:56:00 A M EST [facility] Outpatient<td ID="encounterTypeDescripti onID0">Follow-up Labs</td><td>Delilah Dillard NP</td><td>[facility]</td><td>05/28/2019</td><td><content ID="encounterDiagnosisID0-0">Assessment of Solitary Pulmonary Nodule</content></td> Attender: DELILAH DILLARD NP [facility] 0 04:18:00 PM EST - 05/28/2019 04:49:11 PM EST Assessment of Solitary Pulmonary Nodule [facility] ([facility]) Assessment of Solitary Pulmonary Nodule Unknown<td ID="encounterTypeDescriptionI D5">Chart Update</td><td>Delilah Dillard NP</td><td></td><td>01/23/2020</td><td>05/28/2019 12:58PM</td><td>05/28/2019 11:59PM</td><td></td> Attender: DELILAH DILLARD NP 05/28/2019 12:58:00 PM EST - 05/28/2019 11:59:00 PM EST MICHAEL ([facility]) Unknown<td ID="encounterTypeDescriptionI D4">Chart Prep</td><td>Bonita Alvarado RN</td><td></td><td>04/24/2020</td><td>05/28/2019 10:22AM</td><td>05/28/2019 11:59PM</td><td></td> Attender: Bonita Alvarado RN 05/28/2019 10:22:00 AM EST - 05/28/2019 11:59:00 PM EST MICHAEL ([facility]) Unknown<td ID="encounterTypeDescriptionI D1">Referral Order</td><td>Mariluz Patel WILDLIFE REFUGE SPECIALIST</td><td></td><td>05/25/2019</td><td></td> Attender: Mariluz FRANZP 05/25/2019 02:30:00 PM EST [...] NP 05/15/2019 08:39:0 0 AM EST Lab [facility] Outpatient<td ID="encounterTypeDescripti onID2">Establish Care</td><td>Delilah Dillard NP</td><td>[facility]</td><td>05/15/2019</td><td><content ID="encounterDiagnosisID2-0">Hyperlipidemia</content>, <content ID="encounterDiagnosisID2-1">Vitamin D Deficiency</content>, <content ID="encounterDiagnosisID2-2">Anxiety Disorder Nos</content>, <content ID="encounterDiagnosisID2-3">Nicotine Dependence</content>, <content ID="encounterDiagnosisID2-4">Overweight</content>, <content ID="encounterDiagnosisID2-5">Visit For: Routine Adult H&p Without Abnormal Findings</content></td> Attender: DELILAH DILLARD NP [facility] 020 07:56:00 AM EST - 05/15/2019 08:34:57 AM EST Visit For: Routine Adult H&p Without Abnormal FindingsVisit For: Routine Adult H&p Without Abnormal FindingsOverweightOverweightVitamin D DeficiencyVitamin D DeficiencyNicotine DependenceNicotine DependenceHyperlipidemiaHyperlipidemiaAnxiety Disorder NosAnxiety Disorder Nos [facility] ([facility] Visit For: Routine Adult H&p Without Abn ormal Findings Visit For: Routine Adult H&p Without Abn ormal Findings Overweight Overweight Vitamin D Deficiency Vitamin D Deficiency Nicotine Dependence Nicotine Dependence Hyperlipidemia Hyperlipidemia Anxiety Disorder Nos Anxiety Disorder Nos Outpatient Referrer: Delilah PALACIOS 05/10/2019 03:54:00 PM EST [facility] Medications Medication Brand [...] gentamic in 3 MG/ML Ophthalmic Solution [facility] PARoxetine HCl 20 MG Oral Tablet PARoxetine HCl 20 MG Oral T ablet 05/20/2020 12:00:00 AM EST 1 active paroxeti ne hydrochloride 20 MG Oral Tablet [facility] ([facility]) 5 mg/gram (0.5 %) 05/20/2020 12:00:00 AM EST ointment 3 APPLY 1/2 INCH RIBBON TO BOTH EYES FOUR TIMES A DAY FOR 7 DAYS APPLY 1/2 INCH RIBBON TO BOTH EYES FOUR TIMES A DAY FOR 7 DAYS SOLD: 05/26/2020 [facility] Erythromycin 0.005 MG/MG Ophthalmic Oint ment Erythromycin 5 MG/GM Ophthalmic Ointment Erythromycin 5 MG/GM Ophthalmic Ointment 05/20/2020 12:00:00 AM EST completed erythromycin 0.005 MG/ MG Ophthalmic Ointment [facility] ([facility] PARoxetine HCl 20 MG Oral Tablet PARoxetine HCl 20 MG Oral T ablet 05/05/2020 12:00:00 AM EST 1 aborted paroxetine hydrochloride 20 MG Oral Tablet [facility] ([facility]) 75 mg 06/24/2019 12:00:00 AM EST capsule 10 TAKE ONE CAPSULE BY MOUTH EVERY 12 HOURS TAKE ONE CAPSULE BY MOUTH EVERY 12 HOURS SOLD: 06/24/2019 [facility] 30 ACTUAT umeclidinium 0.0625 MG/ACTUAT / [...] PUFF BY MOUTH EVERY DAY SOLD: 06/13/2019 [facility] 30 ACTUAT umeclidinium 0.0625 MG/ACTUAT / vilanterol 0.025 MG/ACTUAT Dry Powder Inhaler [Anoro] Anoro Ellipta 06/11/2019 12:00:00 AM EST RESPIRA ANGELY completed [facility] ([facility], ) Paroxetine 20 MG Oral Tablet [Paxil] [...] type / Coverage type Policy ID Covered democrat ID Covered democrat's relationship to ayala Policy Ayala Plan Information BCBS [place] PPO 302/307 [id number] SP [id number] EXCELLUS BCBS B [id number] S [id number] BCBS of [facility] [place] Other 0 Self 0 SELF PAY BLUE CROSS [id number] SP [id number] 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 BCBS of [facility] [place] Other 0 Self 0 BCBS of [facility] [place] Other 0 Self 0 SELF PAY BLUE CROSS [id number] SP [id number] PACO CONSTRUCTION O [id number] S [id number] PACO CONSTRUCTION [id number] SP [id number] BCBS of [facility] [place] Other 0 Self 0 BC[place] PPO 302/307 [id number] SP [id number] BCBS/[employer] [id number] Self [id number] [id number] BCBS/[employer] [id number] Self VY [id number] BCBS of [facility] [place] Other 0 Self 0 SELF PAY BLUE CROSS [id number] SP [id number] BCBS of [facility] [place] Other 0 Self 0 BCBS of [facility] [place] Other 0 Self 0 ID IDENTIFICATION [id number] Other In surance [id number] [employer] Blue Cross [id number] Blue Cross/Shield [id number] BCBS of [facility] [place] Other 0 Self 0 BLUE CROSS [id number] SP [id number] [place]BS [place] PPO 302/307 [id number] SP [id number] BLUE CROSS [id number] SP [id number] BLUE CROSS [id number] SP [id number] SELF PAY P S [id number] Problems, Conditions, and Diagnoses Code Display Name Description Problem Type Effective Dates Data Source(s) 00678952 Hypertensive disorder, systemic arterial (disorder) Hypertension (Systemic) Problem 05/20/2020 08:41:00 AM Mobile Safe Case ([facility]) 492.8 Emphysema, unspecified Emphysema, unspecified Problem 01/23/2020 12:00:00 AM [facility] 793.11 Solitary Pulmonary Nodule Solitary Pulmonary Nodule Fi nding 05/28/2019 12:00:00 AM [facility] [id number] Solitary Pulmonary Nodule Solitary Pulmonary Nodule Fi nding 05/28/2019 12:00:00 AM [facility] 45094 Preventive Medicine Services Preventive Medicine Servi wilman Problem 05/15/2019 12:00:00 AM EST MICHAEL ([facility]) 89290 Preventive Medicine Services Preventive Medicine Servi wilman Problem 05/15/2019 12:00:00 AM EST MICHAEL ([facility]) 71195 Preventive Medicine Services Preventive Medicine Servi wilman Problem 05/15/2019 12:00:00 AM EST [facility] ([facility]) E78.5 Hyperlipidemia, unspecified E78.5 - Hyperlipidemia, un specified Diagnosis 05/20/2020 09:34:00 AM iRates Z12.5 Encounter for screening for malignant ne oplasm of prostate Z12.5 - Encounter for screening for malignant neoplasm of prostate Diagnosis 05/20/2020 09:34:00 AM iRates E66.3 Overweight E66.3 - Overweight Diagnosis 05/20/2020 09:34: 00 AM iRates L30.9 Dermatitis, unspecified L30.9 - Dermatitis, unspecifie d Diagnosis 05/20/2020 09:34:00 AM iRates Surgeries/Procedures Procedure Description Date Indications Data Source(s) Operation on bone (procedure) History of orthopedic fields rgery surgical repair of right thumb after an injury 05/20/2020 12:00:[address] ([facility]) Insertion of pleural tube drain (procedure) History of chest tube insertion 05/02/2009 s/p spontaneous pneumothorax 05/20/2020 12:00:00 AM EST [facility]EL ([facility]) Spirometry 06/11/2019 12:00:00 AM EST M [facility] ([facility], ) Aerosol Or Vapor Inhalations 06/11/2019 12:00:00 AM ES T [facility] ([facility], ) Results ID Date Data Source [id number] 05/20/2020 09:50:00 AM EST [facility] Name Value Range Interpretation Code Description Data Madelyn rce(s) Supporting Document(s) Reported Physicians See Note Reported Physicians MICHAEL ([facility]) Note: Reported Physicians:Ordering: Delilah Abbott LAttending: Delilah Dillard ID Date Data Source [id number] 05/20/2020 09:50:00 AM EST [facility] ([facility]) Name Value Range Interpretation Code Description Data Madelyn rce(s) Supporting Document(s) Thyrotropin [Units/volume] in Serum or Plasma by Detec tion limit <= 0.05 mIU/L 1.922 uIU/ML Normal TSH [facility] ([facility]) Note: Patients should not be tested for 72 hours post fluorescein dye angiography. A false depression of result may occur.Responsible Observer: TSH TSH 300.5500 (A) ID Date Data Source [id number] 05/20/2020 09:50:00 AM EST [facility] ([facility]) Name Value Range Interpretation Code Description Data Madelyn rce(s) Supporting Document(s) PSA SCREEN 7.92 NG/ML Above high normal PSA SCREEN [facility] ([facility]) Note: Do not interpret PSA results [...] for the PSA is determined using the [employer] System that utilizes a direct chemiluminometric technology. The result is not interchangeble with different assay methods.Responsible Observer: PSA PROSTATE SPECIFIC ANTIGEN 300.5105 (A) ID Date Data Source [id number] 05/20/2020 09:50:00 AM EST [facility] ([facility]) Name Value Range Interpretation Code Description Data Madelyn rce(s) Supporting Document(s) Deprecated Cholesterol.in LDL/Cholestero l.in HDL [Mass ratio] in Serum or Plasma 5.6 Above high normal CHOL/HDL RATIO [facility] ([facility]) Note: Responsible Observer: CHOL/HDL RAT IO CHOL/HDL RATIO 300.4700 (A) Cholesterol crystals [Presence] in Stone by Infrared spectroscop y 201 MG/DL Above high normal CHOLESTEROL [facility] ([facility] [facility]) Note: Responsible Observer: CHOL CHOLEST MARYANN 300.4350 (A) Cholesterol in LDL [Mass/volume] in Serum or Plasma by Direct as say 142 MG/DL Above high normal LDL CHOLESTEROL [facility] ([facility]) Note: Responsible Observer: LDL LDL CHOL ESTEROL 300.4400 (A) Cholesterol in HDL [Mass/volume] in Serum or Plasma ultracen trifugate 36 MG/DL Below low normal HDL CHOLESTEROL [place] ([facility]) Note: Responsible Observer: HDL HDL CHOL ESTEROL 300.4600 (A) Triglyceride [Mass/volume] in Serum or Plasma 116 MG/DL N ormal TRIGLYCERIDES [facility] ([facility]) Note: Responsible Observer: TRIG TRIGLYC ERIDES 300.4300 (A) ID Date Data Source [id number] 05/20/2020 09:50:00 AM EST [place] ([facility]) Name Value Range Interpretation Code Description Data Madelyn rce(s) Supporting Document(s) Albumin/Globulin [Mass Ratio] in Amniotic fluid 2.1 G/DL Normal ALB/GLOB RATIO [facility] ([facility]) Note: Responsible Observer: A/G RATIO AL B/GLOB RATIO 300.4100 (A) Alkaline phosphatase isoenzyme [Units/volume] in Serum or Plasma 141 U/L Above high normal ALKALINE PHOSPHATASE [facility] ([facility]) Note: Responsible Observer: ALK PHOS ALK LOREE PHOSPHATASE 300.3110 (A) Albumin [Mass/volume] in Synovial fluid 4.7 G/DL Normal ALBUMIN [facility] ([facility]) Note: Responsible Observer: ALB ALBUMIN 300.3900 (A) Alanine aminotransferase [Enzymatic activity/volume] in Seru m or Plasma 25 U/L Normal ALT [facility] ([facility]) Note: Responsible Observer: ALT/SGPT ALT 300.3100 (A) Aspartate aminotransferase [Enzymatic activity/volume] in Serum or Plasma 22 U/L Normal AST [facility] ([facility]) Note: Responsible Observer: AST/SGOT AST 300.3050 (A) Urea nitrogen/Creatinine [Mass Ratio] in Serum or Plasma 15 Normal BUN/CREAT RATIO [facility] ([facility]) Note: Responsible Observer: BUN/CREAT RA MATY BUN/CREAT RATIO 300.0450 (A) Bilirubin.total [Mass/volume] in Serum or Plasma 0.5 MG/DL Normal BILIRUBIN,TOTAL [place] ([facility]) Note: Responsible Observer: TOTAL BILI T OTAL BILIRUBIN 300.2700 (A) BLOOD UREA NITRO 17 MG/DL Normal BLOOD UREA NITRO [facility] ([facility]) Note: Responsible Observer: BUN BLOOD UR EA NITROGEN 300.0350 (A) CA 9.6 MG/DL Normal CA [facility] Note: Responsible Observer: CA CALCIUM 300.2200 (A) Chloride [Moles/volume] in Serum, Plasma or Blood 104 MEQ/L Normal CHLORIDE [facility] ([facility]) Note: Responsible Observer: CL CHLORIDE 300.0200 (A) Carbon dioxide, total [Moles/volume] in Serum or Plasma 28 MEQ/L Normal CARBON DIOXIDE [facility] ([facility]) Note: Responsible Observer: CO2 CARBON D IOXIDE 300.0250 (A) Creatine/Creatinine [Mass Ratio] in Urine 1.1 MG/DL Danielle l CREATININE [facility] ([facility]) Note: Responsible Observer: CREAT CREATI NINE 300.0400 (A) Anion gap in Blood 9 Normal ANION GAP [facility] ([facility]) Note: Responsible Observer: ANION GAP AN ION GAP 300.0300 (A) Globulin [Mass/volume] in Serum by calculation 2.2 G/DL Normal GLOBULIN [facility] ([facility]) Note: Responsible Observer: GLOB GLOBULI N 300.4050 (A) GFR 69.2 ML/MIN GFR [facility] ([facility]) Note: Stage G2 - Mildly decreased [...] Urine 98 MG/DL Normal GLUCOSE GR [facility] ([facility]) Note: Responsible Observer: GLU GLUCOSE 300.0500 (A) Potassium [Mass/volume] in Blood 4.5 MEQ/L Normal POT ASSIUM [facility] ([facility]) Note: Responsible Observer: K POTASSIUM 300.0150 (A) Sodium [Moles/volume] in Serum, Plasma or Blood 136 MEQ/L Normal SODIUM [facility] ([facility]) Note: Responsible Observer: NA SODIUM 3 00.0100 (A) Protein [Mass/volume] in Synovial fluid 6.9 G/DL Normal TOTAL PROTEIN [facility] ([facility]) Note: Responsible Observer: TP TOTAL PRO TEIN 300.3750 (A) ID Date Data Source [id number] 05/20/2020 09:50:00 AM EST [facility] ([facility]) Name Value Range Interpretation Code Description Data Madelyn rce(s) Supporting Document(s) BASO # (AUTO) 0.04 10\\^3/uL Normal BASO # (AUTO) [facility] ([facility]) Note: Responsible Observer: BASO # (AUTO ) BASO # (AUTO) 100.1500 (A) BASO % (AUTO) 0.6 % Normal BASO % (AUTO) MIC[facility]EL ([facility]) Note: Responsible Observer: BASO % (AUTO ) BASO % (AUTO) 100.1250 (A) EOS # (AUTO) 0.17 10\\^3/uL Normal EOS # (AUTO) [facility] ( [facility]) Note: Responsible Observer: EOS # (AUTO) EOS # (AUTO) 100.1450 (A) EOS % (AUTO) 2.7 % Normal EOS % (AUTO) MICHAEL ([facility]) Note: Responsible Observer: EOS % (AUTO) EOS % (AUTO) 100.1200 (A) GRAN # (AUTO) 3.22 10\\^3/uL Normal GRAN # (AUTO) [facility] ([facility]) Note: Responsible Observer: GRAN # (AUTO ) GRAN #(AUTO) 100.1325 (A) GRAN % (AUTO) 51.1 % Normal GRAN % (AUTO) MICHAEL ([facility]) Note: Responsible Observer: GRAN % (AUTO ) GRAN % (AUTO) 100.1000 (A) Hematocrit [Volume Fraction] of Blood by Automated count 47.6 % Normal HEMATOCRIT [facility] ([facility]) Note: Responsible Observer: HCT HEMATOCR IT 100.0400 (A) Hemoglobin [Mass/volume] in Blood 15.8 G/DL Normal HE MOGLOBIN [facility] ([facility]) Note: Responsible Observer: HGB HEMOGLOB IN 100.0300 (A) IG # (AUTO) 0.0 10\\^3/uL IG # (AUTO) [facility] ([facility]) Note: Responsible Observer: IG # (AUTO) IG # (AUTO) 100.1260 (A) IG % (AUTO) 0.3 % IG % (AUTO) [facility] ([facility]) Note: Responsible Observer: IG % (AUTO) IG % (AUTO) 100.1255 (A) LYMPH # (AUTO) 2.2 k/uL Normal LYMPH # (AUTO) [facility] ( [facility]) Note: Responsible Observer: LYMPH # (AUT O) LYMPH # (AUTO) 100.1350 (A) LYMPH % (AUTO) 35.3 % Normal LYMPH % (AUTO) [facility] ( [facility]) Note: Responsible Observer: LYMPH % (AUT O) LYMPH % (AUTO) 100.1100 (A) Erythrocyte mean corpuscular hemoglobin [Entitic mass] by Automated count 30.9 PG Normal MCH [facility] ([facility]) Note: Responsible Observer: MCH MCH 100 .0600 (A) Erythrocyte mean corpuscular hemoglobin concentration [Mass/volume] by Automated count 33.2 G/DL Normal MCHC [facility] ([facility]) Note: Responsible Observer: MCHC MCHC 1 00.0650 (A) Erythrocyte mean corpuscular volume [Entitic volume] by Auto mated count 93.2 FL Normal MCV [facility] ([facility]) Note: Responsible Observer: MCV MCV 100 .0550 (A) MONO # (AUTO) 0.63 k/uL Normal MONO # (AUTO) MIC[facility]EL ([facility]) Note: Responsible Observer: MONO # (AUTO ) MONO # (AUTO) 100.1400 (A) MONO % (AUTO) 10.0 % Normal MONO % (AUTO) MIC[facility]EL ([facility]) Note: Responsible Observer: MONO % (AUTO ) MONO% (AUTO) 100.1150 (A) MPV 9.3 FL Normal MPV MICHAEL ([facility]) Note: Responsible Observer: MPV MPV 100 .0950 (A) Platelets [#/volume] in Plasma by Automated count 355 10\\^3/uL Normal PLATELET COUNT [facility] ([facility]) Note: Responsible Observer: PLT PLATELET COUNT 100.0850 (A) Erythrocytes [#/volume] in Blood by Automated count 5.11 10\\^6/uL Normal RED BLOOD COUNT [facility] ([facility]) Note: Responsible Observer: RBC RED BLOO D COUNT 100.0250 (A) Erythrocyte distribution width [Ratio] by Automated count 12.5 % Normal RDW [facility] ([facility]) Note: Responsible Observer: RDW RDW 100 .0700 (A) Leukocytes [#/volume] in Blood by Automated count 6.31 10\\^3/uL Normal WHITE BLOOD COUNT [facility] ([facility]) Note: Responsible Observer: WBC WHITE BL OOD COUNT 100.0150 (A) ID Date Data Source [id number] 05/20/2020 09:50:00 AM EST [facility] ([facility]) Name Value Range Interpretation Code Description Data Madelyn rce(s) Supporting Document(s) Reported Physicians See Note Reported Physicians [facility] ([facility]) Note: Reported Physicians:Ordering: Delilah Abbott LAttending: Delilah Dillard ID Date Data Source [id number] 05/20/2020 09:50:00 AM EST [facility] ([facility]) Name Value Range Interpretation Code Description Data Madelyn rce(s) Supporting Document(s) SALLY,IFA,S Negative SALLY,IFA,S [place] ([facility]) Note: Negative <1:80 Borderline 1:80 Positive >1:80 Performed at: - [facility] [address] [id number] Business Records Manager: Hallie Ariza MD, Phone: [phone] Observer: SALLY,IFA,S SALLY,IFA,S [phone] (A) ID Date Data Source [id number] 05/20/2020 09:50:00 AM EST [place] ([facility]) Name Value Range Interpretation Code Description Data Madelyn rce(s) Supporting Document(s) Cyclic Citrullinat Pep IgG/IgA 12 units Cycli c Citrullinat Pep IgG/IgA [facility] ([facility]) Note: Negativ e <20 Weak positive 20 - 39 Moderate positive 40 - 59 Strong positive >59 Performed at: - [facility] [address] [id number] Business Records Manager: David Sanchez MD, Phone: [phone] Observer: Cyclic Cit Pep Cyclic Citrullinat Pep IgG/IgA [phone] (A) ID Date Data Source [id number] 05/20/2020 09:50:00 AM EST [place] ([facility]) Name Value Range Interpretation Code Description Data Madelyn rce(s) Supporting Document(s) C-REACTIVE PROTEIN 13 MG/L Above high normal C-REACTIVE PROTEIN [facility] ([facility]) Note: Responsible Observer: C-REACTIVE P ROT C-REACTIVE PROTEIN 300.3650 (A) ID Date Data Source [id number] 05/20/2020 09:50:00 AM EST [facility] ([facility]) Name Value Range Interpretation Code Description Data Madelyn rce(s) Supporting Document(s) URIC ACID 7.2 MG/DL Normal URIC ACID [facility] ([facility]) Note: Responsible Observer: URIC URIC AC ID 300.2150 (A) ID Date Data Source [id number] 05/20/2020 09:50:00 AM EST [facility] ([facility]) Name Value Range Interpretation Code Description Data Madelyn rce(s) Supporting Document(s) SED RATE 13 mm/hr Normal SED RATE [facility] ([facility]) Note: Responsible Observer: ESR SED RATE 100.6000 (A) ID Date Data Source [id number] 05/20/2020 09:50:00 AM EST [facility] ([facility]) Name Value Range Interpretation Code Description Data Madelyn rce(s) Supporting Document(s) Rheumatoid factor [Presence] in Serum by Latex agglutination NEGATI VE RHEUMATOID FACTOR [facility] ([facility]) Note: Test performed by latex agglutina tion methodologyResponsible Observer: RHEUMATOID FACT RHEUMATOID FACTOR 500.0600 (A) ID Date Data Source [id number] 05/20/2020 09:50:00 AM EST [facility] ([facility]) Name Value Range Interpretation Code Description Data Madelyn rce(s) Supporting Document(s) Reported Physicians See Note Reported Physicians [facility] ([facility]) Note: Reported Physicians:Ordering: Delilah Abbott LAttending: Delilah Dillard ID Date Data Source [id number] 05/20/2020 09:50:00 AM EST [place] ([facility]) Name Value Range Interpretation Code Description Data Madelyn rce(s) Supporting Document(s) Gamma glutamyl transferase [Enzymatic activity/volume] in Serum or Plasma 41 U/L Normal GAMMA GLUTAMYL TRANSPEPTIDASE [facility] ([facility]) Note: Responsible Observer: GGT GAMMA GL UTAMYL TRANSPEPTIDASE 300.3000 (A) ID Date Data Source [id number] 05/20/2020 02:15:00 PM [facility] Name Value Range Interpretation Code Description Data Madelyn rce(s) Supporting Document(s) RHEUMATOID FACTOR NEGATIVE NEGATIVE [facility] Test performed by latex agglutination m ethodology ID Date Data Source [id number] 05/20/2020 02:17:00 PM EST [facility] Name Value Range Interpretation Code Description Data Madelyn rce(s) Supporting Document(s) SED RATE 13 mm/hr 0-20 N [facility] ID Date Data Source [id number] 05/22/2020 08:15:00 AM EST [facility] Name Value Range Interpretation Code Description Data Madelyn rce(s) Supporting Document(s) URIC ACID 7.2 MG/DL 2.6-7.2 N [facility] ID Date Data Source [id number] 05/22/2020 09:24:00 AM EST [facility] Name Value Range Interpretation Code Description Data Madelyn rce(s) Supporting Document(s) Cyclic Citrullinat Pep IgG/IgA 12 units 0-19 [facility] Negative <20 Weak positive 20 - 39 Moderate positive 40 - 59 Strong positive >59 Performed at: - [facility] [id number] Business Records Manager: David Sanchez MD, Phone: [phone] ID Date Data Source [id number] 05/22/2020 08:15:00 AM EST [facility] Name Value Range Interpretation Code Description Data Madelyn rce(s) Supporting Document(s) C-REACTIVE PROTEIN 13 MG/L 0.00-5.00 [facility] ID Date Data Source [id number] 05/22/2020 09:24:00 AM EST [facility] Name Value Range Interpretation Code Description Data Madelyn rce(s) Supporting Document(s) SALLY,IFA,S Negative . [facility] Ne gative <1:80 Borderline 1:80 Positive > 1:80 Performed at: [facility] [id number] Business Records Manager: Hallie Ariza MD, Phone: [phone] ID Date Data Source [id number] 05/20/2020 02:17:00 PM EST [facility] Name Value Range Interpretation Code Description Data Madelyn rce(s) Supporting Document(s) WHITE BLOOD COUNT 6.31 10^3/uL 4.00-10.50 N [facility]alth RED BLOOD COUNT 5.11 10^6/uL 4.30-5.80 [facility] HEMOGLOBIN 15.8 G/DL 13.0-17.5 [facility]EM[facility] 47.6 % 41.0-53.0 [facility] MCV 93.2 FL 80.0-100.0 [facility] MCH 30.9 PG 27.0-34.0 [facility] MCHC 33.2 G/DL 32-36 [facility] RDW 12.5 % 11.5-14.5 [facility] PLATELET COUNT 355 10^3/uL 130-400 [facility] MPV 9.3 FL 8.7-13.2 [facility] GRAN % (AUTO) 51.1 % 42.0-75.0 [facility] LYMPH % (AUTO) 35.3 % 20.0-51.0 [facility] MONO % (AUTO) 10.0 % 2.0-15.0 N [facility] EOS % (AUTO) 2.7 % 0.0-11.0 [facility] BASO % (AUTO) 0.6 % 0.0-2.0 [facility] IG % (AUTO) 0.3 % 1.00-5.00 [facility] IG # (AUTO) 0.0 10^3/uL <0.5 [facility] GRAN # (AUTO) 3.22 10^3/uL 1.50-6.50 [facility] LYMPH # (AUTO) 2.2 k/uL 1.0-5.0 [facility] MONO # (AUTO) 0.63 k/uL 0.20-1.50 [facility] EOS # (AUTO) 0.17 10^3/uL 0.00-1.10 [facility] BASO # (AUTO) 0.04 10^3/uL 0.00-0.20 [facility] ID Date Data Source [id number] 05/22/2020 08:15:00 AM [facility] Name Value Range Interpretation Code Description Data Madelyn rce(s) Supporting Document(s) SODIUM 136 MEQ/L 135-145 [facility] POTASSIUM 4.5 MEQ/L 3.5-5.3 [facility] CHLORIDE 104 MEQ/L 94-110 [facility] CARBON DIOXIDE 28 MEQ/L 22-33 [facility] ANION GAP 9 5-16 [facility] BLOOD UREA NITRO 17 MG/DL 7-25 N [facility] CREATININE 1.1 MG/DL 0.6-1.4 [facility] GFR 69.2 ML/MIN [facility] Stage G2 - Mildly decreased kidney func tion The GFR is an estimate of the Glomerular Filtration Rate. It is an aid to assess a patient's renal function. It is not a conclusive diagnosis of kidney disease. GFR normal is >=90 The MDRD GFR calculation is considered valid between the ages of 18 and 75 years only. BUN/CREAT RATIO 15 8-36 [facility] GLUCOSE 98 MG/DL 70-100 [facility] CA 9.6 MG/DL 8.7-10.5 [facility] BILIRUBIN,TOTAL 0.5 MG/DL 0.1-1.3 [facility] AST 22 U/L 5-40 N [facility] ALT 25 U/L 5-48 [facility] ALKALINE PHOSPHATASE 141 U/L 40-140 H [facility] alth TOTAL PROTEIN 6.9 G/DL 5.9-8.3 N [facility] ALBUMIN 4.7 G/DL 3.0-5.1 [facility] GLOBULIN 2.2 G/DL 1.5-3.5 [facility] ALB/GLOB RATIO 2.1 G/DL 1.0-3.0 N [facility] ID Date Data Source [id number] 05/22/2020 08:15:00 AM [facility] Name Value Range Interpretation Code Description Data Madelyn rce(s) Supporting Document(s) TRIGLYCERIDES 116 MG/DL 45-150 N [facility] CHOLESTEROL 201 MG/DL 125-200 H [facility] LDL CHOLESTEROL 142 MG/DL 50-130 H [facility] HDL CHOLESTEROL 36 MG/DL 39-96 L [facility] CHOL/HDL RATIO 5.6 0-4.9 H [facility] ID Date Data Source [id number] 05/22/2020 08:15:00 AM [facility] Name Value Range Interpretation Code Description Data Madelyn rce(s) Supporting Document(s) PSA SCREEN 7.92 NG/ML 0.06-4.00 [facility] Do not interpret PSA results as absolut [...] for the PSA is determined using the [employer] System that utilizes a direct chemiluminometric technology. The result is not interchangeble with different assay methods. ID Date Data Source [id number] 05/22/2020 08:15:00 AM [facility] Name Value Range Interpretation Code Description Data Madelyn rce(s) Supporting Document(s) TSH 1.922 uIU/ML 0.470-4.200 N [facility] Patients should not be tested for 70 ho urs post fluorescein dye angiography. A false depression of result may occur. ID Date Data Source [id number] 05/22/2020 08:15:00 AM [facility] Name Value Range Interpretation Code Description Data Madelyn rce(s) Supporting Document(s) GAMMA GLUTAMYL TRANSPEPTIDASE 41 U/L 5-90 N [facility] ID Date Data Source [id number] 03/29/2020 12:00:00 AM EST [facility] Name Value Range Interpretation Code Description Data Madelyn rce(s) Supporting Document(s) SARS coronavirus 2 RNA [Presence] in Res piratory specimen by MIKY with probe detection [facility] This lab was ordered by Jeimy Mercedes and reported by [employer]. ID Date Data Source [id number] 01/15/2020 12:00:00 AM EDT [facility] Pepe Torres MD Patient Name: FRANCE [id number] [facility] Date of : 1965[place] Date of Exam: 01/15/2020ALEX Mercedes [id number]#: Fax: [phone] EXAM: CT THORAX WITHOUT CONTRASTCLINICAL [...] CT findings as described above.Accredited by the [employer] in [place].ED Campbell/Estephanie you for referring FRANCE KAMINSKI to our office. Electronically Signed - VETO GUZMAN DO 01/16/20 16:35 Name Value Range Interpretation Code Description Data Madelyn rce(s) Supporting Document(s) ID Date Data Source [id number] 01/01/2020 02:57:00 PM EDT [facility] Name Value Range Interpretation Code Description Data Madelyn rce(s) Supporting Document(s) SARS-CoV-2 RdRp gene result [facility] This lab was ordered by Jeimy RAMON Maximino ellis and reported by Jeimy Mckeon. ID Date Data Source [id number] 09/14/2019 12:00:00 AM EDT [facility] Pepe Torres MD Patient Name: FRANCE [id number] [facility] Date of : 1965[place] Date of Exam: 09/14/2019ALEX Mercedes [id number]#: Fax: [phone] EXAM: CT THORAX WITHOUT CONTRASTCLINICAL [...] should be based on clinicalassessment.Accredited by the [employer] in [place].Veto Guzman, ED/sandracTmaricarmen you for referring FRANCE KAMINSKI to our office. Electronically Signed - VETO GUZMAN DO 09/14/19 13:18 Name Value Range Interpretation Code Description Data Madelyn rce(s) Supporting Document(s) ID Date Data Source [id number] 06/11/2019 11:05:00 AM EST [facility] ([facility]) Name Value Range Interpretation Code Description Data Madelyn rce(s) Supporting Document(s) Alt/SGPT 25 U/L 12-78 Normal (applies to non-numeric resul ts) [facility] ([facility]) awaiting fungal & connective tissue Ast/Sgot 18 U/L 7-37 Normal (applies to non-numeric resul ts) [facility] ([facility]) awaiting fungal & connective tissue Alkaline Phosphatase 130 U/L 45-117 Above high normal [facility] ([facility]) awaiting fungal & connective tissue Bilirubin,Total 0.4 mg/dL 0.2-1.0 Normal (applies to non-numeric results) [facility] ([facility]) awaiting fungal & connective tissue Total Protein 7.5 GM/DL 6.4-8.2 Normal (applies to non-numeric re sults) [facility] ([facility]) awaiting fungal & connective tissue Bilirubin,Direct 0.1 mg/dL 0.0-0.2 Normal (applies to non-numeric results) [facility] ([facility]) awaiting fungal & connective tissue Albumin 3.9 GM/DL 3.2-5.2 Normal (applies to non-numeric resul ts) [facility] ([facility]) awaiting fungal & connective tissue Albumin/Globulin Ratio 1.08 1.00-1.93 Normal (applies to non-numeric results) [facility] ([facility]) awaiting fungal & connective tissue ID Date Data Source [id number] 06/11/2019 11:05:00 AM EST [facility] ([facility]) Name Value Range Interpretation Code Description Data Madelyn rce(s) Supporting Document(s) Red Blood Count 5.16 10 4.30-6.10 Normal (applies to non-numeric results) [facility] ([facility]) awaiting fungal & connective tissue White Blood Count 6.4 10 4.0-10.0 Normal (applies to non-numeri c results) [facility] ([facility]) awaiting fungal & connective tissue Hemoglobin 16.2 g/dL 13.5-17.5 Normal (applies to non-numeric resul ts) [facility] ([facility]) awaiting fungal & connective tissue Mean Corpuscular Volume 94.2 fl 80.0-96.0 Normal ( applies to non-numeric results) [facility] ([facility]) awaiting fungal & connective tissue Hematocrit 48.6 % 42.0-52.0 Normal (applies to non-numeric resul ts) [facility] ([facility]) awaiting fungal & connective tissue Mean Corpuscular Hemoglobin 31.4 pg 27.0-33.0 Norm al (applies to non-numeric results) [facility] ([facility]) awaiting fungal & connective tissue Red Cell Distribution Width 13.1 % 11.5-14.5 Norm al (applies to non-numeric results) [facility] ([facility]) awaiting fungal & connective tissue Mean Corpuscular HGB Conc 33.3 g/dL 32.0-36.5 Normal (applies to non-numeric results) [facility] ([facility]) awaiting fungal & connective tissue Neutrophils % 50.2 % 36.0-66.0 Normal (applies to non-numeric re sults) [facility] ([facility]) awaiting fungal & connective tissue Lymph % 37.2 % 24.0-44.0 Normal (applies to non-numeric resul ts) [facility] ([facility]) awaiting fungal & connective tissue Platelet Count, Automated 312 10 150-450 Normal (applies to non-numeric results) [facility] ([facility]) awaiting fungal & connective tissue Eos % 2.8 % 0.0-3.0 Normal (applies to non-numeric resul ts) [facility] ([facility]) awaiting fungal & connective tissue Gulf % 8.9 % 0.0-5.0 Above high normal [facility] ([facility]) awaiting fungal & connective tissue Immature Granulocyte % 0.3 % 0-3.0 Normal (applies to non-n umeric results) [facility] [facility] ([facility]) awaiting fungal & connective tissue Nucleated Red Blood Cell % 0.0 % 0-0 Normal (applies to n on-numeric results) [facility] ([facility]) awaiting fungal & connective tissue Baso % 0.6 % 0.0-1.0 Normal (applies to non-numeric resul ts) [facility] ([facility]) awaiting fungal & connective tissue Lymph # 2.4 10 1.5-5.0 Normal (applies to non-numeric resul ts) [facility] ([facility]) awaiting fungal & connective tissue Neutrophils # 3.2 10 1.5-8.5 Normal (applies to non-numeric re sults) [facility] ([facility]) awaiting fungal & connective tissue Gulf # 0.6 10 0.0-0.8 Normal (applies to non-numeric resul ts) [facility] ([facility]) awaiting fungal & connective tissue Baso # 0.0 10 0.0-0.2 Normal (applies to non-numeric resul ts) [facility] ([facility]) awaiting fungal & connective tissue Eos # 0.2 10 0.0-0.5 Normal (applies to non-numeric resul ts) [facility] ([facility]) awaiting fungal & connective tissue ID Date Data Source [id number] 06/11/2019 11:05:00 AM EST [facility] ([facility]) Name Value Range Interpretation Code Description Data Madelyn rce(s) Supporting Document(s) Angiotensin converting enzyme [Enzymatic activity/volu me] in Serum or Plasma 33 U/L 14-82 Normal (applies to non-numeric results) [facility] ([facility]) awaiting fungal & connective tissue Calcium [Mass/volume] in Serum or Plasma 9.1 mg/dL 8.5-10. 1 Normal (applies to non-numeric results) [facility] ([facility]) awaiting fungal & connective tissue ID Date Data Source [id number] 06/11/2019 11:05:00 AM EST [facility] ([facility]) Name Value Range Interpretation Code Description Data Madelyn rce(s) Supporting Document(s) Aspergillus Fumigatus Natasha Laboratory test result Normal (applies to non- numeric results) [facility] ([facility]) awaiting fungal & connective tissue Aspergillus Niger Natasha Laboratory test result Nor mal (applies to non-numeric results) [facility] ([facility]) awaiting fungal & connective tissue Aspergillus Flavus Natasha Laboratory test result No rmal (applies to non-numeric results) [facility] ([facility]) awaiting fungal & connective tissue ID Date Data Source [id number] 06/11/2019 11:05:00 AM [facility] ([facility]) Name Value Range Interpretation Code Description Data Madelyn rce(s) Supporting Document(s) Histoplasmosis Antibody Laboratory test result N ormal (applies to non-numeric results) [facility] ([facility]) awaiting fungal & connective tissue Cryptococcus sp Ag [Presence] in Serum by Immunoassay Laboratory test result Normal (applies to non-numeric results) [facility] ([facility]) awaiting fungal & connective tissue Coccidioides sp Ab [Units/volume] in Serum 0.6 IV Normal (applies to non- numeric results) [facility] ([facility]) awaiting fungal & connective tissue Blastomyces Antibody Level Laboratory test result Normal (applies to non- numeric results) [facility] ([facility]) awaiting fungal & connective tissue ID Date Data Source [id number] 06/11/2019 11:05:00 AM EST [facility] ([facility]) Name Value Range Interpretation Code Description Data Madelyn rce(s) Supporting Document(s) Aspergillus Fumigatus AB Laboratory test result Normal (applies to non-numeric results) [facility] ([facility]) awaiting fungal & connective tissue Aureobasidium Pullulans Laboratory test result N ormal (applies to non-numeric results) [facility] ([facility]) awaiting fungal & connective tissue Micropolyspora Faeni AB Laboratory test result N ormal (applies to non-numeric results) [facility] ([facility]) awaiting fungal & connective tissue Franklin Serum AB Laboratory test result Normal (a pplies to non-numeric results) [facility] ([facility]) awaiting fungal & connective tissue Thermoactinomyces Sacchari Laboratory test result Normal (applies to non- numeric results) [facility] ([facility]) awaiting fungal & connective tissue Thermoactinomyces Vulgaris Laboratory test result Normal (applies to non- numeric results) [facility] ([facility]) awaiting fungal & connective tissue ID Date Data Source [id number] 06/11/2019 11:05:00 AM EST [facility] ([facility]) Name Value Range Interpretation Code Description Data Madelyn rce(s) Supporting Document(s) Perinuclear AB Anca-P Laboratory test result Nor mal (applies to non-numeric results) [facility]) awaiting fungal & connective tissue Anca-Atypical Laboratory test result Normal (applies t o non-numeric results) [facility]) awaiting fungal & connective tissue Cytoplasmic Neutrop AB Anca-C Laboratory test result Normal (applies to non- numeric results) [facility] ([facility]) awaiting fungal & connective tissue ID Date Data Source [id number] 06/11/2019 11:05:00 AM EST [facility] ([facility]) Name Value Range Interpretation Code Description Data Madelyn rce(s) Supporting Document(s) Laboratory test finding (navigational concept) Laboratory test r esult Normal (applies to non-numeric results) [facility] ([place], [place]) awaiting fungal & connective tissue ID Date Data Source [id number] 06/11/2019 11:05:00 AM EST [facility] ([facility]) Name Value Range Interpretation Code Description Data Madelyn rce(s) Supporting Document(s) [employer] Antibodies 0.2 AI 0.0-0.9 Normal (applies to non-numeric r esults) [facility] ([facility]) awaiting fungal & connective tissue Antinuclear Antibodies Direct Laboratory test result Normal (applies to non- numeric results) [facility]) awaiting fungal & connective tissue Sjogren's Anti SS-A Laboratory test result 0.0-0.9 Danielle l (applies to non- numeric results) [facility] ([facility]) awaiting fungal & connective tissue Sjogren's Anti SS-B Laboratory test result 0.0-0.9 Danielle l (applies to non- numeric results) [facility] ([facility]) awaiting fungal & connective tissue Aguilar Antibodies Laboratory test result 0.0-0.9 Normal ( applies to non-numeric results) [facility] ([facility]) awaiting fungal & connective tissue ID Date Data Source [id number] 06/11/2019 11:05:00 AM EST [facility] ([facility]) Name Value Range Interpretation Code Description Data Madelyn rce(s) Supporting Document(s) Erythrocyte sedimentation rate by Westergren method 9 mm/hr 0-20 Normal (applies to non-numeric results) [facility] ([facility]) awaiting fungal & connective tissue ID Date Data Source [id number] 06/08/2019 12:00:00 AM EST [facility] Mariluz Patel Np Patient Name: SARA KAMINSKI Date of : 1965[place] [address] Date of Exam: 06/08/2019PH#: Fax: [phone] EXAM: CT THORAX WITH CONTRASTCLINICAL INFORMATION: Lung nodule.Comparison screening CT chest 05/24/19, CT abdomen and pelvis 04/14/16 [facility].Low dose [address] scanning of the chest was obtained using 3 mmincrements after the administration of intravenous contrast andreconstructed in both coronal and sagittal scan planes. 75 cc of Volzpfq780 was administered intravenously.In the region of the [...] There isdiffuse interstitial fibrotic scarring of a btgl-rx-jyegxmnc degree.Subpleural bullous change is seen to a hekr-nz-gbdjmsbe extent primarily inboth upper lobes. Calcified granuloma [...] theright lower lobe. No adenopathy.Accredited by the [employer] in [place].Larry Briseno, JOSE ANGEL/Estephanie you for referring FRANCE KAMINSKI to our office. Electronically Signed - LARRY BRISENO MD 06/08/19 15:52 Name Value Range Interpretation Code Description Data Madelyn rce(s) Supporting Document(s) ID Date Data Source [id number] 05/24/2019 12:00:00 AM EST [facility] Delilah Dillard Np Patient Name: [facility]INSKI [facility] 1965[facility] [place] [address] Date of Exam: 05/24/2019PH#: Fax: [phone] EXAM: [...] the time of the scan.Accredited by the [employer] in [place].Sotero Dowd, WEN/Estephanie you for referring FRANCE KAMINSKI to our office. Electronically Signed - SOTERO DOWD MD 05/25/19 12:30 Name Value Range Interpretation Code Description Data Madelyn rce(s) Supporting Document(s) ID Date Data Source [id number] 05/15/2019 08:55:00 AM EST [facility] ([facility]) Name Value Range Interpretation Code Description Data Madelyn rce(s) Supporting Document(s) Reported Physicians See Note Reported Physicians [facility] ([facility]) Note: Reported Physicians:Ordering: Delilah Abbott LAttending: Delilah Dillard ID Date Data Source [id number] 05/15/2019 08:55:00 AM EST [facility] ([facility]) Name Value Range Interpretation Code Description Data Madelyn rce(s) Supporting Document(s) Thyrotropin [Units/volume] in Serum or Plasma by Detec tion limit <= 0.05 mIU/L 1.887 uIU/ML Normal TSH [facility] ([facility]) Note: Patients should not be tested for 72 hours post fluorescein dye angiography. A false depression of result may occur.Responsible Observer: TSH TSH 300.5500 (A) ID Date Data Source [id number] 05/15/2019 08:55:00 AM EST [employer] ([facility]) Name Value Range Interpretation Code Description Data Madelyn rce(s) Supporting Document(s) Calcidiol [Mass/volume] in Serum or Plasma 27.9 ng/ml Below low normal Vitamin D,25-HYDROXY [facility] ([facility]) Note: Vitamin D Status Rang e Deficiency <20 ng/ml Insufficiency 20-29.9 ng/ml Sufficiency 30-100 ng/ml Toxicity >100 ng/ml Patients should not be tested for 72 hours post fluorescein dye angiography. A false elevation of result may occur.Responsible Observer: Vitamin D Vitamin D,25-Hydroxy 300.5230 (A) ID Date Data Source [id number] 05/15/2019 08:55:00 AM EST [employer] ([facility]) Name Value Range Interpretation Code Description Data Madelyn rce(s) Supporting Document(s) Cholesterol crystals [Presence] in Stone by Infrared spectroscop y 181 MG/DL Normal CHOLESTEROL [facility] ([facility]) Note: Responsible Observer: CHOL CHOLEST MARYANN 300.4350 (A) Deprecated Cholesterol.in LDL/Cholestero l.in HDL [Mass ratio] in Serum or Plasma 4.6 Normal CHOL/HDL RATIO [facility] ([facility] ) Note: Responsible Observer: CHOL/HDL RAT IO CHOL/HDL RATIO 300.4700 (A) Triglyceride [Mass/volume] in Serum or Plasma 101 MG/DL N ormal TRIGLYCERIDES [facility] ([facility]) Note: Responsible Observer: TRIG TRIGLYC ERIDES 300.4300 (A) Cholesterol in HDL [Mass/volume] in Serum or Plasma ultracen trifugate 39 MG/DL Normal HDL CHOLESTEROL [facility] ([facility]) Note: Responsible Observer: HDL HDL CHOL ESTEROL 300.4600 (A) Cholesterol in LDL [Mass/volume] in Serum or Plasma by Direct as say 122 MG/DL Normal LDL CHOLESTEROL [facility] ([facility]) Note: Responsible Observer: LDL LDL CHOL ESTEROL 300.4400 (A) ID Date Data Source [id number] 05/15/2019 08:55:00 AM EST [employer] ([facility]) Name Value Range Interpretation Code Description Data Madelyn rce(s) Supporting Document(s) Albumin/Globulin [Mass Ratio] in Amniotic fluid 2.0 G/DL Normal ALB/GLOB RATIO [facility] ([facility]) Note: Responsible Observer: A/G RATIO AL B/GLOB RATIO 300.4100 (A) Alkaline phosphatase isoenzyme [Units/volume] in Serum or Plasma 123 U/L Normal ALKALINE PHOSPHATASE [facility] ([facility]) Note: Responsible Observer: ALK PHOS ALK LOREE PHOSPHATASE 300.3110 (A) Albumin [Mass/volume] in Synovial fluid 4.4 G/DL Normal ALBUMIN [facility] ([facility]) Note: Responsible Observer: ALB ALBUMIN 300.3900 (A) Alanine aminotransferase [Enzymatic activity/volume] in Seru m or Plasma 18 U/L Normal ALT [facility] ([facility]) Note: Responsible Observer: ALT/SGPT ALT 300.3100 (A) Aspartate aminotransferase [Enzymatic activity/volume] in Serum or Plasma 20 U/L Normal AST [facility] ([facility]) Note: Responsible Observer: AST/SGOT AST 300.3050 (A) Urea nitrogen/Creatinine [Mass Ratio] in Serum or Plasma 17 Normal BUN/CREAT RATIO [facility] ([facility]) Note: Responsible Observer: BUN/CREAT RA MATY BUN/CREAT RATIO 300.0450 (A) BLOOD UREA NITRO 19 MG/DL Normal BLOOD UREA NITRO [facility] ([facility]) Note: Responsible Observer: BUN BLOOD UR EA NITROGEN 300.0350 (A) Bilirubin.total [Mass/volume] in Serum or Plasma 0.7 MG/DL Normal BILIRUBIN,TOTAL [facility] ([facility]) Note: Responsible Observer: TOTAL BILI T OTAL BILIRUBIN 300.2700 (A) CA 9.7 MG/DL Normal CA [facility] ([facility]) Note: Responsible Observer: CA CALCIUM 300.2200 (A) Anion gap in Blood 11 Normal ANION GAP [facility] ([facility]) Note: Responsible Observer: ANION GAP AN ION GAP 300.0300 (A) Chloride [Moles/volume] in Serum, Plasma or Blood 106 MEQ/L Normal CHLORIDE [facility] ([facility]) Note: Responsible Observer: CL CHLORIDE 300.0200 (A) Carbon dioxide, total [Moles/volume] in Serum or Plasma 28 MEQ/L Normal CARBON DIOXIDE [facility] ([facility]) Note: Responsible Observer: CO2 CARBON D IOXIDE 300.0250 (A) Creatine/Creatinine [Mass Ratio] in Urine 1.1 MG/DL Danielle l CREATININE [facility] ([facility]) Note: Responsible Observer: CREAT CREATI NINE 300.0400 (A) Globulin [Mass/volume] in Serum by calculation 2.2 G/DL Normal GLOBULIN [facility] ([facility]) Note: Responsible Observer: GLOB GLOBULI N 300.4050 (A) Glucose [Presence] in Urine 102 MG/DL Above high normal G LUCOSE [facility] ([facility]) Note: Responsible Observer: GLU GLUCOSE 300.0500 (A) GFR 69.5 ML/MIN GFR [facility] ([facility]) Note: Stage G2 - Mildly decreased [...] fluid 6.6 G/DL Normal TOTAL PROTEIN [facility] ([facility]) Note: Responsible Observer: TP TOTAL PRO TEIN 300.3750 (A) Potassium [Mass/volume] in Blood 4.1 MEQ/L Normal POT ASSIUM [facility] ([facility]) Note: Responsible Observer: K POTASSIUM 300.0150 (A) Sodium [Moles/volume] in Serum, Plasma or Blood 141 MEQ/L Normal SODIUM [facility] ([facility]) Note: Responsible Observer: NA SODIUM 3 00.0100 (A) ID Date Data Source [id number] 05/15/2019 08:55:00 AM EST [facility] ([facility]) Name Value Range Interpretation Code Description Data Madelyn rce(s) Supporting Document(s) BASO % (AUTO) 0.5 % Normal BASO % (AUTO) [facility] ([facility]) Note: Responsible Observer: BASO % (AUTO ) BASO % (AUTO) 100.1250 (A) BASO # (AUTO) 0.03 10\\^3/uL Normal BASO # (AUTO) [facility] ([facility]) Note: Responsible Observer: BASO # (AUTO ) BASO # (AUTO) 100.1500 (A) EOS # (AUTO) 0.19 10\\^3/uL Normal EOS # (AUTO) [facility] ( [facility]) Note: Responsible Observer: EOS # (AUTO) EOS # (AUTO) 100.1450 (A) EOS % (AUTO) 3.4 % Normal EOS % (AUTO) [facility] ([facility]) Note: Responsible Observer: EOS % (AUTO) EOS % (AUTO) 100.1200 (A) Hematocrit [Volume Fraction] of Blood by Automated count 47.0 % Normal HEMATOCRIT [facility] ([facility]) Note: Responsible Observer: HCT HEMATOCR IT 100.0400 (A) GRAN % (AUTO) 46.0 % Normal GRAN % (AUTO) [facility] Note: Responsible Observer: GRAN % (AUTO ) GRAN % (AUTO) 100.1000 (A) GRAN # (AUTO) 2.55 10\\^3/uL Normal GRAN # (AUTO) [facility] ([facility]) Note: Responsible Observer: GRAN # (AUTO ) GRAN #(AUTO) 100.1325 (A) Hemoglobin [Mass/volume] in Blood 16.0 G/DL Normal HE MOGLOBIN [facility] ([facility]) Note: Responsible Observer: HGB HEMOGLOB IN 100.0300 (A) IG # (AUTO) 0.0 10\\^3/uL IG # (AUTO) [facility] ([facility]) Note: Responsible Observer: IG # (AUTO) IG # (AUTO) 100.1260 (A) LYMPH % (AUTO) 41.1 % Normal LYMPH % (AUTO) [facility] ( [facility]) Note: Responsible Observer: LYMPH % (AUT O) LYMPH % (AUTO) 100.1100 (A) IG % (AUTO) 0.2 % IG % (AUTO) MIC[facility] ([facility]) Note: Responsible Observer: IG % (AUTO) IG % (AUTO) 100.1255 (A) LYMPH # (AUTO) 2.3 k/uL Normal LYMPH # (AUTO) [facility] ( [facility]) Note: Responsible Observer: LYMPH # (AUT O) LYMPH # (AUTO) 100.1350 (A) Erythrocyte mean corpuscular hemoglobin [Entitic mass] by Automated count 31.0 PG Normal MCH [facility] ([facility]) Note: Responsible Observer: MCH MCH 100 .0600 (A) Erythrocyte mean corpuscular hemoglobin concentration [Mass/volume] by Automated count 34.0 G/DL Normal MCHC [facility] ([facility]) Note: Responsible Observer: MCHC MCHC 1 00.0650 (A) MONO # (AUTO) 0.49 k/uL Normal MONO # (AUTO) [facility] Note: Responsible Observer: MONO # (AUTO ) MONO # (AUTO) 100.1400 (A) Erythrocyte mean corpuscular volume [Entitic volume] by Auto mated count 91.1 FL Normal MCV [facility] ([facility]) Note: Responsible Observer: MCV MCV 100 .0550 (A) MONO % (AUTO) 8.8 % Normal MONO % (AUTO) [facility] Note: Responsible Observer: MONO % (AUTO ) MONO% (AUTO) 100.1150 (A) Erythrocytes [#/volume] in Blood by Automated count 5.16 10\\^6/uL Normal RED BLOOD COUNT [facility] ([facility]) Note: Responsible Observer: RBC RED BLOO D COUNT 100.0250 (A) MPV 10.0 FL Normal MPV [facility] ([facility]) Note: Responsible Observer: MPV MPV 100 .0950 (A) Platelets [#/volume] in Plasma by Automated count 277 10\\^3/uL Normal PLATELET COUNT [facility] ([facility]) Note: Responsible Observer: PLT PLATELET COUNT 100.0850 (A) Erythrocyte distribution width [Ratio] by Automated count 12.6 % Normal RDW [facility] ([facility]) Note: Responsible Observer: RDW RDW 100 .0700 (A) Leukocytes [#/volume] in Blood by Automated count 5.55 10\\^3/uL Normal WHITE BLOOD COUNT [facility] ([facility]) Note: Responsible Observer: WBC WHITE BL OOD COUNT 100.0150 (A) ID Date Data Source [id number] 05/15/2019 08:55:00 AM EST [facility] ([facility]) Name Value Range Interpretation Code Description Data Madelyn rce(s) Supporting Document(s) Reported Physicians See Note Reported Physicians [facility] ([facility]) Note: Reported Physicians:Ordering: Delilah Abbott LAttending: Delilah Dillard ID Date Data Source [id number] 05/15/2019 08:55:00 AM EST [facility] ([facility] Name Value Range Interpretation Code Description Data Madelyn rce(s) Supporting Document(s) PSA SCREEN 0.81 NG/ML Normal PSA SCREEN [facility] ([facility]) Note: Do not interpret PSA results [...] for the PSA is determined using the [employer] System that utilizes a direct chemiluminometric technology. The result is not interchangeble with different assay methods.Responsible Observer: PSA PROSTATE SPECIFIC ANTIGEN 300.5105 (A) ID Date Data Source [id number] 05/15/2019 12:39:00 PM EST [facility] Has Patient Fasted For The Past 12 Hour s? Y Has Patient Fasted For The Past 12 Hour s? Y Has Patient Fasted For The Past 12 Hour s? Y Has Patient Fasted For The Past 12 Hour s? Y Name Value Range Interpretation Code Description Data Madelyn rce(s) Supporting Document(s) WHITE BLOOD COUNT 5.55 10^3/uL 4.00-10.50 N [facility] RED BLOOD COUNT 5.16 10^6/uL 4.30-5.80 N [facility] th HEMOGLOBIN 16.0 G/DL 13.0-17.5 N [facility] HEMATOCRIT 47.0 % 41.0-53.0 [facility] MCV 91.1 FL 80.0-100.0 [facility] MCH 31.0 PG 27.0-34.0 [facility] 34.0 G/DL 32-36 [facility] R[facility] 12.6 % 11.5-14.5 [facility] PLATELET COUNT 277 10^3/uL 130-400 [facility] MPV 10.0 FL 8.7-13.2 N [facility] GRAN % (AUTO) 46.0 % 42.0-75.0 [facility] LYMPH % (AUTO) 41.1 % 20.0-51.0 N [facility] MONO % (AUTO) 8.8 % 2.0-15.0 [facility] EOS % (AUTO) 3.4 % 0.0-11.0 [facility] BASO % (AUTO) 0.5 % 0.0-2.0 [facility] IG % (AUTO) 0.2 % 1.00-5.00 [facility] IG # (AUTO) 0.0 10^3/uL <0.5 [facility] GRAN # (AUTO) 2.55 10^3/uL 1.50-6.50 [facility] LYMPH # (AUTO) 2.3 k/uL 1.0-5.0 [facility] MONO # (AUTO) 0.49 k/uL 0.20-1.50 N [facility] EOS # (AUTO) 0.19 10^3/uL 0.00-1.10 [facility] BASO # (AUTO) 0.03 10^3/uL 0.00-0.20 N [facility] ID Date Data Source [id number] 05/15/2019 03:36:00 PM EST [facility] Has Patient Fasted For The Past 12 Hour s? Y Has Patient Fasted For The Past 12 Hour s? Y Has Patient Fasted For The Past 12 Hour s? Y Has Patient Fasted For The Past 12 Hour s? Y Name Value Range Interpretation Code Description Data Madelyn rce(s) Supporting Document(s) SODIUM 141 MEQ/L 135-145 N [facility] POTASSIUM 4.1 MEQ/L 3.5-5.3 [facility] CHLORIDE 106 MEQ/L 94-110 [facility] CARBON DIOXIDE 28 MEQ/L 22-33 [facility] ANION GAP 11 5-16 N [facility] BLOOD UREA NITRO 19 MG/DL 7-25 N [facility] CREATININE 1.1 MG/DL 0.6-1.4 [facility] GFR 69.5 ML/MIN [facility] Stage G2 - Mildly decreased kidney func tion GFR normal is >=90 The MDRD GFR calculation is considered valid between the ages of 18 and 75 years only. The GFR is an estimate of the Glomerular Filtration Rate. It is considered accurate in evaluating patients with Chronic Kidney Disease,but may underestimate kidney function in Healthy Patients. BUN/CREAT RATIO 17 8-36 N [facility] GLUCOSE 102 MG/DL 70-100 H [facility] CA 9.7 MG/DL 8.7-10.5 [facility] BILIRUBIN,TOTAL 0.7 MG/DL 0.1-1.3 N [facility] AST 20 U/L 5-40 N [facility] ALT 18 U/L 5-48 N [facility] ALKALINE PHOSPHATASE 123 U/L 40-140 N [facility] TOTAL PROTEIN 6.6 G/DL 5.9-8.3 N [facility] ALBUMIN 4.4 G/DL 3.0-5.1 [facility] GLOBULIN 2.2 G/DL 1.5-3.5 N [facility] ALB/GLOB RATIO 2.0 G/DL 1.0-2.7 [facility] ID Date Data Source [id number] 05/15/2019 03:36:00 PM [facility] Has Patient Fasted For The Past 12 Hour s? Y Has Patient Fasted For The Past 12 Hour s? Y Has Patient Fasted For The Past 12 Hour s? Y Has Patient Fasted For The Past 12 Hour s? Y Name Value Range Interpretation Code Description Data Madelyn rce(s) Supporting Document(s) TRIGLYCERIDES 101 MG/DL 45-150 [facility] CHOLESTEROL 181 MG/DL 125-200 [facility] LDL CHOLESTEROL 122 MG/DL 50-130 [facility] HDL CHOLESTEROL 39 MG/DL 39-96 [facility] CHOL/HDL RATIO 4.6 0-4.9 [facility] ID Date Data Source [id number] 05/15/2019 03:36:00 PM [facility] Has Patient Fasted For The Past 12 Hour s? Y Has Patient Fasted For The Past 12 Hour s? Y Has Patient Fasted For The Past 12 Hour s? Y Has Patient Fasted For The Past 12 Hour s? Y Name Value Range Interpretation Code Description Data Madelyn rce(s) Supporting Document(s) Vitamin D,25-HYDROXY 27.9 ng/ml 30-100 [facility] Vitamin D Status Range De ficiency <20 ng/ml Insufficiency 20-29.9 ng/ml Sufficiency 30-100 ng/ml Toxicity >100 ng/ml Patients should not be tested for 72 hours post fluorescein dye angiography. A false elevation of result may occur. ID Date Data Source [id number] 05/15/2019 03:36:00 PM [facility] Has Patient Fasted For The Past 12 Hour s? Y Has Patient Fasted For The Past 12 Hour s? Y Has Patient Fasted For The Past 12 Hour s? Y Has Patient Fasted For The Past 12 Hour s? Y Name Value Range Interpretation Code Description Data Madelyn rce(s) Supporting Document(s) TSH 1.887 uIU/ML 0.470-4.200 [facility] Patients should not be tested for 72 ho urs post fluorescein dye angiography. A false depression of result may occur. ID Date Data Source [id number] 05/15/2019 03:36:00 PM [facility] For The Past 12 Hour s? Y Name Value Range Interpretation Code Description Data Madelyn rce(s) Supporting Document(s) PSA SCREEN 0.81 NG/ML 0.06-4.00 N [facility] Do not interpret PSA results as absolut [...] for the PSA is determined using the [employer] System that utilizes a direct chemiluminometric technology. The result is not interchangeble with different assay methods. Procedure Social History Code Duration Value Status Description Data Source(s ) Smoking 06/03/2020 12:00:00 AM EST Smokes tobacco daily (findi ng) completed Smokes tobacco daily (finding) MICHAEL ([facility]) Smoking 05/28/2019 12:00:00 AM EST Smokes tobacco daily (findi ng) completed Smokes tobacco daily (finding) [facility] Smoking 05/15/2019 12:00:00 AM EST Smokes tobacco daily (findi ng) completed Smokes tobacco daily (finding) [facility]HAEL [facility] 05/02/1993 12:00:00 AM EST - 05/02/2019 12:00:00 AM EST Patient is a current smoker, smokes every day completed Patient is a current smoker, smokes every day MEDENT ([facility], ) Vital Signs ID Date Data Source UNK Name Value Range Interpretation Code Description Data Source(s) PhenX - pain, abdominal - type and intensity protocol 0 0 [facility]EL [facility] PhenX - pain, abdominal - type and intensity protocol 0 0 MICHAEL [facility] pt unable to obtain vitals Diastolic blood pressure 80 mm[Hg] 80 mm[Hg] MICHAEL ([facility] Systolic blood pressure 128 mm[Hg] 128 mm[Hg] G REENWAY ([facility]) Inhaled oxygen concentration 21 % 21 % MICHAEL ([facility]) Inhaled oxygen flow rate 0 L/min 0 L/min MICHAEL ([facility]) Oxygen saturation in Arterial blood by Pulse oximetry 97 % 97 % [place] ([facility]) PhenX - pain, abdominal - type and intensity protocol 0 0 MICHAEL ([facility]) Body surface area Derived from formula 2.26 m2 2.26 m2 MICHAEL ([facility]) Body mass index (BMI) [Ratio] 29.7 kg/m2 29.7 k g/m2 MICHAEL ([facility]) Body weight 225 [lb_av] 225 [lb_av] MICHAEL [facility] Body height 73 [in_i] 73 [in_i] MICHAEL ([facility]) Body temperature 96.3 [degF] 96.3 [degF] [place] ([facility]) Respiratory rate 18 /min 18 /min MICHAEL ([facility]) Heart rate rhythm 1 1 [place] Y ([facility]) Heart rate 75 /min 75 /min [place]AY ([facility]) Diastolic blood pressure 98 mm[Hg] 98 mm[Hg] MICHAEL ([facility]) Systolic blood pressure 138 mm[Hg] 138 mm[Hg] G REENWAY ([facility]) Body weight 106.596 kg 106.596 kg [facility] ([facility], ) Body mass index (BMI) [Ratio] 30.2 kg/m2 30.2 k g/m2 [facility] ([facility], ) Body weight 235.00 [lb_av] 235.00 [lb_av] MEDEN T ([facility], ) Body height 74 [in_i] 74 [in_i] [facility] ([facility], ) 6'2" Body temperature 98.2 [degF] 98.2 [degF] [facility] ([facility], ) Oxygen saturation in Arterial blood by Pulse oximetry 97 % 97 % [facility] ([facility], ) Room Air Heart rate 80 /min 80 /min [facility] ([facility], ) Diastolic blood pressure 80 mm[Hg] 80 mm[Hg] [facility] ([facility], ) Systolic blood pressure 124 mm[Hg] 124 mm[Hg] M EDENT ([facility]) Body weight 104.782 kg 104.782 kg [facility] ([facility]) Body mass index (BMI) [Ratio] 29.7 kg/m2 29.7 k g/m2 [facility] ([facility]) Body weight 231.00 [lb_av] 231.00 [lb_av] [facility] Body height 74 [in_i] 74 [in_i] [facility] ([facility]) 6'2" Oxygen saturation in Arterial blood by Pulse oximetry 98 % 98 % [facility] ([facility]) Heart rate 67 /min 67 /min [facility] ([facility]) Diastolic blood pressure 82 mm[Hg] 82 mm[Hg] [facility] ([facility]) Systolic blood pressure 118 mm[Hg] 118 mm[Hg] [facility] ([facility]) Body weight 102.967 kg 102.967 kg [facility] ([facility]) Body mass index (BMI) [Ratio] 28.4 kg/m2 28.4 k g/m2 [facility] ([facility]) Body weight 227.00 [lb_av] 227.00 [lb_av] [facility] Body height 75 [in_i] 75 [in_i] [facility] ([facility]) 6'3" Oxygen saturation in Arterial blood by Pulse oximetry 98 % 98 % [facility] ([facility]) Room Air Heart rate 83 /min 83 /min [facility] ([facility]) Diastolic blood pressure 90 mm[Hg] 90 mm[Hg] [facility] ([facility]) Systolic blood pressure 118 mm[Hg] 118 mm[Hg] [facility] ([facility]) Inhaled oxygen concentration 21 % 21 % [facility] Inhaled oxygen flow rate 0 L/min 0 L/min MICHAEL [facility] Oxygen saturation in Arterial blood by Pulse oximetry 94 % 94 % MICHAEL ([facility]) PhenX - pain, abdominal - type and intensity protocol 0 0 MICHAEL ([facility]) Body weight 227 [lb_av] 227 [lb_av] MICHAEL ([facility]) Body temperature 98.2 [degF] 98.2 [degF] [place] AY ([facility]) Respiratory rate 24 /min 24 /min [place] ([facility]) Heart rate rhythm 1 1 Y ([facility]) Heart rate 102 /min 102 /min [place]AY ([facility]) Diastolic blood pressure 98 mm[Hg] 98 mm[Hg] [place] ([facility]) Systolic blood pressure 136 mm[Hg] 136 mm[Hg] [facility] ([facility]) Inhaled oxygen concentration 21 % 21 % [place] ([facility]) Inhaled oxygen flow rate 0 L/min 0 L/min [place] ([facility]) Oxygen saturation in Arterial blood by Pulse oximetry 94 % 94 % [place] ([facility]) PhenX - pain, abdominal - type and intensity protocol 1 1 [place] ([facility]) Body surface area Derived from formula 2.26 m2 2.26 m2 [place] ([facility]) Body mass index (BMI) [Ratio] 29.7 kg/m2 29.7 k g/m2 [place] ([facility]) Body weight 225 [lb_av] 225 [lb_av] [place] ([facility]) Body height 73 [in_i] 73 [in_i] [place] ([facility]) Body temperature 96.2 [degF] 96.2 [degF] [place] AY ([facility]) Respiratory rate 21 /min 21 /min [place] ([facility]) Heart rate rhythm 1 1 ([facility]) Heart rate 73 /min 73 /min [place] ([facility]) Diastolic blood pressure 91 mm[Hg] 91 mm[Hg] [place] ([facility]) Systolic blood pressure 130 mm[Hg] 130 mm[Hg] [facility] ([facility]) Patient Treatment Plan of Care Planned Activity Planned Date Details Description Data Source (s) Gentamicin Sulfate (FDC) 3 MG/ML Ophthalmic Solution [facility]21 [facility] Erythromycin 0.005 MG/MG Ophthalmic Ointment 05/20/2020 12:00:00 AM EST MICHAEL ([facility]) PARoxetine HCl 20 MG Oral Tablet 05/20/2020 12:00:00 AM EST MICHAEL ([facility]) PARoxetine HCl 20 MG Oral Tablet 05/05/2020 12:00:00 AM EST MICHAEL ([facility]) Paroxetine 20 MG Oral Tablet [Paxil] 05/10/2019 12:00:00 AM EST MICHAEL ([facility]) 24 HR Nicotine 0.583 MG/HR Transdermal Patch 06/09/2018 12:00:00 AM EST MICHAEL ([facility]) 24 HR Nicotine 0.292 MG/HR Transdermal Patch 06/09/2018 12:00:00 AM EST MICHAEL ([facility]) Nicotine 4 MG Oral Lozenge 05/09/2018 12:00:00 AM EST MICHAEL ([facility]) Paroxetine 20 MG Oral Tablet [Paxil] 05/09/2018 12:00:00 AM EST MICHAEL ([facility])
[2020-06-25 04:15] VITALS: BP 151/96
== END 2020-06-25 04:31 | disposition home or self-care (01) ==
LOC: M ED 22:27
DX: R51.9 Headache, unspecified (principal); F41.9 Anxiety disorder, unspecified; F17.200 Nicotine dependence, unspecified, uncomplicated; Z79.899 Other long term (current) drug therapy
CPT/HCPCS: 70450; 80047; 85027; 85652; 86140; 96361; 96374; 96375; 99284; J1200; J1885; J2765

== ENCOUNTER → 2020-07-11 | Outpatient (REF) | payer BC ==
[~2020-07-11] MED LIST changes: +AZEL1SPR3 NARES; +KETO10TAB PO
[2020-07-11 19:28] LABS: APPEARANCE, URINE CLEAR (CLEAR); BACTERIA, URINE AUTO NEGATIVE (NEGATIVE); BILIRUBIN, URINE AUTO NEGATIVE (NEGATIVE); BLOOD, URINE BLOOD 1+ (NEGATIVE); COLOR, URINE YELLOW (YELLOW); GLUCOSE, URINE (UA) AUTO NEGATIVE (NEGATIVE); KETONE, URINE AUTO NEGATIVE (NEGATIVE); LEUKOCYTE ESTERASE, URINE AUTO NEGATIVE (NEGATIVE); MUCUS, URINE SMALL (NEGATIVE); NITRITE, URINE AUTO NEGATIVE (NEGATIVE); PROTEIN, URINE AUTO NEGATIVE (NEGATIVE); RBC, URINE AUTO 1 /HPF (0-3); SPECIFIC GRAVITY URINE AUTO 1.014 (1.002-1.035); SQUAMOUS EPITHELIAL CELL UR AU 0 /HPF (0-6); WBC, URINE AUTO 1 /HPF (0-3)
[2020-07-15 00:07] LABS: PSA TOTAL 0.7 ng/mL (0.0-4.0)
== END ==
LOC: M PLALAB 17:24
PROVIDERS: ATTEND Urology
DX: R97.20 Elevated prostate specific antigen [PSA] (principal)

== ENCOUNTER → 2021-02-05 | Outpatient (CLI) | payer BC ==
--- NOTE | 2021-02-05 15:49 | REP ---
INDICATION: ABN FINDINGS OF LUNG FIELD COMPARISON: Multiple the latest 06/30/2020 TECHNIQUE: Standard helical technique without intravenous contrast FINDINGS: Mediastinum and pulmonary venkat are unchanged. There is no evidence of a mass or adenopathy. There are no pleural or pericardial effusions. There is no significant change in appearance of the imaged upper abdomen or imaged osseous structures. Evaluation of the lung quiñones shows heavy patchy peripheral interstitial opacities which have increased slightly from the prior exam. Note is again made of early bilateral peripheral honeycomb lung formation. In the right lower lobe there is an intra fissural 5 mm size nodule which represents a change from the prior exam IMPRESSION: 1. There is evidence of interstitial lung disease as described above. 2. There is a new 5 mm size nodule in the right lung as described above. According to the revised Fleischner society criteria this nodule represents a category 3 lesion for which a six-month follow-up chest CT is recommended. <Electronically signed by Harish Richey > 02/05/21 [id number]
== END ==
LOC: M PLAIMG 15:14
PROVIDERS: ATTEND Internal Medicine Pulmonary Disease
DX: R91.8 Other nonspecific abnormal finding of lung field (principal)

== ENCOUNTER → 2021-10-15 | Outpatient (CLI) | payer BC, OTHER | LOC: M RAD 15:40 | PROVIDERS: ATTEND Family Medicine | DX: F17.210 Nicotine dependence, cigarettes, uncomplicated (principal) ==

== ENCOUNTER → 2023-01-06 | Outpatient (CLI) | payer BC | LOC: M RAD 09:37 | PROVIDERS: ATTEND Family Medicine | DX: F17.210 Nicotine dependence, cigarettes, uncomplicated (principal) ==

== ENCOUNTER 2023-11-14 12:10 | Emergency (ER) | payer BC ==
[~2023-11-14] VITALS: Ht 188 cm; Wt 103.7 kg
[2023-11-14 13:02] LABS: BASO % 0.3 % (0.0-1.0); EOS # 0.1 10^3/uL (0.0-0.5); HEMOGLOBIN 14.4 g/dl (13.5-17.5); LYMPH # 1.3 10^3/uL (1.5-5.0); LYMPH % 13.5 % (24.0-44.0); MEAN CORPUSCULAR HEMOGLOBIN 32.3 pg (27.0-33.0); MEAN CORPUSCULAR HGB CONC 34.3 g/dl (32.0-36.5); MEAN CORPUSCULAR VOLUME 94.2 fl (80.0-96.0); MONO # 0.8 10^3/uL (0.0-0.8); MONO % 8.7 % (2.0-8.0); NEUTROPHILS # 7.2 10^3/uL (1.5-8.5); NEUTROPHILS % 76.2 % (36.0-66.0); PLATELET COUNT, AUTOMATED 250 10^3/uL (150-450); RED BLOOD COUNT 4.46 10^6/uL (4.30-6.10); WHITE BLOOD COUNT 9.4 10^3/uL (4.0-10.0)
[2023-11-14 13:31] LABS: BLOOD UREA NITROGEN 15 MG/DL (9-23); CARBON DIOXIDE LEVEL 29 MMOL/L (20-31); CHLORIDE LEVEL 104 MMOL/L (98-107); CK-MB VALUE MASS < 1.0 NG/ML (<3.6); CREATININE FOR GFR 1.05 MG/DL (0.70-1.30); GLOMERULAR FILTRATION RATE > 60.0 (>49); GLUCOSE, FASTING 86 MG/DL (74-106); POTASSIUM SERUM 4.5 MMOL/L (3.5-5.1); SODIUM LEVEL 136 MMOL/L (136-145)
[2023-11-14 13:33] LABS: CPK CREATINE PHOSPHOKINASE 119 U/L (46-171); MB/CK RELATIVE INDEX 0.84 (< OR =4)
[2023-11-14 15:12] LABS: CK-MB VALUE MASS < 1.0 NG/ML (<3.6)
[2023-11-14 15:22] LABS: CPK CREATINE PHOSPHOKINASE 132 U/L (46-171); MB/CK RELATIVE INDEX 0.75 (< OR =4)
[2023-11-14] MEDS ORDERED: ISOVUE-370 76% 100ML VIAL As Ordered ONE (16:43)
[2023-11-14 17:05] LABS: RSV AMPLIFICATION NEGATIVE (NEGATIVE)
[2023-11-14] MEDS ORDERED: ELIQ5TAB PO (17:56)
[2023-11-14 18:15] VITALS: BP 164/98; TEMP 98.4; O2SAT 96
[2023-11-14] MEDS: APIXABAN 5 MG TAB (ELIQUIS) PO ONE (18:26)
== END 2023-11-14 18:40 | disposition home or self-care (01) ==
LOC: M ED 12:10
DX: I26.99 Other pulmonary embolism without acute cor pulmonale (principal); I10 Essential (primary) hypertension; E78.5 Hyperlipidemia, unspecified; J44.9 Chronic obstructive pulmonary disease, unspecified; F17.210 Nicotine dependence, cigarettes, uncomplicated; Z79.2 Long term (current) use of antibiotics; Z79.899 Other long term (current) drug therapy
CPT/HCPCS: 36415; 71046; 71275; 80048; 82550; 82553; 84484; 85025; 87486; 87581; 87631; 87633; 87798; 93005; 93041; 93970; 94760; 99285; Q9967

== ENCOUNTER → 2025-01-11 | Outpatient (REF) | payer BC ==
[~2025-01-11] MED LIST changes: +ATOR1TAB21 PO; +ELIQ5TAB PO; +VITA100093 PO
[2025-01-11 18:26] LABS: CREATININE FOR GFR 1.19 MG/DL (0.70-1.30); GLOMERULAR FILTRATION RATE 69.5 (>49)
== END ==
LOC: M LABDRAWC 17:12
PROVIDERS: ATTEND Radiology Radiation Oncology
DX: C34.12 Malignant neoplasm of upper lobe, left bronchus or lung (principal)